=== PATIENT | female | born 1955 | race Hispanic/Latino ===

== ENCOUNTER 2016-09-25 09:04 | Emergency (ER) | payer OTHER, MEDICARE ==
[2016-09-25 09:04] VITALS: BMI 23.0
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
[2016-09-25 10:06] VITALS: TEMP 98.2
[2016-09-25 10:53] VITALS: O2SAT 99
[2016-09-25 11:03] VITALS: BP 132/79; PULSE 66; RESP 18
--- NOTE | 2016-09-25 11:27 | RAD ---
PROCEDURE: Right Hip and pelvis Radiographs. HISTORY: pain COMPARISON: None. FINDINGS: BONES: Normal. No fracture. JOINTS: Normal. SOFT TISSUES: Normal. OTHER FINDINGS: None. IMPRESSION: Negative study
--- NOTE | 2016-09-25 11:29 | RAD ---
PROCEDURE: Right Knee Radiographs. HISTORY: pain COMPARISON: None. FINDINGS: BONES: Normal. No fracture. JOINTS: Normal. No osteoarthritis. JOINT EFFUSION: None. OTHER FINDINGS: The patella is unremarkable IMPRESSION: Normal radiographs of the right knee.
== END 2016-09-25 11:21 | disposition home or self-care (01) ==
LOC: ED 09:04
DX: M25.561 Pain in right knee (principal)
CPT/HCPCS: 73502; 73562; 96372; 99284; J1885

== ENCOUNTER 2017-06-26 09:10 | Inpatient (IN) | payer MEDICARE, OTHER ==
[2017-06-26 09:26] VITALS: BMI 24.7
--- NOTE | 2017-06-26 10:04 | RAD ---
HISTORY: dizziness COMPARISON: No prior. FINDINGS: LUNGS: No active pulmonary disease. PLEURA: No significant pleural effusion identified, no pneumothorax apparent. CARDIOVASCULAR: Normal. OSSEOUS STRUCTURES: No significant abnormalities. VISUALIZED UPPER ABDOMEN: Normal. OTHER FINDINGS: None. IMPRESSION: No active disease.
[2017-06-26] MEDS ORDERED: Sodium Chloride 0.9% 500 ML IV STA (10:21)
--- NOTE | 2017-06-26 10:21 | ED PDOC ---
Arrival/HPI - General Chief Complaint: Lower Extremity Problem/Injury Time Seen by Provider: 06/26/17 09:33 Historian: Patient - History of Present Illness Narrative History of Present Illness (Text): 06/26/17 10:18 62-year-old female presents today with dizziness, unsteady gait and generalized weakness. Patient states yesterday she noticed that even with walking with a walker she felt as if she was walking on a cruise ship. Patient states she felt as if her gait was off balance and she felt as if she was going to fall. Patient denies headaches or weakness. She denies chest pain or shortness of breath. She denies abdominal pain. Patient states she has been constipated lately. Patient states she had a small bowel movement this morning. Patient denies bladder or bowel incontinence. Patient states she has a history of diabetes and a history of diabetic neuropathy. Patient states she has seen a neurologist in the past. Patient denies any recent trauma or injury. Patient denies blurred vision. Patient denies changes in appetite. No other complaints Time/Duration: Other (yesterday) Past Medical History - Provider Review Nursing Documentation Reviewed: Yes - Travel History Have you recently traveled outside [place] w/in the past 3 mons?: No - Tetanus Immunization Tetanus Immunization: Unknown - Cardiac Hx Hypertension: Yes - Pulmonary Hx Respiratory Disorders: No - Neurological Hx Neurological Disorder: No - HEENT Hx HEENT Disorder: No - Renal Hx Renal Disorder: No - Endocrine/Metabolic Hx Diabetes Mellitus Type 2: Yes - Hematological/Oncological Hx Blood Transfusions: No - Musculoskeletal/Rheumatological Hx Back Pain: Yes Hx Degenerative Joint Disease: Yes Other/Comment: Charcot Joint (Left Ankle) - Psychiatric Hx Substance Use: No - Surgical History Other/Comment: Left Shoulder Surgery (2012). Left Ankle - Anesthesia Hx Anesthesia Reactions: Yes Hx Malignant Hyperthermia: No Family/Social History - Physician Review Nursing Documentation Reviewed: Yes Family/Social History: Unknown Family HX Smoking Status: Never Smoked Hx Alcohol Use: Yes Hx Substance Use: No Allergies/Home Meds Allergies/Adverse Reactions: Allergies No Known Allergies Allergy (Verified 08/08/13 10:26) Home Medications: Home Meds Medication Instructions Recorded Confirmed Alprazolam [Xanax] 1 tab PO BID 09/25/16 09/25/16 Aspirin [Aspirin Chewable] 1 tab PO Q72 09/25/16 09/25/16 Citalopram Hydrobromide [Celexa] 1 tab PO DAILY 09/25/16 09/25/16 DULoxetine [Cymbalta] 1 cap PO BID 09/25/16 09/25/16 Multivitamin/Iron/Folic Acid 1 tab PO DAILY 09/25/16 09/25/16 [Centrum Adults Tablet] Naloxegol Oxalate [Movantik] 1 tab PO DAILY 09/25/16 09/25/16 Pregabalin [Lyrica] 1 cap PO TID 09/25/16 09/25/16 Valsartan [Diovan] 1 tab PO DAILY 09/25/16 09/25/16 metFORMIN [glucOPHAGE] 1 tab PO DAILY 09/25/16 09/25/16 Review of Systems - Review of Systems Constitutional: Fatigue. absent: Fevers ENT: absent: Sore Throat, Sinus Congestion Respiratory: absent: SOB, Cough Cardiovascular: absent: Chest Pain, Palpitations Gastrointestinal: Constipation. absent: Abdominal Pain, Diarrhea, Nausea, Vomiting Genitourinary Female: absent: Dysuria, Frequency, Hematuria Musculoskeletal: Arthralgias, Back Pain (chronic). absent: Neck Pain Skin: absent: Rash, Pruritis Neurological: Dizziness, Disequilibrium. absent: Headache Psychiatric: absent: Anxiety, Depression, Suicidal Ideation Physical Exam Vital Signs Reviewed: Yes Vital Signs Temp Pulse Resp BP Pulse Ox 06/26/17 09:27 81 16 130/91 H 99 06/26/17 09:26 98.8 F 72 18 130/90 98 Temperature: Afebrile Blood Pressure: Normal Pulse: Regular Respiratory Rate: Normal Appearance: Positive for: Well-Appearing, Non-Toxic, Comfortable Pain Distress: None Mental Status: Positive for: Alert and Oriented X 3 - Systems Exam Head: Present: Atraumatic Mouth: Present: Dry. No: Drooling, Trismus Pharnyx: Present: Normal Neck: Present: Normal Range of Motion Respiratory/Chest: Present: Clear to Auscultation, Good Air Exchange. No: Respiratory Distress, Accessory Muscle Use Cardiovascular: Present: Regular Rate and Rhythm, Normal S1, S2. No: Murmurs Abdomen: No: Tenderness, Distention, Peritoneal Signs, Rebound, Guarding Rectal: Present: Normal Rectal Tone. No: Occult Blood, Rectal Tenderness, Gross Blood, Melena, Hemorrhoids, Fissures Back: Present: Normal Inspection. No: CVA Tenderness, Midline Tenderness, Paraspinal Tenderness Upper Extremity: Present: Normal ROM Lower Extremity: Present: Normal ROM, Neurovascularly Intact, Capillary Refill < 2 s. No: CALF TENDERNESS, Tenderness, Swelling, Erythema Neurological: Present: GCS=15, Speech Normal, Motor Func Grossly Intact. No: Normal Sensory Function (decreased sensation in lower legs bilaterally), Gait Normal Skin: Present: Warm, Dry, Normal Color. No: Rashes Psychiatric: Present: Alert, Oriented x 3 Medical Decision Making ED Course and Treatment: 06/26/17 10:22 62yr old female with dizziness and disequilibrium since yesterday. No trauma or injury CBC: wnl CMP: wnl Troponin: wnl EKG: Sinus rhythm with PACs at 81 bpm normal axis normal intervals no ST elevations Chest x-ray: wnl Urinalysis: wnl Head CT: FINDINGS: HEMORRHAGE: No intracranial hemorrhage. BRAIN: No mass effect or edema. No atrophy or chronic microvascular ischemic changes. VENTRICLES: Unremarkable. No hydrocephalus. CALVARIUM: Unremarkable. PARANASAL SINUSES: There is complete opacification of the left maxillary sinus and partial opacification of left ethmoid and frontal sinuses MASTOID AIR CELLS: Unremarkable as visualized. No inflammatory changes. OTHER FINDINGS: None. IMPRESSION: No acute intracranial findings. Left-sided sinusitis 06/26/17 11:38 pt is non toxic well appearing; no distress. Asa given Po augmentin given Po 06/26/17 12:[address] sun; accepts observational status admission; disequilibrium and generalized weakness. impression; disequilibrium, generalized weakness, sinusitis Admit observational status to remote telemetry with neurologist consult. Reassessment Condition: Re-examined, Unchanged - Lab Interpretations Lab Results: 06/26/17 10:10 06/26/17 10:10 Lab Results 06/26/17 10:55: Urine Color Yellow, Urine Appearance Clear, Urine pH 6.0, Ur Specific [place] >= 1.030, Urine Protein 30 H, Urine Glucose (UA) Negative, Urine Ketones >=80, Urine Blood Negative, Urine Nitrate Negative, Urine Bilirubin Negative, Urine Urobilinogen 0.2, Ur Leukocyte Esterase Negative, Urine RBC 0 - 2, Urine WBC 0 - 2, Ur Epithelial Cells Many, Urine Bacteria Mod 06/26/17 10:10: WBC 9.9, RBC 4.61, Hgb 13.1, Hct 40.6, MCV 88.1, MCH 28.4, MCHC 32.3, RDW 13.1, Plt Count 418, MPV 9.6, Gran % 81.6 H, Lymph % (Auto) 13.3 L, [place] % (Auto) 4.1, Eos % (Auto) 0.8 L, Baso % (Auto) 0.2, Gran # 8.05 H, Lymph # (Auto) 1.3, [place] # (Auto) 0.4, Eos # (Auto) 0.1, Baso # (Auto) 0.02 06/26/17 10:10: Sodium 143, Potassium 3.9, Chloride 106, Carbon Dioxide 24, Anion Gap 17, BUN 14, Creatinine 0.7, Est GFR ( Amer) > 60, Est GFR (Non- Af Amer) > 60, Random Glucose 100, Calcium 10.2, Total Bilirubin 0.4, AST 16, ALT 26, Alkaline Phosphatase 56, Lactate Dehydrogenase 335, Total Creatine Kinase 30 L, Troponin I < 0.01, Total Protein 7.4, Albumin 4.5, Globulin 2.9, Albumin/Globulin Ratio 1.5 - RAD Interpretation Radiology Orders: 06/26/17 09:40 HEAD W/O CONTRAST [CT] Stat CHEST PORTABLE [RAD] Stat - Medication Orders Current Medication Orders: Aspirin (Aspirin) 325 mg PO STAT STA Stop: 06/26/17 12:43 Discontinued Medications Sodium Chloride (Sodium Chloride 0.9%) 500 mls @ 999 mls/hr IV .Q31M STA Stop: 06/26/17 10:51 Last Admin: 06/26/17 11:39 Dose: 999 mls/hr eMAR Start Stop Document 06/26/17 11:39 [email or web address] (Rec: 06/26/17 11:39 [email or web address] [id number]) Intravenous Solution Start Date 06/26/17 Start Time 11:39 End Date 06/26/17 NIHSS Scale ([place]) Time Performed: 09:40 - How Severe is the Stoke Baseline Level of Consciousness: 0=Alert LOC to Questions: 0=Both comments correct LOC to commands: 0=Obeys both correctly Best Gaze: 0=Normal Visual: 0=No visual loss Facial: 0=Normal Motor Arm - Left: 0=No drift Motor Arm - Right: 0=No drift Motor Leg - Left: 0=No drift Motor Leg - Right: 0=No drift Limb Ataxia: 0=Absent Sensory: 1=Mild to moderate loss Best Language: 0=No aphasia Dysarthia: 0=Normal articulation Extinction & Inattention (Neglect): 0=Normal, no object Score: 1 Risk Level: Minor Stroke Risk rTPA Inclusion/Exclusion - Refusal of Treatment Patient Refused Treatment: No - Inclusion Criteria for Altepase Patient is 18 years or Older: Yes The Clinical Diagnosis of Ischemic Stroke That is Causing a Potentially Disabling Neurological Deficit: No Time of Onset is Well Established to be Less Than 270 Minute Before Treatment Would Begin: No Risk/Benefit Discussed With Patient/Family Member Present: No Disposition/Present on Arrival - Present on Arrival Any Indicators Present on Arrival: No History of DVT/PE: No History of Uncontrolled Diabetes: No Urinary Catheter: No History of Decub. Ulcer: No History Surgical Site Infection Following: None - Disposition Have Diagnosis and Disposition been Completed?: Yes Diagnosis: Disequilibrium, Generalized weakness Disposition: HOSPITALIZED Disposition Time: 12:00 Patient Plan: Observation Patient Problems: Current Active Problems Problem Status Onset Disequilibrium Acute Generalized weakness Acute Condition: STABLE Discharge Instructions (ExitCare): Weakness (ED) Forms: [email or web address] ([place])
[2017-06-26 10:27] LABS: BASO # 0.02 K/mm3 (0.0-2.0); BASO % 0.2 % (0.0-3.0); EOS # 0.1 (0.0-0.7); EOS % 0.8 % (1.5-5.0); GRAN # 8.05 (1.4-6.5); GRAN % 81.6 % (50.0-68.0); HEMOGLOBIN 13.1 g/dL (12.0-16.0); LYMPH # 1.3 (1.2-3.4); LYMPH % 13.3 % (22.0-35.0); MEAN CELL VOLUME 88.1 fl (80.0-105.0); MEAN CORPUSCULAR HEMOGLOBIN 28.4 pg (25.0-35.0); MEAN CORPUSCULAR HGB CONC 32.3 g/dl (31.0-37.0); MEAN PLATELET VOLUME 9.6 fl (7.0-11.0); MONO # 0.4 (0.1-0.6); MONO % 4.1 % (1.0-6.0); RBC 4.61 10^6/uL (3.5-6.1); RED CELL DISTRIBUTION WIDTH 13.1 % (11.5-14.5); WHITE BLOOD COUNT 9.9 10^3/ul (4.5-11.0)
[2017-06-26 10:31] LABS: ALB/GLOB RATIO 1.5 (1.1-1.8); ALBUMIN 4.5 g/dL (3.0-4.8); ALT/SGPT 26 U/L (7-56); AST/SGOT 16 U/L (14-36); BLOOD UREA NITROGEN 14 mg/dL (7-21); CALCIUM 10.2 mg/dL (8.4-10.5); GFR AFRICAN-AMERICAN > 60; GFR NON-AFRICAN AMERICAN > 60
[2017-06-26 10:42] LABS: TROPONIN I < 0.01 ng/mL
[2017-06-26 11:08] LABS: URINE APPEARANCE CLEAR (CLEAR); URINE BILIRUBIN NEGATIVE (NEGATIVE); URINE BLOOD NEGATIVE (NEGATIVE); URINE COLOR YELLOW (YELLOW); URINE GLUCOSE (UA) NEGATIVE (NEGATIVE); URINE LEUKOCYTE ESTERASE NEGATIVE Leu/uL (NEGATIVE); URINE PROTEIN 30 mg/dL (<30 mg/dL); URINE UROBILINOGEN 0.2 E.U./dL (<1 E.U./dL)
--- NOTE | 2017-06-26 11:13 | CT ---
PROCEDURE: CT HEAD WITHOUT CONTRAST. HISTORY: dizziness COMPARISON: None available. TECHNIQUE: Axial computed tomography images were obtained through the head/brain without intravenous contrast. Radiation dose: Total exam DLP = 904 mGy-cm. This CT exam was performed using one or more of the following dose reduction techniques: Automated exposure control, adjustment of the mA and/or kV according to patient size, and/or use of iterative reconstruction technique. FINDINGS: HEMORRHAGE: No intracranial hemorrhage. BRAIN: No mass effect or edema. No atrophy or chronic microvascular ischemic changes. VENTRICLES: Unremarkable. No hydrocephalus. CALVARIUM: Unremarkable. PARANASAL SINUSES: There is complete opacification of the left maxillary sinus and partial opacification of left ethmoid and frontal sinuses MASTOID AIR CELLS: Unremarkable as visualized. No inflammatory changes. OTHER FINDINGS: None. IMPRESSION: No acute intracranial findings. Left-sided sinusitis
[2017-06-26 11:40] LABS: URINE RBC 0 - 2 /hpf (0-2); URINE WBC 0 - 2 /hpf (0-6)
[2017-06-26 11:41] LABS: URINE BACTERIA MOD (NEG); URINE EPITHELIAL CELLS MANY /hpf (0-5)
[2017-06-26] MEDS ORDERED: Amoxicillin-Clav 875-125 mg Tab PO STA (13:54)
--- NOTE | 2017-06-26 14:38 | CARD ---
APPROVED REPORT EKG Measurement Heart [id number] IN [id number] <Conclusion> Sinus rhythm with premature atrial complexes Small q in 2,3, F
[2017-06-26] MEDS ORDERED: Pneumococcal 23-Valent Vaccine IM ONE (16:25)
--- NOTE | 2017-06-26 16:47 | CON ---
DATE: 06/26/2017 NEUROLOGY CONSULTATION CHIEF COMPLAINT: Unsteady gait, generalized weakness. HISTORY OF PRESENT ILLNESS: This is a 62-year-old woman with history of hypertension, dyslipidemia, type 2 diabetes mellitus, history of diabetic peripheral neuropathy, on Cymbalta and history Charcot joints and arthritis, who presented to the hospital because of feeling lightheaded and felt like when she was walking with her walker, she felt she was walking on the cruise ship and felt off balance and that she was going to fall. No focal weakness of the extremities. She had a small bowel movement this morning, but has been also constipated recently. She denies any focal weakness of the extremities. No changes in sense of vision, taste, or smell. Her vital signs are stable. Blood pressure 129/88. PAST MEDICAL HISTORY: History of hypertension, dyslipidemia, and diabetes. REVIEW OF SYSTEMS: A 14-point review of systems negative except as per the HPI. FAMILY HISTORY: Noncontributory. ALLERGIES: NO KNOWN DRUG ALLERGIES. SOCIAL HISTORY: No illicit drug use, smoking, or EtOH abuse. MEDICATIONS: Reviewed by nurse per reconciliation sheet. PHYSICAL EXAMINATION: VITAL SIGNS: Temperature 98.2, pulse rate 75, blood pressure 129/88, respiratory rate 19, and oxygen saturation 99% on room air. GENERAL: The patient is sitting up in bed, in no acute distress. HEENT: Head is atraumatic and normocephalic. PERRLA. Extraocular muscles intact. NECK: Supple. No JVD. No adenopathy noted. LUNGS: Clear to auscultation. No adventitious sounds. HEART: S1 and S2, normal rate and rhythm. No murmur, rubs, or gallops. ABDOMEN: Soft, nontender, and nondistended. Bowel sounds present. EXTREMITIES: No clubbing. No cyanosis. Peripheral pulses 2+ felt bilaterally. NEUROLOGIC: The patient is alert and oriented to person, place, month, and year. Speech is fluent without any errors. Cranial nerves II through XII intact. Motor: Moves all extremities equally. Toes are downgoing bilaterally. Sensory: Decreased light touch and pinprick up to the calves bilaterally. Decreased vibration of the toes. DTRs are 2+ throughout except for 1 at both knees and also the ankles. Coordination: [id number] intact. No dysmetria noted. Gait is deferred for now. LABORATORY DATA: Sodium 143, potassium 3.9, chloride 106, carbon dioxide 24. BUN of 14, creatinine 0.7. Random glucose 100. ASSESSMENT AND PLAN: This is a 62-year-old woman with past medical history of hypertension, dyslipidemia, type 2 diabetes mellitus, diabetic peripheral neuropathy, felt lightheaded, felt like she was off balance as she was on a cruise ship and was going to fall. CT scan of the head showed no acute intracranial abnormalities. Her CBC and CMP within normal limits. Chest x-ray is within normal limits. At this time, she does have on neurological evaluation evidence diabetic peripheral neuropathy which can give her wide-based gait disequilibrium. At this time, would recommend, 1. MRI of the brain to rule out any acute cerebellar infarcts. 2. Keep blood sugars between 140 and 180. 3. Aspirin 81 mg, Lipitor 40 mg for stroke prevention. 4. PT/OT evaluation. 5. Continue with ongoing pregabalin for underlying neuropathy that she was taken at home and continue with current present medical management. We will get MRI of the brain. Thank you for this consult. Federico Figueroa MD
[2017-06-26] MEDS ORDERED: KETOROLAC TROMETHAMINE 10 MG PO PRN (18:27)
--- NOTE | 2017-06-26 20:36 | MRI ---
EXAM: MR Head Without Intravenous Contrast EXAM DATE/TIME: 06/26/2017 3:41 PM CLINICAL HISTORY: The patient age is 62 years old and is female; Signs and symptoms; Altered mental status/memory loss; Confusion or disorientation; Additional info: Ataxia, AMS patient refused further scanning, best exam possible Facility exam id and description: Mri br s brain without contrast TECHNIQUE: Magnetic resonance images of the head/brain without intravenous contrast in multiple planes. COMPARISON: MR - BRAIN W WO CONTRAST 2016-12-21 13:09 FINDINGS: Limitations: This study is limited by the absence of sagittal T1 and axial FLAIR sequences. Brain: Foci of mild increased signal intensity are identified on the diffusion sequence within the right cerebellar lobe, right middle cerebellar peduncle, and right posterior medulla, new compared to the prior study. These findings are concerning for subacute infarcts. There are scattered foci of high T2 signal intensity within the cerebral white matter. There is no mass effect or restricted diffusion associated with these foci. In a patient this age, this likely represents chronic small vessel ischemic disease. T2 hyperintense chronic lacunar infarcts are identified within the right thalamus, aliyah, and right cerebral peduncle. There is no restricted diffusion suggestive of an acute infarct on the remainder of the study. Ventricles: There is mild stable ventriculomegaly. Stable sulcal atrophy is also visualized. Bones/joints: No acute adenopathy. Sinuses: There is complete filling of the left maxillary sinus, with mucosal thickening and complex effusion. Effusions are visualized within left ethmoid air cells. There is mucosal thickening of the left frontal sinus. Mastoid air cells: Minimal effusion is identified within the right mastoid air cells. Auditory system: Evaluation of the left internal auditory canal is limited. Orbits: Bilateral orbital lens implants are identified. IMPRESSION: 1. Foci of mild increased signal intensity are identified on the diffusion sequence within the right cerebellar lobe, right middle cerebellar peduncle, and right posterior medulla, new compared to the prior study. These findings are concerning for subacute infarcts. 2. There is mild stable ventriculomegaly. Stable sulcal atrophy is also visualized. 3. There are scattered foci of high T2 signal intensity within the cerebral white matter. In a patient this age, this likely represents chronic small vessel ischemic disease. 4. Chronic lacunar infarcts are identified within the right thalamus, aliyah, and right cerebral peduncle. 5. Paranasal sinus disease is noted above. 6. This study is incomplete.
[2017-06-26] MEDS: Insulin Lispro (humaLOG) LOW Coverage SC SCH (21:33)
[2017-06-27] MEDS: oxyCODONE 30 mg Immediate Release Tab PO PRN ×3 (06:59→22:08)
[2017-06-27 07:44] LABS: HDL CHOLESTEROL 46 mg/dL (29-60)
[2017-06-27 07:55] LABS: LDL CHOLESTEROL 55 mg/dL (0-129)
--- NOTE | 2017-06-27 08:11 | CP.PCM.HP ---
<Celine Stone - Last Filed: 06/27/17 08:59> History of Present Illness - History of Present Illness History of Present Illness: H&P for Robe Taylor PGY2 This is a 62yo female with past medical history of HTN, NIDDM, osteoarthritis, chronic pain on opiates, anxiety/depression who came to ED for weakness. Patient reports she was walking with her walker when all of a sudden she felt unsteady on her feet. She states she was feeling off-balance and as if she was "on a boat". This has never happened before and she did not fall. Patient called in the ambulance to bring her to the hospital. She denies dizziness, vision/hearing changes, numbness/tingling, fall, chest pain or shortness of breath, fever or chills. Patient does report feeling constipated and anxious at times. Past medical history: HTN, NIDDM, peripheral neuropathy, osteoarthritis, chronic pain on opiates, anxiety/depression Past surgical history: Sugery on L foot for charcot joint Home meds: As per MAR Allergies: NKDA Social history: Drinks occasionally, Denies tobacco or drug use. Uses walker at home Family history: Mom- 96 (living) denies history of DC, CVA, or cancer in immediate family Present on Admission - Present on Admission Any Indicators Present on Admission: No Review of Systems - Review of Systems All systems: reviewed and no additional remarkable complaints except Review of Systems: + for generalized weakness, constipation, and anxiety and all other ROS were reviewed and were negative Past Patient History - Tetanus Immunizations Tetanus Immunization: Unknown - Past Social History Smoking Status: Never Smoked Alcohol: Occasional Drugs: Denies - CARDIAC Hx Hypertension: Yes - PULMONARY Hx Respiratory Disorders: No - NEUROLOGICAL Hx Neurological Disorder: No - HEENT Hx HEENT Problems: No - RENAL Hx Chronic Kidney Disease: No - ENDOCRINE/METABOLIC Hx Diabetes Mellitus Type 2: Yes - HEMATOLOGICAL/ONCOLOGICAL Hx Blood Transfusions: No - INTEGUMENTARY Hx Dermatological Problems: Yes Other/Comment: areas of red skin and red spider veins to ble, rednes both knees , scratch navas r ankle, callous 0.5cm round r great toe, pt refused to turn over to assess back due to c/o pain - MUSCULOSKELETAL/RHEUMATOLOGICAL Hx Back Pain: Yes Hx Degenerative Joint Disease: Yes Other/Comment: Charcot Joint (Left Ankle) - GASTROINTESTINAL Hx Gastrointestinal Disorders: Yes (constipation) - PSYCHIATRIC Hx Substance Use: No - SURGICAL HISTORY Other/Comment: Left Shoulder Surgery (2012). Left Ankle - ANESTHESIA Hx Anesthesia Reactions: Yes Hx Malignant Hyperthermia: No Meds Allergies/Adverse Reactions: Allergies Allergy/AdvReac Type Severity Reaction Status Date / Time No Known Allergies Allergy Verified 08/08/13 10:26 Physical Exam - Constitutional Appears: No Acute Distress - Head Exam Head Exam: ATRAUMATIC, NORMAL INSPECTION, NORMOCEPHALIC - Eye Exam Eye Exam: Normal appearance, PERRL Pupil Exam: NORMAL ACCOMODATION - ENT Exam ENT Exam: Mucous Membranes Moist - Neck Exam Neck exam: Positive for: Normal Inspection - Respiratory Exam Respiratory Exam: Clear to Auscultation Bilateral, NORMAL BREATHING PATTERN. absent: Rales, Rhonchi, Wheezes - Cardiovascular Exam Cardiovascular Exam: Tachycardia, REGULAR RHYTHM, +S1, +S2. absent: Gallop, Rubs, Systolic Murmur - GI/Abdominal Exam GI & Abdominal Exam: Distended (slightly ), Normal Bowel Sounds, Soft. absent: Mass, Rebound, Rigid, Tenderness - Extremities Exam Extremities exam: Positive for: normal inspection. Negative for: calf tenderness, pedal edema - Neurological Exam Neurological exam: Alert, CN II-XII Intact, Oriented x3 - Expanded Neurological Exam Expanded Patient oriented to: person, place, time Speech: Fluid Speech Cranial nerves: EOM's Intact: Normal, Facial Palsey w/Forehead Movement: Normal , Facial Palsey w/o Forehead Movement: Normal, Facial Sensation: Normal, Tongue Deviation: Normal Ataxia: Yes Cerebellar Function: Finger to Nose: Abnormal Left, Abnormal Right Upper motor neuron: Babinski Sign: Normal, Ludwig Neglect: Normal, Pronator Drift : Normal, Sensory Extinction: Normal Sensory exam: Lower Extremity 2 Point Discrimination: Normal, Lower Extremity Light Touch: Normal, Upper Extremity 2 Point Discrimination: Normal, Upper Extremity Light Touch: Normal Neuro motor strength exam: Left Upper Extremity: 5, Right Upper Extremity: 5, Left Lower Extremity: 5, Right Lower Extremity: 5 Coma Scale Eye Opening: SPONTANEOUS Coma Scale Motor Response: OBEYS COMMANDS Coma Scale Verbal: Oriented Coma Scale Total: 15 - Psychiatric Exam Psychiatric exam: Anxious, Normal Affect - Skin Skin Exam: Dry, Warm Results - Vital Signs Recent Vital Signs: Last Vital Signs Temp 98.2 F 06/27/17 07:51 Pulse 89 06/27/17 07:51 Resp 18 06/27/17 07:51 BP 146/82 06/27/17 07:51 Pulse Ox 96 06/27/17 07:51 - Labs Result Diagrams: 06/26/17 10:10 06/26/17 10:10 Labs: Laboratory Results - last 24 hr 06/26/17 06/27/17 06/27/17 21:30 07:00 07:35 POC Glucose (mg/dL) 88 92 Triglycerides 153 Cholesterol 137 LDL Cholesterol Direct 55 HDL Cholesterol 46 Assessment & Plan - Assessment and Plan (Free Text) Assessment: This is a 62yo female with past medical history of HTN, NIDDM, osteoarthritis, chronic pain on opiates, anxiety/depression admitted for sudden onset weakness. Head CT was negative, but MRI of brain was positive for subacute infarcts in R cerebellar and R posterior medullary region. Plan: 1. CVA - Head CT negative - MRI showed subacute infarcts in R cerebellar, R posterior medullary region with chronic lacunar infarcts - Neuro consulted- recs appreciated - ASA and Lipitor - Lipid panel within normal limits, Blood glucose controlled - PT/OT - Maintain euglycemia - Will obtain Echo (last echo in 2014 was normal with EF of 50%) 2. HTN - Continue Home meds: Cozaar 3. NIDDM - Continue Metformin, insulin sliding scale as needed - Maintain glucose between 140-180s - Continue Lyrica for hx of peripheral neuropathy 4. Anxiety/depression - continue home meds: Cymbalta, Celexa and Xanax - Will start patient on Ambien 5. Osteoarthritis - Continue home pain meds: Oxycodone 30mg q6h prn and Movantik 6. Constipation - Secondary to opioid use - Will give one dose enema then miralax daily GI ppx: Pepcid DVT ppx: Heparin SC Dispo: Patient will need physical therapy evaluation for possible acute v. subacute rehab. Case seen, discussed and reviewed with Dr. Perez. Robe Stone PGY2 - Date & Time Date: 06/27/17 Time: 09:22 <Nakul Perez - Last Filed: 06/27/17 18:24> Results - Vital Signs Recent Vital Signs: Last Vital Signs Temp 98.2 F 06/27/17 07:51 Pulse 89 06/27/17 07:51 Resp 18 06/27/17 07:51 BP 146/82 06/27/17 07:51 Pulse Ox 96 06/27/17 07:51 - Labs Result Diagrams: 06/26/17 10:10 06/26/17 10:10 Labs: Laboratory Results - last 24 hr 06/26/17 06/27/17 06/27/17 21:30 07:00 07:35 POC Glucose (mg/dL) 88 92 Triglycerides 153 Cholesterol 137 LDL Cholesterol Direct 55 HDL Cholesterol 46 06/27/17 06/27/17 11:15 16:14 POC Glucose (mg/dL) 86 83 Triglycerides Cholesterol LDL Cholesterol Direct HDL Cholesterol Assessment & Plan - Assessment and Plan (Free Text) Plan: Pt seen and examined by me. I reviewed the notes of the biomedical photographer and I agree with the note. I reviewed the labs and medications. Pt with MRI showing CVA in the Cerebellum. Neuro evaluation appreciated. Pt with need rehab. [facility]meet for constipation. She is on chronic narcotics for constipation.
[2017-06-27] MEDS ORDERED: Mineral Oil Enema 135 ml RC ONE (08:16)
[2017-06-27] MEDS: Insulin Lispro (humaLOG) LOW Coverage SC SCH ×4 (08:59→22:00)
[2017-06-27] MEDS: NALOXEGOL OXALATE PO SCH (10:00)
[2017-06-27] MEDS: POLYETHYLENE GLYCOL 3350 17 GM/Dose PACKET PO SCH ×2 (10:05→17:48)
[2017-06-27] MEDS: Multivitamin With Minerals Tab PO SCH (10:05)
--- NOTE | 2017-06-27 12:39 | US ---
PROCEDURE: Bilateral carotid artery duplex ultrasound HISTORY: Carotid stenosis CVA PHYSICIAN(S): Marc Lang MD. TECHNIQUE: Duplex sonography and color-flow Doppler were used to evaluate the carotid bifurcations and limited segments of the vertebral arteries bilaterally. FINDINGS: There is mild smooth hypoechoic plaque noted at the carotid bifurcations bilaterally. The peak systolic velocity in the proximal right internal carotid artery is 55 cm/sec. This corresponds to a 20 to 39% proximal right ICA stenosis. Normal systolic velocities are noted in the proximal right external carotid artery. There is antegrade flow in the right vertebral artery. The peak systolic velocity in the proximal left internal carotid artery is 62 cm/sec. This corresponds to a 20 to 39% proximal left ICA stenosis. Normal systolic velocities are noted in the proximal left external carotid artery. There is antegrade flow in the left vertebral artery. IMPRESSION: 1. Bilateral 20-39% proximal ICA stenoses. 2. Antegrade flow in both vertebral arteries.
--- NOTE | 2017-06-27 15:48 | CON ---
DATE: 06/27/2017 ORTHOPEDIC CONSULT REPORT LOCATION: A 62-year-old female in room 368, bed 1. HISTORY OF PRESENT ILLNESS: She was admitted for dyskinesia and feeling dizzy, and past history of neuropathy and a succesful fusion left foot and osteoarthritis of her right shoulder. An eventual workup after admission on 06/26/2017, showed that she had a brain MRI showing that she had a stroke affecting her balance and equilibrium and consistent with subacute infarcts and so she was evaluated and treated by Dr. Figueroa. I was asked to see her for her imbalance and weakness and dyskinesia. What I would like to do right now is to ask therapy to continue strengthening exercise, ambulate with a walker, and do things to help her balance, so she does not fall. There is no need to do any active orthopedic care of her right arthritic shoulder as the range of motion is functional and her left foot triple arthrodesis is performing well that was done for neuropathy from mild diabetes, so the main thing I could do is to ask therapy to strengthen her muscles of upper and lower legs and improve her coordination and get her to be more mobile safely. FINAL DIAGNOSIS: Weakness of her upper and lower extremities, to treat with physical therapy. Reyes Love DO MARISEL
--- NOTE | 2017-06-27 19:47 | PN ---
DATE: 06/27/2017 NEUROLOGY FOLLOWUP CHIEF COMPLAINT: Followup for unsteadiness and disequilibrium. SUBJECTIVE: Patient is seen and examined at bedside. She underwent an MRI of the brain, which showed subacute infarct in the right cerebellar and right middle cerebellar peduncle and right posterior medulla, which is consistent with her underlying presenting complaints. She also has evidence of diabetic sensorimotor peripheral neuropathy. Also she has old chronic infarction in the right thalamus and aliyah and in right cerebellar peduncle as well. I recommend that she would be on aspirin, Plavix and Lipitor 40 mg for stroke prevention. She is on Cymbalta and Lyrica for neuropathic relief. No treatments overnight. PAST MEDICAL HISTORY: Hypertension, dyslipidemia, type 2 diabetes mellitus, diabetic peripheral neuropathy. REVIEW OF SYSTEMS: A 14-point review of systems negative except as per the HPI. FAMILY HISTORY: Noncontributory. ALLERGIES: NO KNOWN DRUG ALLERGIES. SOCIAL HISTORY: No illicit drug use, smoking or EtOH abuse. MEDICATIONS: Reviewed by nurse per reconciliation sheet. PHYSICAL EXAMINATION: VITAL SIGNS: Temperature 98.2, pulse rate 89, blood pressure 146/82, respiratory rate 18, and oxygen saturation 96% by room air. GENERAL: The patient is sitting up in bed, in no acute distress. HEENT: Head is atraumatic and normocephalic. PERRLA. Extraocular muscles intact. NECK: Supple. No JVD. No adenopathy noted. LUNGS: Clear to auscultation. No adventitious sounds. HEART: S1 and S2, normal rate and rhythm. No murmur, rubs or gallops. ABDOMEN: Soft, nontender, and nondistended. Bowel sounds present. EXTREMITIES: No clubbing. No cyanosis. Peripheral pulses 2+ felt bilaterally. NEUROLOGIC: The patient is alert and oriented to person, place, month and year. Speech is fluent without any errors. Cranial nerves II through XII intact. Motor: Moves all extremities equally. No pronator drift seen. Toes are downgoing bilaterally. Sensory: Decreased light touch and pinprick up to the calves bilaterally. Decreased vibration of the toes. DTRs are 2+ throughout except for 1 at both ankles and knees. Coordination: [id number] intact. No clear-cut dysmetria noted. Gait is deferred for now. LABORATORY DATA: Sodium . ASSESSMENT AND PLAN: This is a 62-year-old woman with history of hypertension, dyslipidemia, type 2 diabetes mellitus, diabetic peripheral neuropathy on Lyrica and Cymbalta and history of anxiety, depression, felt lightheaded and felt like she was off balance as she was [place]. She underwent an MRI of the brain in addition, which showed evidence of an acute infarct in the right cerebellar and right middle cerebellar peduncle and right posterior medulla area, most likely subacute in nature, superimposed on underlying chronic infarction in her right thalamus, aliyah and right cerebellar peduncle, which is consistent for why she has disequilibrium and she also has evidence of sensorimotor diabetic peripheral neuropathy in addition. At this time, recommend, 1. Keep her blood sugars between 140 to 180. 2. Aspirin 81, Plavix 75 and Lipitor 40 for stroke prevention. 3. Keep blood pressure between 120s to 130s systolic and diastolic 70s to 80s. 4. Continue with underlying pregabalin for underlying neuropathy. 5. Will likely need subacute rehabilitation and repeat physical therapy/occupational therapy. Clinically stable. Thank you for this followup. Federico Figueroa MD
[2017-06-28] MEDS: oxyCODONE 30 mg Immediate Release Tab PO PRN (05:51)
[2017-06-28] MEDS: Insulin Lispro (humaLOG) LOW Coverage SC SCH ×3 (08:11→16:36)
[2017-06-28] MEDS ORDERED: Mineral Oil Enema 135 ml RC ONE (08:17)
[2017-06-28] MEDS: Multivitamin With Minerals Tab PO SCH (08:27)
[2017-06-28] MEDS: POLYETHYLENE GLYCOL 3350 17 GM/Dose PACKET PO SCH ×2 (09:23→17:21)
[2017-06-28 09:56] VITALS: RESP 20
--- NOTE | 2017-06-28 11:14 | CP.PCM.PN ---
Addendum entered and electronically signed by Celine Stone DO 06/28/17 11: 21: Patient was also evaluated by ortho for leg pain and arthritis who recommended physical therapy. Original Note: <Celine Stone - Last Filed: 06/28/17 11:08> Subjective - Date & Time of Evaluation Date of Evaluation: 06/28/17 Time of Evaluation: 07:00 - Subjective Subjective: Progress Note for Robe Taylor PGY2 Patient seen and examined at bedside. Overnight patient was found to be retaining urine (~450ml), francois was placed and about 475ml has come out since this am. Patient reports still feeling constipated despite giving enema. She reports this retention does happen when she gets constipated. Otherwise she reports her weakness has been improving. She denies chest pain, shortness of breath, nausea/vomiting/diarrhea, fever/chills, numbness or tingling, dysuria or hematuria. Objective - Vital Signs/Intake and Output Vital Signs (last 24 hours): Temp Pulse Resp BP Pulse Ox 98.0 F 84 20 150/93 H 94 L 06/28/17 06:00 06/28/17 06:00 06/28/17 06:00 06/28/17 06:00 06/28/17 06:00 Intake and Output: 06/28/17 06/28/17 06:59 18:59 Intake Total 540 120 Output Total 250 475 Balance 290 -355 - Medications Medications: Current Medications Alprazolam (Xanax) 1 mg PO BID [facility] PRN Reason: Protocol Last Admin: 06/28/17 09:24 Dose: 1 mg Aspirin (Ecotrin) 81 mg PO DAILY [facility] Last Admin: 06/28/17 09:20 Dose: 81 mg Atorvastatin Calcium (Lipitor) 40 mg PO DIN [facility] Last Admin: 06/27/17 17:48 Dose: 40 mg Citalopram Hydrobromide (Celexa) 10 mg PO DAILY [facility] Last Admin: 06/28/17 09:19 Dose: 10 mg Clopidogrel Bisulfate (Plavix) 75 mg PO DAILY [facility] Last Admin: 06/28/17 09:23 Dose: 75 mg Duloxetine HCl (Cymbalta) 30 mg PO BID [facility] Last Admin: 06/28/17 09:19 Dose: 30 mg Famotidine (Pepcid) 40 mg PO HS [facility] Last Admin: 06/27/17 22:00 Dose: 40 mg Heparin Sodium (Porcine) (Heparin) 5,000 units SC Q12 [facility] PRN Reason: Protocol Last Admin: 06/28/17 09:21 Dose: 5,000 units Insulin Human Lispro (Humalog Low) 0 units SC ACHS [facility] PRN Reason: Protocol Last Admin: 06/28/17 08:11 Dose: Not Given Losartan Potassium (Cozaar) 100 mg PO DAILY [facility] Last Admin: 06/28/17 09:24 Dose: 100 mg Metformin HCl (Glucophage) 500 mg PO DAILY [facility] Last Admin: 06/28/17 09:21 Dose: 500 mg Multivitamins/Minerals (Therapeutic-M Tab) 1 tab PO 0800 [facility] Last Admin: 06/28/17 08:27 Dose: 1 tab Non-Formulary Medication (Naloxegol Oxalate [Movantik]) 1 tab PO DAILY [facility] Last Admin: 06/27/17 10:00 Dose: Not Given Oxycodone HCl (Oxycodone Immediate Release Tab) 30 mg PO Q6H PRN PRN Reason: Pain, severe (8-10) Last Admin: 06/28/17 05:51 Dose: 30 mg Polyethylene Glycol (Miralax) 17 gm PO BID [facility] Last Admin: 06/28/17 09:23 Dose: 17 gm Pregabalin (Lyrica) 75 mg PO TID [facility] Last Admin: 06/28/17 09:23 Dose: 75 mg Zolpidem Tartrate (Ambien) 5 mg PO HS PRN; Protocol PRN Reason: Insomnia Last Admin: 06/27/17 22:01 Dose: 5 mg - Constitutional Appears: No Acute Distress - Head Exam Head Exam: ATRAUMATIC, NORMAL INSPECTION, NORMOCEPHALIC - Eye Exam Eye Exam: EOMI, Normal appearance, PERRL Pupil Exam: NORMAL ACCOMODATION, PERRL - ENT Exam ENT Exam: Mucous Membranes Moist - Neck Exam Neck Exam: Full ROM - Respiratory Exam Respiratory Exam: Clear to Ausculation Bilateral, NORMAL BREATHING PATTERN. absent: Rhonchi, Wheezes, Respiratory Distress - Cardiovascular Exam Cardiovascular Exam: REGULAR RHYTHM, +S1, +S2. absent: Gallop, Rubs, Murmur - GI/Abdominal Exam GI & Abdominal Exam: Distended, Soft, Normal Bowel Sounds. absent: Rigid, Tenderness, Mass, Rebound - Extremities Exam Extremities Exam: Normal Inspection. absent: Tenderness - Neurological Exam Neurological Exam: Alert, Awake, CN II-XII Intact - Psychiatric Exam Psychiatric exam: Normal Affect, Normal Mood - Skin Skin Exam: Dry, Normal Color Assessment and Plan - Assessment and Plan (Free Text) Assessment: This is a 62yo female with past medical history of HTN, NIDDM, osteoarthritis, chronic pain on opiates, anxiety/depression admitted for subacute CVA in R cerebellar region seen on MRI. Plan: 1. CVA - MRI showed subacute infarcts in R cerebellar, R posterior medullary region with chronic lacunar infarcts - Carotid US showed 20-39% ICA stenosis bilaterally - Echo preliminary report showed EF 57% - Continue ASA daily and Lipitor - Neuro consulted- recs appreciated - Continue PT/OT - Maintain euglycemia - Will obtain Echo (last echo in 2014 was normal with EF of 50%) 2. Urinary retention - can be secondary to constipation - patient had francois placed - recommend to remove francois once patient has large BM and spoke with nurse about recommendations - Monitor I&O 3. HTN - Continue Cozaar 4. NIDDM - Metformin, insulin sliding scale as needed - Maintain euglycemia - Cymbalta and Lyrica for hx of peripheral neuropathy 5. Anxiety/depression - Continue Celexa and Xanax - Ambien for insomnia 6. Osteoarthritis - Continue home pain meds: Oxycodone 30mg q6h prn and Movantik 7. Constipation - Secondary to opioid use - Will give one more fleet enema and Lactulose once - Continue Miralax daily - Will continue to monitor for BM 8. Positive urine culture - U/A was negative for UTI and showed multiple epithelial cells - Microbiology came back as positive- most likely secondary to contamination - Patient does not complain of UTI symptoms at this time and is afebrile. - Will monitor GI ppx: Pepcid DVT ppx: Heparin SC Dispo: Patient will need Acute rehab as per PT. Will speak with case preparer and liner. Patient will be able to go to Acute rehab tomorrow once accepted. Case seen, discussed and reviewed with Dr. Perez. Robe Stone PGY2 <Nakul Perez - Last Filed: 06/28/17 21:02> Objective - Vital Signs/Intake and Output Vital Signs (last 24 hours): Temp Pulse Resp BP Pulse Ox 98.3 F 74 20 105/64 93 L 06/28/17 18:00 06/28/17 18:00 06/28/17 18:00 06/28/17 18:00 06/28/17 18:00 Intake and Output: 06/28/17 06/29/17 18:59 06:59 Intake Total 120 Output Total 475 Balance -355 - Medications Medications: Current Medications Alprazolam (Xanax) 1 mg PO BID [facility] PRN Reason: Protocol Last Admin: 06/28/17 17:21 Dose: 1 mg Aspirin (Ecotrin) 81 mg PO DAILY [facility] Last Admin: 06/28/17 09:20 Dose: 81 mg Atorvastatin Calcium (Lipitor) 40 mg PO DIN [facility] Last Admin: 06/28/17 17:20 Dose: 40 mg Citalopram Hydrobromide (Celexa) 10 mg PO DAILY [facility] Last Admin: 06/28/17 09:19 Dose: 10 mg Clopidogrel Bisulfate (Plavix) 75 mg PO DAILY [facility] Last Admin: 06/28/17 09:23 Dose: 75 mg Duloxetine HCl (Cymbalta) 30 mg PO BID [facility] Last Admin: 06/28/17 17:20 Dose: 30 mg Famotidine (Pepcid) 40 mg PO HS [facility] Last Admin: 06/27/17 22:00 Dose: 40 mg Heparin Sodium (Porcine) (Heparin) 5,000 units SC Q12 [facility] PRN Reason: Protocol Last Admin: 06/28/17 09:21 Dose: 5,000 units Insulin Human Lispro (Humalog Low) 0 units SC ACHS [facility] PRN Reason: Protocol Last Admin: 06/28/17 16:36 Dose: 5 units Losartan Potassium (Cozaar) 100 mg PO DAILY [facility] Last Admin: 06/28/17 09:24 Dose: 100 mg Metformin HCl (Glucophage) 500 mg PO DAILY [facility] Last Admin: 06/28/17 09:21 Dose: 500 mg Multivitamins/Minerals (Therapeutic-M Tab) 1 tab PO 0800 [facility] Last Admin: 06/28/17 08:27 Dose: 1 tab Non-Formulary Medication (Naloxegol Oxalate [Movantik]) 1 tab PO DAILY [facility] Last Admin: 06/28/17 14:33 Dose: Not Given Oxycodone HCl (Oxycodone Immediate Release Tab) 30 mg PO Q6H PRN PRN Reason: Pain, severe (8-10) Last Admin: 06/28/17 05:51 Dose: 30 mg Polyethylene Glycol (Miralax) 17 gm PO BID [facility] Last Admin: 06/28/17 17:21 Dose: 17 gm Pregabalin (Lyrica) 75 mg PO TID [facility] Last Admin: 06/28/17 17:20 Dose: 75 mg Zolpidem Tartrate (Ambien) 5 mg PO HS PRN; Protocol PRN Reason: Insomnia Last Admin: 06/27/17 22:01 Dose: 5 mg - Labs Labs: 06/28/17 11:20 06/28/17 11:20 Assessment and Plan - Assessment and Plan (Free Text) Plan: Pt seen and examined. The note of the medical referral coordinator has been reviewed. Labs and medications reviewed. Pt waiting to go to rehab, acute. She has been accepted to [facility]. No UTI clinically. Pain is controlled. Fleet and Lactulose for constipation.
[2017-06-28 11:23] LABS: HEMOGLOBIN 11.8 g/dL (12.0-16.0); MEAN CELL VOLUME 87.8 fl (80.0-105.0); MEAN CORPUSCULAR HEMOGLOBIN 28.9 pg (25.0-35.0); MEAN CORPUSCULAR HGB CONC 32.9 g/dl (31.0-37.0); MEAN PLATELET VOLUME 9.2 fl (7.0-11.0); RBC 4.09 10^6/uL (3.5-6.1); RED CELL DISTRIBUTION WIDTH 13.1 % (11.5-14.5)
[2017-06-28 11:34] LABS: ALB/GLOB RATIO 1.5 (1.1-1.8); ALBUMIN 3.9 g/dL (3.0-4.8); ALT/SGPT 32 U/L (7-56); AST/SGOT 21 U/L (14-36); BLOOD UREA NITROGEN 14 mg/dL (7-21); CALCIUM 9.5 mg/dL (8.4-10.5); GFR AFRICAN-AMERICAN > 60; GFR NON-AFRICAN AMERICAN > 60
--- NOTE | 2017-06-28 12:16 | CARD ---
APPROVED REPORT EXAM: Two-dimensional and M-mode echocardiogram with Doppler and color Doppler. INDICATION CVA/TIA 2D DIMENSIONS Left Atrium (2D)3.3 (1.6-4.0cm)IVSd1.1 (0.7-1.1cm) LVDd3.4 (3.9-5.9cm)PWd0.8 (0.7-1.1cm) LVDs2.4 (2.5-4.0cm)FS (%) 29.2 % LVEF (%)57.1 (>50%) M-Mode DIMENSIONS Aortic Root2.40 (2.2-3.7cm)Aortic Cusp Exc.1.30 (1.5-2.0cm) Aortic Valve AoV Peak Jcppkeem402.0cm/Nery Peak GR.6mmHg Mitral Valve MV E Ovzlvfoi55.3cm/sMV A Wniroxbw98.7cm/sE/A ratio0.8 TDI E/Lateral E'0.0E/Medial E'0.0 Tricuspid Valve TR Peak [id number]/sRAP [id number] Peak Gr.21mmHg [id number] LEFT VENTRICLE The left ventricle is normal size. There is normal left ventricular wall thickness. The left ventricular function is normal. The left ventricular ejection fraction is within the normal range. There is normal LV segmental wall motion. RIGHT VENTRICLE The right ventricle is normal size. The right ventricular systolic function is normal. ATRIA The left atrium size is normal. The right atrium size is normal. The interatrial septum is intact with no evidence for an atrial septal defect. AORTIC VALVE The aortic valve is normal in structure. No aortic regurgitation is present. There is no aortic valvular stenosis. MITRAL VALVE The mitral valve is normal in structure. There is no mitral valve regurgitation noted. TRICUSPID VALVE The tricuspid valve is normal in structure. There is mild tricuspid regurgitation. PULMONIC VALVE The pulmonary valve is normal in structure. GREAT VESSELS The aortic root is normal in size. The IVC is normal in size and collapses >50% with inspiration. PERICARDIAL EFFUSION There is no pleural effusion. There is no pericardial effusion. <Conclusion> Normal chamber size. Normal LV systolic function. Mild TR.
[2017-06-28] MEDS: NALOXEGOL OXALATE PO SCH (14:33)
[2017-06-28 20:11] VITALS: BP 105/64; PULSE 74; TEMP 98.3; O2SAT 93
--- NOTE | 2017-06-29 06:42 | CP.PCM.DIS ---
<SonyaCeline shelley - Last Filed: 06/29/17 07:51> Provider - Provider Date of Admission: 06/26/17 12:51 Attending physician: Nakul Perez MD Consults: Neuro: Dr. Figueroa. Ortho: Dr. Love Time Spent in preparation of Discharge (in minutes): 35 Hospital Course - Lab Results Lab Results: Most Recent Lab Values WBC 11.0 10^3/ul (4.5-11.0) 06/28/17 11:20 RBC 4.09 10^6/uL (3.5-6.1) 06/28/17 11:20 Hgb 11.8 g/dL (12.0-16.0) L 06/28/17 11:20 Hct 35.9 % (36.0-48.0) L 06/28/17 11:20 MCV 87.8 fl (80.0-105.0) 06/28/17 11:20 MCH 28.9 pg (25.0-35.0) 06/28/17 11:20 MCHC 32.9 g/dl (31.0-37.0) 06/28/17 11:20 RDW 13.1 % (11.5-14.5) 06/28/17 11:20 Plt Count 365 10^3/uL (120.0-450.0) 06/28/17 11:20 MPV 9.2 fl (7.0-11.0) 06/28/17 11:20 Gran % 81.6 % (50.0-68.0) H 06/26/17 10:10 Lymph % (Auto) 13.3 % (22.0-35.0) L 06/26/17 10:10 [place] % (Auto) 4.1 % (1.0-6.0) 06/26/17 10:10 Eos % (Auto) 0.8 % (1.5-5.0) L 06/26/17 10:10 Baso % (Auto) 0.2 % (0.0-3.0) 06/26/17 10:10 Gran # 8.05 (1.4-6.5) H 06/26/17 10:10 Lymph # (Auto) 1.3 (1.2-3.4) 06/26/17 10:10 [place] # (Auto) 0.4 (0.1-0.6) 06/26/17 10:10 Eos # (Auto) 0.1 (0.0-0.7) 06/26/17 10:10 Baso # (Auto) 0.02 K/mm3 (0.0-2.0) 06/26/17 10:10 Sodium 140 mmol/L (132-148) 06/28/17 11:20 Potassium 3.9 mmol/L (3.6-5.0) 06/28/17 11:20 Chloride 104 mmol/L (98-107) 06/28/17 11:20 Carbon Dioxide 25 mmol/L (21-33) 06/28/17 11:20 Anion Gap 14 (10-20) 06/28/17 11:20 BUN 14 mg/dL (7-21) 06/28/17 11:20 Creatinine 0.8 mg/dl (0.7-1.2) 06/28/17 11:20 Est GFR ( Amer) > 60 06/28/17 11:20 Est GFR (Non-Af Amer) > 60 06/28/17 11:20 POC Glucose (mg/dL) 98 mg/dL (65-110) 06/28/17 21:15 Random Glucose 102 mg/dL (70-110) 06/28/17 11:20 Calcium 9.5 mg/dL (8.4-10.5) 06/28/17 11:20 Total Bilirubin 0.3 mg/dL (0.2-1.3) 06/28/17 11:20 AST 21 U/L (14-36) 06/28/17 11:20 ALT 32 U/L (7-56) 06/28/17 11:20 Alkaline Phosphatase 48 U/L (38-126) 06/28/17 11:20 Lactate Dehydrogenase 335 U/L (333-699) 06/26/17 10:10 Total Creatine Kinase 30 U/L (35-230) L 06/26/17 10:10 Troponin I < 0.01 ng/mL 06/26/17 10:10 Total Protein 6.5 g/dL (5.8-8.3) 06/28/17 11:20 Albumin 3.9 g/dL (3.0-4.8) 06/28/17 11:20 Globulin 2.6 gm/dL 06/28/17 11:20 Albumin/Globulin Ratio 1.5 (1.1-1.8) 06/28/17 11:20 Triglycerides 153 mg/dL (35-160) 06/27/17 07:00 Cholesterol 137 mg/dL (130-200) 06/27/17 07:00 LDL Cholesterol Direct 55 mg/dL (0-129) 06/27/17 07:00 HDL Cholesterol 46 mg/dL (29-60) 06/27/17 07:00 Urine Color Yellow (YELLOW) 06/26/17 10:55 Urine Appearance Clear (CLEAR) 06/26/17 10:55 Urine pH 6.0 (4.7-8.0) 06/26/17 10:55 Ur Specific [place] >= 1.030 (1.005-1.035) 06/26/17 10:55 Urine Protein 30 mg/dL (<30 mg/dL) H 06/26/17 10:55 Urine Glucose (UA) Negative mg/dL (NEGATIVE) 06/26/17 10:55 Urine Ketones >=80 mg/dL (NEGATIVE) 06/26/17 10:55 Urine Blood Negative (NEGATIVE) 06/26/17 10:55 Urine Nitrate Negative (NEGATIVE) 06/26/17 10:55 Urine Bilirubin Negative (NEGATIVE) 06/26/17 10:55 Urine Urobilinogen 0.2 E.U./dL (<1 E.U./dL) 06/26/17 10:55 Ur Leukocyte Esterase Negative Traci/uL (NEGATIVE) 06/26/17 10:55 Urine RBC 0 - 2 /hpf (0-2) 06/26/17 10:55 Urine WBC 0 - 2 /hpf (0-6) 06/26/17 10:55 Ur Epithelial Cells Many /hpf (0-5) 06/26/17 10:55 Urine Bacteria Mod (NEG) 06/26/17 10:55 - Hospital Course Hospital Course: This is a 62yo female with past medical history of HTN, NIDDM, osteoarthritis, chronic pain on opiates, anxiety/depression admitted for weakness in her legs and trouble with ambulation. CT head was done which did not show acute abnormalities. MRI of brain showed subacute infarcts in R cerebellar, R posterior medullary region with chronic lacunar infarcts. Neurology was consulted. Echo showed EF of 57% with mild TR. Carotid doppler showed 20-39% stenosis bilaterally. It was recommended patient continue ASA 81mg daily as well as start Lipitor 40mg daily. Patient was evaluated by physical therapy and recommended acute rehab. Patient was also evaluated by ortho for her leg pain and also recommended physical therapy. During her stay, patient remained stable. She had some constipation that was treated with 2 enemas and lactulose. A francois was placed due to urinary retention, most likely secondary to constipation. Otherwise, she has been stable. Patient was discharged to acute rehab. Patient verbalized and agreed with discharge plan. - Date & Time of H&P Date of H&P: 06/27/17 Time of H&P: 09:00 Discharge Exam - Head Exam Head Exam: ATRAUMATIC, NORMAL INSPECTION, NORMOCEPHALIC - Eye Exam Eye Exam: Normal appearance, PERRL Pupil Exam: NORMAL ACCOMODATION, PERRL - Respiratory Exam Respiratory Exam: Clear to PA & Lateral, NORMAL BREATHING PATTERN, UNREMARKABLE. absent: Rales, Rhonchi, Wheezes - Cardiovascular Exam Cardiovascular Exam: REGULAR RHYTHM, +S1, +S2. absent: Gallop, Rubs, Systolic Murmur - GI/Abdominal Exam GI & Abdominal Exam: Distended, Normal Bowel Sounds, Soft, Unremarkable. absent : Mass, Rebound, Rigid, Tenderness - Extremities Exam Extremities exam: normal inspection - Neurological Exam Neurological exam: Alert, CN II-XII Intact, Oriented x3 Additional comments: some ataxia - Psychiatric Exam Psychiatric exam: Normal Affect, Normal Mood - Skin Skin Exam: Dry, Warm Discharge Plan - Follow Up Plan Condition: STABLE Disposition: REHAB FACILITY/REHAB UNIT Instructions: Stroke (DC), Generalized Weakness (DC), Risk Factors for Stroke Additional Instructions: REPORT ANY PAIN, DISCOMFORT, NUMBNESS, TINGLING TO STAFF. MD TO FOLLOW IN REHAB. <Nakul Perez - Last Filed: 06/29/17 21:49> Provider - Provider Date of Admission: 06/26/17 12:51 Attending physician: Nakul Perez MD Hospital Course - Lab Results Lab Results: Most Recent Lab Values WBC 11.0 10^3/ul (4.5-11.0) 06/28/17 11:20 RBC 4.09 10^6/uL (3.5-6.1) 06/28/17 11:20 Hgb 11.8 g/dL (12.0-16.0) L 06/28/17 11:20 Hct 35.9 % (36.0-48.0) L 06/28/17 11:20 MCV 87.8 fl (80.0-105.0) 06/28/17 11:20 MCH 28.9 pg (25.0-35.0) 06/28/17 11:20 MCHC 32.9 g/dl (31.0-37.0) 06/28/17 11:20 RDW 13.1 % (11.5-14.5) 06/28/17 11:20 Plt Count 365 10^3/uL (120.0-450.0) 06/28/17 11:20 MPV 9.2 fl (7.0-11.0) 06/28/17 11:20 Gran % 81.6 % (50.0-68.0) H 06/26/17 10:10 Lymph % (Auto) 13.3 % (22.0-35.0) L 06/26/17 10:10 [place] % (Auto) 4.1 % (1.0-6.0) 06/26/17 10:10 Eos % (Auto) 0.8 % (1.5-5.0) L 06/26/17 10:10 Baso % (Auto) 0.2 % (0.0-3.0) 06/26/17 10:10 Gran # 8.05 (1.4-6.5) H 06/26/17 10:10 Lymph # (Auto) 1.3 (1.2-3.4) 06/26/17 10:10 [place] # (Auto) 0.4 (0.1-0.6) 06/26/17 10:10 Eos # (Auto) 0.1 (0.0-0.7) 06/26/17 10:10 Baso # (Auto) 0.02 K/mm3 (0.0-2.0) 06/26/17 10:10 Sodium 140 mmol/L (132-148) 06/28/17 11:20 Potassium 3.9 mmol/L (3.6-5.0) 06/28/17 11:20 Chloride 104 mmol/L (98-107) 06/28/17 11:20 Carbon Dioxide 25 mmol/L (21-33) 06/28/17 11:20 Anion Gap 14 (10-20) 06/28/17 11:20 BUN 14 mg/dL (7-21) 06/28/17 11:20 Creatinine 0.8 mg/dl (0.7-1.2) 06/28/17 11:20 Est GFR ( Amer) > 60 06/28/17 11:20 Est GFR (Non-Af Amer) > 60 06/28/17 11:20 POC Glucose (mg/dL) 98 mg/dL (65-110) 06/28/17 21:15 Random Glucose 102 mg/dL (70-110) 06/28/17 11:20 Calcium 9.5 mg/dL (8.4-10.5) 06/28/17 11:20 Total Bilirubin 0.3 mg/dL (0.2-1.3) 06/28/17 11:20 AST 21 U/L (14-36) 06/28/17 11:20 ALT 32 U/L (7-56) 06/28/17 11:20 Alkaline Phosphatase 48 U/L (38-126) 06/28/17 11:20 Lactate Dehydrogenase 335 U/L (333-699) 06/26/17 10:10 Total Creatine Kinase 30 U/L (35-230) L 06/26/17 10:10 Troponin I < 0.01 ng/mL 06/26/17 10:10 Total Protein 6.5 g/dL (5.8-8.3) 06/28/17 11:20 Albumin 3.9 g/dL (3.0-4.8) 06/28/17 11:20 Globulin 2.6 gm/dL 06/28/17 11:20 Albumin/Globulin Ratio 1.5 (1.1-1.8) 06/28/17 11:20 Triglycerides 153 mg/dL (35-160) 06/27/17 07:00 Cholesterol 137 mg/dL (130-200) 06/27/17 07:00 LDL Cholesterol Direct 55 mg/dL (0-129) 06/27/17 07:00 HDL Cholesterol 46 mg/dL (29-60) 06/27/17 07:00 Urine Color Yellow (YELLOW) 06/26/17 10:55 Urine Appearance Clear (CLEAR) 06/26/17 10:55 Urine pH 6.0 (4.7-8.0) 06/26/17 10:55 Ur Specific [place] >= 1.030 (1.005-1.035) 06/26/17 10:55 Urine Protein 30 mg/dL (<30 mg/dL) H 06/26/17 10:55 Urine Glucose (UA) Negative mg/dL (NEGATIVE) 06/26/17 10:55 Urine Ketones >=80 mg/dL (NEGATIVE) 06/26/17 10:55 Urine Blood Negative (NEGATIVE) 06/26/17 10:55 Urine Nitrate Negative (NEGATIVE) 06/26/17 10:55 Urine Bilirubin Negative (NEGATIVE) 06/26/17 10:55 Urine Urobilinogen 0.2 E.U./dL (<1 E.U./dL) 06/26/17 10:55 Ur Leukocyte Esterase Negative Traci/uL (NEGATIVE) 06/26/17 10:55 Urine RBC 0 - 2 /hpf (0-2) 06/26/17 10:55 Urine WBC 0 - 2 /hpf (0-6) 06/26/17 10:55 Ur Epithelial Cells Many /hpf (0-5) 06/26/17 10:55 Urine Bacteria Mod (NEG) 06/26/17 10:55 - Hospital Course Hospital Course: Pt seen and examined. The note of the medical affairs director has been reviewed and I agree with it. Pt going to Acute rehab. Will need continued PT. She will be on ASA and Lipitor for the CVA.
== END 2017-06-28 22:10 | DRG 74 ==
LOC: ED 09:10 → ERH 12:51 → 3RNO 15:12
PROVIDERS: ADMIT Internal Medicine Nephrology; ATTEND Internal Medicine Nephrology
PROC: 0T9B70Z Drainage of Bladder with Drainage Device, Via Natural or Artificial Opening (ICD-10-PCS; principal; 2017-06-28)
DX: E11.42 Type 2 diabetes mellitus with diabetic polyneuropathy (principal); I10 Essential (primary) hypertension; E78.5 Hyperlipidemia, unspecified; M19.011 Primary osteoarthritis, right shoulder; R42 Dizziness and giddiness; F41.9 Anxiety disorder, unspecified; F32.9 Major depressive disorder, single episode, unspecified; G89.29 Other chronic pain; K59.00 Constipation, unspecified; R33.9 Retention of urine, unspecified; I65.23 Occlusion and stenosis of bilateral carotid arteries; G24.9 Dystonia, unspecified; R26.81 Unsteadiness on feet; E11.610 Type 2 diabetes mellitus with diabetic neuropathic arthropathy; M14.672 Charcot's joint, left ankle and foot; Z79.891 Long term (current) use of opiate analgesic; Z79.82 Long term (current) use of aspirin; Z79.84 Long term (current) use of oral hypoglycemic drugs

== ENCOUNTER 2017-11-10 16:07 | Inpatient (IN) | payer MEDICARE ==
[2017-11-10] MEDS ORDERED: Sodium Chloride 0.9% 1,000 ML IV ONE (16:13)
[2017-11-10] MEDS ORDERED: Piperacill/Tazo 4.5gm in NS 4.5 GM/100 ML BAG IVPB STA (16:13)
[2017-11-10] MEDS ORDERED: Vancomycin 1gm in NS 250ml 1 GM/250 ML BAG IVPB STA (16:13)
--- NOTE | 2017-11-10 16:35 | ED PDOC ---
Arrival/HPI - General Chief Complaint: Altered Mental Status Time Seen by Provider: 11/10/17 16:07 - History of Present Illness Narrative History of Present Illness (Text): 11/10/17 16:32 62 yo female, with h/o HTN, DM, CVA (left sided weakness), Anxiety, Depresssion , Opiate Dependence, presents to the ED with who states since yesterday she hasn't been herself and not talking. EMS arrived where they state that Visiting Nurse reported + fever, + tachycardia and 87%RA oxy sat. Patient is not communicating to provide any history. said she's been eating less and drinking less. She appears weak. There has been a cough. Unknown urinary symptoms. PMD: Dr. Perez Past Medical History - Provider Review Nursing Documentation Reviewed: Yes - Infectious Disease Hx of Infectious Diseases: None - Tetanus Immunization Tetanus Immunization: Unknown - Cardiac Hx Hypertension: Yes - Pulmonary Hx Respiratory Disorders: No - Neurological HX Cerebrovascular Accident: Yes (left sided) - HEENT Hx HEENT Disorder: No - Renal Hx Renal Disorder: No - Endocrine/Metabolic Hx Diabetes Mellitus Type 2: Yes - Hematological/Oncological Hx Blood Transfusions: No - Integumentary Hx Dermatological Disorder: Yes Other/Comment: areas of red skin and red spider veins to ble, rednes both knees , scratch navas r ankle, callous 0.5cm round r great toe, pt refused to turn over to assess back due to c/o pain - Musculoskeletal/Rheumatological Hx Back Pain: Yes Hx Degenerative Joint Disease: Yes Other/Comment: Charcot Joint (Left Ankle) - Gastrointestinal Hx Gastrointestinal Disorders: Yes (constipation) - Psychiatric Hx Psychophysiologic Disorder: No Hx Substance Use: No - Surgical History Other/Comment: Left Shoulder Surgery (2012). Left Ankle - Anesthesia Hx Anesthesia Reactions: Yes Hx Malignant Hyperthermia: No Family/Social History - Physician Review Nursing Documentation Reviewed: Yes Family/Social History: Unknown Family HX Smoking Status: Never Smoked Hx Alcohol Use: Yes Hx Substance Use: No Allergies/Home Meds Allergies/Adverse Reactions: Allergies No Known Allergies Allergy (Verified 11/10/17 16:13) Home Medications: Home Meds Medication Instructions Recorded Confirmed Alprazolam [Xanax] 1 tab PO BID 09/25/16 06/26/17 Aspirin [Aspirin Chewable] 1 tab PO Q72 09/25/16 06/26/17 Citalopram Hydrobromide [Celexa] 1 tab PO DAILY 09/25/16 06/26/17 DULoxetine [Cymbalta] 1 cap PO BID 09/25/16 06/26/17 Multivitamin/Iron/Folic Acid 1 tab PO DAILY 09/25/16 06/26/17 [Centrum Adults Tablet] Naloxegol Oxalate [Movantik] 1 tab PO DAILY 09/25/16 06/26/17 Pregabalin [Lyrica] 1 cap PO TID 09/25/16 06/26/17 Valsartan [Diovan] 1 tab PO DAILY 09/25/16 06/26/17 metFORMIN [glucOPHAGE] 1 tab PO DAILY 09/25/16 06/26/17 Review of Systems - Review of Systems Systems not reviewed;Unavailable: Altered Mental Status Physical Exam Vital Signs Reviewed: Yes Vital Signs Temp Pulse Resp BP Pulse Ox 11/10/17 18:31 102.2 F H 11/10/17 18:20 103 H 18 120/60 96 11/10/17 16:31 102.5 F H 135 H 16 137/87 95 11/10/17 16:20 100 Temperature: Febrile Blood Pressure: Normal Pulse: Tachycardic Respiratory Rate: Tachypneic Appearance: Positive for: Ill-Appearing, Uncomfortable Pain Distress: None Mental Status: Positive for: Lethargic Finger Stick Blood Glucose: 113 - Systems Exam Head: Present: Atraumatic, Normocephalic Pupils: Present: PERRL. No: Pinpoint Extroacular Muscles: Present: EOMI Conjunctiva: Present: Normal Mouth: Present: Dry Nose (Internal): Present: Normal Inspection Neck: Present: Normal Range of Motion. No: Meningeal Signs Respiratory/Chest: Present: Good Air Exchange, Decreased Breath Sounds, Retracting, Rhonchi, Tachypneic. No: Respiratory Distress, Accessory Muscle Use , Wheezes Cardiovascular: Present: Normal S1, S2, Tachycardic. No: Murmurs Abdomen: No: Tenderness, Distention, Peritoneal Signs Back: Present: Normal Inspection Upper Extremity: Present: Normal Inspection, NORMAL PULSES. No: Cyanosis, Edema Lower Extremity: Present: Normal Inspection, NORMAL PULSES. No: Edema, Cyanosis Neurological: Present: GCS=15, CN II-XII Intact, Normal Sensory Function. No: Motor Func Grossly Intact (left sided weaknes, moves right arm) Skin: Present: Warm, Dry, Normal Color. No: Rashes Psychiatric: Present: Alert, Lethargic Medical Decision Making ED Course and Treatment: 11/10/17 16:40 62 yo female with fever, cough and altered mental status r/o severe sepsis; r/o CVA -- Labs -- CXR -- Finger Stick -- Vanco, Zosyn -- UA, Cx, Straight Cath -- Blood Cx -- IVF hydration Tylenol IL for fever. EKG: Sinus tachy at [address] elevations, TWI diffusely, this is a change from 06/26/17, flipped T's are new 11/10/17 17:05 Chest X-ray reviewed by radiologist, shows: No active disease. No significant interval change compared to the prior examination(s). 11/10/17 17:09 CT HEAD reviewed by radiologist, shows: No acute intracranial abnormalities. No significant findings to account for the clinical presentation. No significant interval change compared to the prior examination(s) 11/10/17 18:11 HR improved to 108. Blood pressure stable. 2nd liter of fluids almost complete. CT head reviewed. As per , mental status is much better after treatment already. 11/10/17 18:[address] Perez who will accept the case to Telemetry. Case discussed with Dr. Gant who will cover for Dr. Perez for the weekend. Consult placed for Dr. Payne for ID. - Critical Care Critical Care Minutes: 45 minutes - Lab Interpretations Lab Results: 11/10/17 16:20 11/10/17 16:20 Lab Results 11/10/17 17:00: Urine Color Light brown, Urine Appearance Cloudy, Urine pH 6.0, Ur Specific Power >= 1.030, Urine Protein 30 H, Urine Glucose (UA) Negative, Urine Ketones 15 H, Urine Blood Large H, Urine Nitrate Negative, Urine Bilirubin Negative, Urine Urobilinogen 0.2, Ur Leukocyte Esterase Small H, Urine RBC 25 - 30, Urine WBC 5 - 10, Ur Epithelial Cells 6 - 8, Other Crystals Tyrosine, Amorphous Sediment Few, Urine Bacteria Many, Coarse Granular Casts Trace H, Urine Other Uyeast 11/10/17 16:20: Sodium 141, Chloride 110 H, Potassium 3.7, Carbon Dioxide 19 L, Anion Gap 16, BUN 23 H, Creatinine 0.5 L, Est GFR ( Amer) > 60, Est GFR ( Non-Af Amer) > 60, Random Glucose 132 H, Calcium 10.1, Phosphorus 3.5, Magnesium 1.5 L, Total Bilirubin 0.8, AST 22, ALT 21, Alkaline Phosphatase 80, Troponin I < 0.01, Total Protein 7.7, Albumin 4.1, Globulin 3.6, Albumin/ Globulin Ratio 1.1 11/10/17 16:20: pO2 166 H, VBG pH 7.49 H, VBG pCO2 25.0 L, VBG HCO3 19.1 L, VBG Total CO2 19.9 L, VBG O2 Sat (Calc) 99.9 H, VBG Base Excess -2.6 L, VBG Potassium 3.7, Sodium 139.0, Chloride 111.0 H, Glucose 134 H, Lactate 1.0, FiO2 21.0, Venous Blood Potassium 3.7 11/10/17 16:20: PT 14.2 H, INR 1.24, APTT 31.8 11/10/17 16:20: WBC 26.4 H* D, RBC 3.97, Hgb 11.3 L, Hct 34.7 L, MCV 87.4, MCH 28.5, MCHC 32.6, RDW 14.5, Plt Count 527 H, MPV 10.4, Gran % 91.7 H, Lymph % ( Auto) 3.8 L, [place] % (Auto) 3.8, Eos % (Auto) 0.6 L, Baso % (Auto) 0.1, Gran # 24.21 H, Lymph # (Auto) 1.0 L, [place] # (Auto) 1.0 H, Eos # (Auto) 0.2, Baso # ( Auto) 0.03, Neutrophils % (Manual) 90 H, Band Neutrophils % 3 H, Lymphocytes % ( Manual) 5 L, Monocytes % (Manual) 2, Platelet Evaluation Normal, Hypochromasia Slight, Anisocytosis (manual) Slight - RAD Interpretation Radiology Orders: 11/10/17 16:13 CHEST PORTABLE [RAD] Stat 11/10/17 16:15 HEAD W/O CONTRAST [CT] Stat - Medication Orders Current Medication Orders: Sodium Chloride (Sodium Chloride 0.9%) 1,000 mls @ 999 mls/hr IV .Q1H1M STA Stop: 11/10/17 19:23 Discontinued Medications Acetaminophen (Tylenol 650 Mg Supp) 650 mg RC STAT STA Stop: 11/10/17 16:32 Last Admin: 11/10/17 16:39 Dose: 650 mg MAR Pain/Vitals Document 11/10/17 16:39 SF (Rec: 11/10/17 16:39 SF [id number]) Pain Reassessment Is This A Pain ReAssessment? Yes Sleep Is patient sleeping during reassessment? No Presence of Pain Presence of Pain Yes Pain Scale Used Pain Scale Used Numeric Sodium Chloride (Sodium Chloride 0.9%) 1,000 mls @ 2,000 mls/hr IV .Q30M ONE Stop: 11/10/17 16:42 Last Admin: 11/10/17 16:40 Dose: 2,000 mls/hr eMAR Start Stop Document 11/10/17 16:40 SF (Rec: 11/10/17 16:40 SF [id number]) Intravenous Solution Start Date 11/10/17 Start Time 16:40 End Date 11/10/17 End time 17:10 Total Infusion Time 30 Vancomycin HCl (Vancomycin 1gm) 1 gm in 250 mls @ 167 mls/hr IVPB STAT STA PRN Reason: Protocol Stop: 11/10/17 17:42 Last Admin: 11/10/17 17:39 Dose: 167 mls/hr eMAR Start Stop Document 11/10/17 17:39 SF (Rec: 11/10/17 17:39 SF [id number]) Intravenous Solution Start Date 11/10/17 Start Time 17:39 End Date 11/10/17 End time 19:15 Total Infusion Time 96 Piperacillin Sod/Tazobactam Sod (Zosyn 4.5 Gm In Ns 100ml) 4.5 gm in 100 mls @ 200 mls/hr IVPB STAT STA PRN Reason: Protocol Stop: 11/10/17 16:42 Last Admin: 11/10/17 16:39 Dose: 200 mls/hr eMAR Start Stop Document 11/10/17 16:39 SF (Rec: 11/10/17 16:40 SF [id number]) Intravenous Solution Start Date 11/10/17 Start Time 16:39 End Date 11/10/17 End time 17:10 Total Infusion Time 31 Sodium Chloride (Sodium Chloride 0.9%) 1,000 mls @ 999 mls/hr IV .Q1H1M STA Stop: 11/10/17 18:10 Last Admin: 11/10/17 17:40 Dose: 999 mls/hr eMAR Start Stop Document 11/10/17 17:40 SF (Rec: 11/10/17 17:40 SF [id number]) Intravenous Solution Start Date 11/10/17 Start Time 17:40 End Date 11/10/17 End time 18:41 Total Infusion Time 61 Disposition/Present on Arrival - Present on Arrival Any Indicators Present on Arrival: No History of DVT/PE: No History of Uncontrolled Diabetes: No Urinary Catheter: No History of Decub. Ulcer: No History Surgical Site Infection Following: None - Disposition Have Diagnosis and Disposition been Completed?: Yes Diagnosis: Severe sepsis Disposition: HOSPITALIZED Disposition Time: 18:20 Patient Plan: Admission Condition: GUARDED Discharge Instructions (ExitCare): Sepsis (ED) Forms: [employer] (L[place]uanian)
[2017-11-10 16:45] LABS: VENOUS BLOOD GAS BASE EXCESS -2.6 mmol/L (0.0-2.0); VENOUS BLOOD GAS PO2 166 mm/Hg (30-55); VENOUS BLOOD PH 7.49 (7.32-7.43)
[2017-11-10 16:46] LABS: BASO # 0.03 K/mm3 (0.0-2.0); BASO % 0.1 % (0.0-3.0); EOS # 0.2 (0.0-0.7); EOS % 0.6 % (1.5-5.0); GRAN # 24.21 (1.4-6.5); GRAN % 91.7 % (50.0-68.0); HEMOGLOBIN 11.3 g/dL (12.0-16.0); LYMPH % 3.8 % (22.0-35.0); MEAN CELL VOLUME 87.4 fl (80.0-105.0); MEAN CORPUSCULAR HEMOGLOBIN 28.5 pg (25.0-35.0); MEAN CORPUSCULAR HGB CONC 32.6 g/dl (31.0-37.0); MEAN PLATELET VOLUME 10.4 fl (7.0-11.0); MONO % 3.8 % (1.0-6.0); PLATELET COUNT 527 10^3/uL (120.0-450.0); RBC 3.97 10^6/uL (3.5-6.1); RED CELL DISTRIBUTION WIDTH 14.5 % (11.5-14.5)
[2017-11-10 16:49] LABS: WHITE BLOOD COUNT 26.4 10^3/ul (4.5-11.0)
[2017-11-10 16:56] LABS: PARTIAL THROMBOPLASTIN TIME 31.8 Seconds (25.1-36.5)
[2017-11-10 16:57] LABS: ALB/GLOB RATIO 1.1 (1.1-1.8); ALBUMIN 4.1 g/dL (3.0-4.8); ALT/SGPT 21 U/L (7-56); AST/SGOT 22 U/L (14-36); BLOOD UREA NITROGEN 23 mg/dL (7-21); CALCIUM 10.1 mg/dL (8.4-10.5); GFR NON-AFRICAN AMERICAN > 60
[2017-11-10 17:03] LABS: INR 1.24; PROTHROMBIN TIME 14.2 SECONDS (9.4-12.5)
[2017-11-10 17:09] LABS: TROPONIN I < 0.01 ng/mL
[2017-11-10 17:10] LABS: URINE BILIRUBIN NEGATIVE (NEGATIVE); URINE BLOOD LARGE (NEGATIVE); URINE GLUCOSE (UA) NEGATIVE (NEGATIVE); URINE LEUKOCYTE ESTERASE SMALL Leu/uL (NEGATIVE); URINE PROTEIN 30 mg/dL (<30 mg/dL); URINE UROBILINOGEN 0.2 E.U./dL (<1 E.U./dL)
[2017-11-10] MEDS ORDERED: Sodium Chloride 0.9% 1,000 ML IV STA ×3 (17:10→19:57)
[2017-11-10 17:11] LABS: URINE APPEARANCE CLOUDY (CLEAR); URINE COLOR LIGHT BROWN (YELLOW)
[2017-11-10 17:15] LABS: URINE BACTERIA MANY (NEG); URINE RBC 25 - 30 /hpf (0-2)
[2017-11-10 17:20] LABS: URINE OTHER CRYSTALS TYROSINE /hpf
[2017-11-10 17:21] LABS: URINE AMORPHOUS SEDIMENT FEW; URINE COARSE GRANULAR CAST TRACE /hpf (0-2)
[2017-11-10 17:25] LABS: ANISOCYTOSIS SLIGHT; BAND 3 % (0-2); HYPOCHROMIA SLIGHT; LYMPHOCYTE 5 % (22.0-35.0); MONOCYTE 2 % (1.0-6.0); NEUTROPHIL 90 % (50.0-70.0); PLATELET ESTIMATE NORMAL (NORMAL)
--- NOTE | 2017-11-10 17:44 | CT ---
Date of service: 11/10/2017 PROCEDURE: CT HEAD WITHOUT CONTRAST. HISTORY: Altered mental status. COMPARISON: 06/26/2017. CT head 06/26/2017 MRI brain TECHNIQUE: Axial computed tomography images were obtained through the head/brain without intravenous contrast. Supplemental Coronal and Sagittal projectections created and reviewed. Radiation dose: Total exam DLP = 975.42 mGy-cm. This CT exam was performed using one or more of the following dose reduction techniques: Automated exposure control, adjustment of the mA and/or kV according to patient size, and/or use of iterative reconstruction technique. FINDINGS: HEMORRHAGE: No intracranial hemorrhage. BRAIN: No mass effect or edema. Cortical and cerebellar atrophy, periventricular small vessel disease. VENTRICLES: Unremarkable. No hydrocephalus. CALVARIUM: Unremarkable. PARANASAL SINUSES: Unremarkable as visualized. No significant inflammatory changes. MASTOID AIR CELLS: Unremarkable as visualized. No inflammatory changes. OTHER FINDINGS: None. IMPRESSION: No acute intracranial abnormalities. No significant findings to account for the clinical presentation. No significant interval change compared to the prior examination(s).
--- NOTE | 2017-11-10 17:45 | RAD ---
Date of service: 11/10/2017 HISTORY: Sepsis Patient COMPARISON: 06/26/2017 FINDINGS: LUNGS: No active pulmonary disease. PLEURA: No significant pleural effusion identified, no pneumothorax apparent. CARDIOVASCULAR: No radiographic findings to suggest acute or significant cardiovascular disease. OSSEOUS STRUCTURES: No significant abnormalities. VISUALIZED UPPER ABDOMEN: Normal. OTHER FINDINGS: None. IMPRESSION: No active disease. No significant interval change compared to the prior examination(s).
--- NOTE | 2017-11-10 20:56 | CARD ---
APPROVED REPORT Date of service: 11/10/2017 EKG Measurement Heart [id number] <Conclusion> Sinus tachycardia with fusion complexes ST & T wave abnormality, consider inferior ischemia ST & T wave abnormality, consider anterolateral ischemia Abnormal ECG
[2017-11-10] MEDS: Vancomycin 1gm in NS 250ml 1 GM/250 ML BAG IVPB SCH (22:00)
[2017-11-10] MEDS: Insulin Reg-MEDIUM-Coverage SC SCH (22:13)
[2017-11-10] MEDS: Piperacillin/Tazobact 3.375 gm 100 ML IVPB SCH (23:03)
[2017-11-11 00:13] VITALS: BMI 23.4
[2017-11-11] MEDS: Piperacillin/Tazobact 3.375 gm 100 ML IVPB SCH ×4 (04:59→23:57)
[2017-11-11] MEDS: Insulin Reg-MEDIUM-Coverage SC SCH ×4 (08:14→22:22)
[2017-11-11 11:02] LABS: BASO # 0.04 K/mm3 (0.0-2.0); BASO % 0.2 % (0.0-3.0); EOS # 0.1 (0.0-0.7); EOS % 0.3 % (1.5-5.0); GRAN # 20.82 (1.4-6.5); GRAN % 93.7 % (50.0-68.0); HEMOGLOBIN 9.6 g/dL (12.0-16.0); LYMPH # 0.8 (1.2-3.4); LYMPH % 3.6 % (22.0-35.0); MEAN CELL VOLUME 89.7 fl (80.0-105.0); MEAN CORPUSCULAR HEMOGLOBIN 28.2 pg (25.0-35.0); MEAN CORPUSCULAR HGB CONC 31.4 g/dl (31.0-37.0); MEAN PLATELET VOLUME 10.5 fl (7.0-11.0); MONO # 0.5 (0.1-0.6); MONO % 2.2 % (1.0-6.0); RBC 3.41 10^6/uL (3.5-6.1); RED CELL DISTRIBUTION WIDTH 14.4 % (11.5-14.5); WHITE BLOOD COUNT 22.2 10^3/ul (4.5-11.0)
[2017-11-11] MEDS: Multivitamin With Minerals Tab PO SCH (11:02)
[2017-11-11] MEDS: Vancomycin 1gm in NS 250ml 1 GM/250 ML BAG IVPB SCH ×2 (11:02→21:16)
[2017-11-11] MEDS: POLYETHYLENE GLYCOL 3350 17 GM/Dose PACKET PO SCH ×2 (11:03→17:36)
--- NOTE | 2017-11-11 11:03 | CT ---
Date of service: 11/11/2017 PROCEDURE: CT Abdomen and Pelvis without intravenous contrast HISTORY: Sepsis, fever COMPARISON: None. TECHNIQUE: Without contrast.. Contrast dose: 0 Radiation dose: Total exam DLP = 406.20 mGy-cm. This CT exam was performed using one or more of the following dose reduction techniques: Automated exposure control, adjustment of the mA and/or kV according to patient size, and/or use of iterative reconstruction technique. FINDINGS: LOWER THORAX: Left lower lobe infiltrate. Possible pneumonia. LIVER: Unremarkable. No gross lesion or ductal dilatation. GALLBLADDER AND BILE DUCTS: Unremarkable. PANCREAS: Unremarkable. No gross lesion or ductal dilatation. SPLEEN: Unremarkable. ADRENALS: Unremarkable. No mass. KIDNEYS AND URETERS: Multiple nonobstructing left renal calculi. Largest calculus in left renal pelvis, approximately 9 mm. No hydronephrosis. No hydroureter. No ureteral calculus. No perinephric fluid. VASCULATURE: Unremarkable. No aortic aneurysm. BOWEL: Sigmoid diverticulosis. No evidence of diverticulitis. No other abnormal bowel loops. No bowel obstruction. APPENDIX: Not identified. No secondary findings. PERITONEUM: Unremarkable. No free fluid. No free air. LYMPH NODES: Unremarkable. No enlarged lymph nodes. BLADDER: Decompressed around Parikh catheter balloon REPRODUCTIVE: Normal uterus BONES: Grade 1-2 anterolisthesis at L4-5 without spondylolysis. Likely degenerative. Degenerative disc disease L4-5 and L5-S1. no acute fracture. OTHER FINDINGS: None. IMPRESSION: Multiple nonobstructing left renal calculi. Left lower lobe infiltrate, possible pneumonia. Sigmoid diverticulosis. No evidence of diverticulitis. No other significant abnormality.
[2017-11-11 11:24] LABS: ALB/GLOB RATIO 1.1 (1.1-1.8); ALBUMIN 3.6 g/dL (3.0-4.8); ALT/SGPT 34 U/L (7-56); AST/SGOT 24 U/L (14-36); BLOOD UREA NITROGEN 14 mg/dL (7-21); CALCIUM 9.6 mg/dL (8.4-10.5); GFR NON-AFRICAN AMERICAN > 60
[2017-11-11] MEDS: Dextrose 5%/0.9% NS 1,000 ML IV SCH (13:15)
--- NOTE | 2017-11-11 15:05 | CON ---
Copied To: Federico Figueroa MD Attending MD: Federico Figueroa MD DATE: 11/11/2017 NEUROLOGY CONSULTATION CHIEF COMPLAINT: Evaluation for AMS and rule out CVA. 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 She has p.o. intake and appears to be generalized weakness, and had a cough. She was found to have elevated leukocytosis of 26.4 and metabolic derangements with possible small urinary tract infection, on antibiotics. CAT scan of the head showed no acute intracranial abnormalities, old bilateral chronic infarcts. She is on aspirin and Plavix for stroke prevention as well as Lipitor for dyslipidemia. She is following commands, but seems very lethargic. PAST MEDICAL HISTORY: As above. SOCIAL HISTORY: No illicit drug use, smoking, EtOH abuse. REVIEW OF SYSTEMS: Fourteen-point review of systems is negative as per the HPI. FAMILY HISTORY: Noncontributory. ALLERGIES: NO KNOWN DRUG ALLERGIES. MEDICATIONS: Reviewed by nurses' reconciliation sheet. LABORATORY DATA: Sodium is 142, potassium 3.2, chloride 112, carbon dioxide 18, BUN of 14, creatinine 0.5, and random glucose 111. PHYSICAL EXAMINATION: VITAL SIGNS: Temperature 98.2, pulse rate 92, blood pressure 106/42, respiratory rate of 19, oxygen saturation 97% by room air. GENERAL: The patient is lethargic, in no acute distress. HEENT: Head is atraumatic, normocephalic. PERRLA. Extraocular muscles intact. NECK: Supple. No JVD, no adenopathy noted. LUNGS: Clear to auscultation. No adventitious sounds. HEART: S1, S2. Normal rate and rhythm. No murmurs, rubs, or gallops. ABDOMEN: Soft, nontender. Bowel sounds are present. EXTREMITIES: No clubbing. No cyanosis. Peripheral pulses are 2+ felt bilaterally. NEUROLOGIC: The patient is drowsy, follows simple commands, alert to person and place, but not to year at this time. Speech is fluent without any errors. No dysarthria noted. Cranial nerves II through XII intact. Motor: Moves all extremities equally. No pronator drift seen. Toes are downgoing bilaterally. Sensory: Decreased light touch and pinprick up to the calves bilaterally. Decreased vibration of the toes. DTRs are 2+ throughout except for 1 at both ankles and knees. Coordination: [id number] intact. No dysmetria noted. Gait is deferred for now. ASSESSMENT AND PLAN: This is a 62-year-old woman with history of hypertension; dyslipidemia; type 2 diabetes mellitus; diabetic peripheral neuropathy, on Lyrica and Cymbalta; history of anxiety and depression; history of prior infarcts in the right cerebellar, right and middle cerebral peduncle, right posterior medulla, right thalamus and aliyah, and right cerebellar peduncle in the past, which responsible for dysequilibrium and superimposed underlying sensory diabetic peripheral neuropathy. I was consulted for altered mental status. Her altered mental status is likely secondary to toxic metabolic or has underlying severe sepsis giving worsening mental status changes. Her CAT of the head showed no acute intracranial abnormalities, old cerebrovascular accidents in the past. At this time, she has possible underlying pneumoniae with some metabolic derangements and some underlying infection causing sepsis. At this time, we would recommend; 1. Aspirin 81, Plavix 75, and Lipitor 40 mg for stroke prevention. 2. Keep her blood sugars between 140 to 180. 3. Keep her blood pressure between 130s to 140s systolic and diastolic 70s to 80s. 4. Follow up with ID's recommendations in regards to underlying sepsis with certain antibiotics. 5. Continue with Lyrica and Cymbalta for underlying diabetic peripheral neuropathic relief. 6. We will get an MRI of the brain since she has risks of strokes and continue with current present medical management. Thank you for this consult. Federico Figueroa MD
--- NOTE | 2017-11-11 18:30 | CON ---
Copied To: Bruno Payne MD Attending MD: Bruno Payne MD DATE: 11/11/2017 LOCATION: The patient seen earlier in [facility], bed 2. CHIEF COMPLAINT: Questionable change in mental status unknown days of duration. HISTORY OF PRESENT ILLNESS: This is a 62-year-old female with history of diabetes mellitus, cerebrovascular accident, hypertension. The patient has a left-sided weakness, also has anxiety, depression, opiate dependence. Admitted with change in mental status. Patient is unable to communicate patient has not been eating well, drinking well. REVIEW OF SYSTEMS: A 12-point review of systems is performed. No diarrhea has been reported. There has been fevers reported. No chest pain. There is mild shortness of breath. No headaches reported. Again, the patient is a poor historian. There is no abdominal pain or constipation reported. PAST MEDICAL HISTORY: Significant for diabetes mellitus, hypertension, anxiety, depression, opiate dependence, cerebrovascular accident, left-sided weakness. PAST SURGICAL HISTORY: Significant for left shoulder surgery, left ankle surgery. ALLERGIES: THE PATIENT HAS NO KNOWN ALLERGIES. MEDICATIONS AT HOME: Include metformin, losartan, Lyrica, aspirin, insulin, and multivitamins. PHYSICAL EXAMINATION: GENERA: She is in bed. She appears chronically ill, cachectic, and difficulty communicating. VITAL SIGNS: Temperature is 103.4, heart rate of 107 and it was up to 130 in the emergency room, blood pressure is 140/80, and respiratory rate of 20. She is saturating at 97% on nasal cannula. HEENT: Unremarkable. NECK: Supple. LUNGS: Decreased breath sounds. HEART: Normal S1, S2. ABDOMEN: Soft, nontender. No rebound or guarding. No masses. SKIN: No breakdown. LABORATORY EXAMINATION: Reveals the patient's white count of 26,000 with hemoglobin of 11, platelets of 527, and 91% granulocytosis. Coagulation is noted. Chemistries reveal a BUN of 23, creatinine of 0.5. Glucose is 132. Magnesium was 1.5, procalcitonin 0.24. Urinalysis is noted with trace granular casts, 25 to 30 rbc's, 5 to 10 wbc's, large blood, 30 protein, cloudy urine. The patient had a CAT scan of the head that is negative and chest x-ray that is negative. Neurology consult is requested. ASSESSMENT AND PLAN: This is a 62-year-old female with diabetes, cerebrovascular accident, hypertension, anxiety, depression, with sepsis probably urine as the source. Negative chest x-ray. We will order a CAT scan of the abdomen and pelvis to rule out intraabdominal source and should consider MRI of the head and if no other sources, should consider spinal tap to determine the source of the fever with white count of 26,000. Pending blood culture, urine culture, CAT scan of the abdomen and pelvis. On vancomycin and Zosyn. We will follow closely with you. Overall prognosis poor. Bruno Payne MD
--- NOTE | 2017-11-11 21:25 | CP.PCM.HP ---
History of Present Illness - History of Present Illness History of Present Illness: Admitted with altered mental status. No fever cough. She had CVA before. Was communicative prior to change in mental status today. UA positive. WC elevated to 26k. CT chest abdomen pelvis showed left lower lobe pneumonia. Present on Admission - Present on Admission Any Indicators Present on Admission: No Review of Systems - Constitutional Constitutional: As Per HPI - EENT Eyes: absent: As Per HPI, Blind Spots, Blurred Vision, Change in Vision, Decreased Night Vision, Diplopia, Discharge, Dry Eye, Exophthalmos, Floaters, Irritation, Itchy Eyes, Loss of Peripheral Vision, Pain, Photophobia, Requires Corrective Lenses, Sees Flashes, Spots in Vision, Tunnel Vision, Other Visual Disturbances, Loss of Vision, Other Ears: absent: As Per HPI, Decreased Hearing, Ear Discharge, Ear Pain, Tinnitus, Abnormal Hearing, Disequilibrium, Dizziness, Other - Cardiovascular Cardiovascular: absent: As Per HPI, Acrocyanosis, Chest Pain, Chest Pain at Rest , Chest Pain with Activity, Claudication, Diaphoresis, Dyspnea, Dyspnea on Exertion, Edema, Irregular Heart Rhythm, Pain Radiating to Arm/Neck/Jaw, Leg Edema, Leg Ulcers, Lightheadedness, Orthopnea, Palpitations, Paroxysmal Nocturnal Dyspnea, Pedal Edema, Radiating Pain, Rapid Heart Rate, Slow Heart Rate, Syncope, Other - Respiratory Respiratory: absent: As Per HPI, Cough, Dyspnea, Hemoptysis, Dyspnea on Exertion , Wheezing, Snoring, Stridor, Pain on Inspiration, Chest Congestion, Excessive Mucous Production, Change in Mucous Color, Pain with Coughing, Other - Gastrointestinal Gastrointestinal: absent: As Per HPI, Abdominal Pain, Belching, Bloating, Change in Bowel Habits, Change in Stool Character, Coffee Ground Emesis, Constipation, Cramping, Diarrhea, Dyspepsia, Dysphagia, Early Satiety, Excessive Flatus, Fecal Incontinence, Heartburn, Hematemesis, Hematochezia, Loose Stools, Melena, Nausea, Odynophagia, Temesmus, Vomiting, Other - Genitourinary Genitourinary: As Per HPI - Musculoskeletal Musculoskeletal: As Per HPI - Neurological Neurological: absent: As Per HPI, Abnormal Gait, Abnormal Hearing, Abnormal Movements, Abnormal Speech, Behavioral Changes, Burning Sensations, Confusion, Convulsions, Disequilibrium, Dizziness, Numbness, Focal Weakness, Frequent Falls , Headaches, Lack of Coordination, Loss of Vision, Memory Loss, Paresthesias, Radicular Pain, Restless Legs, Sensory Deficit, Syncope, Tingling, Tremor, Vertigo, Weakness, Other Visual Disturbances, Other - Endocrine Endocrine: absent: As Per HPI, Change in Body Appearance, Change in Libido, Cold Intolorance, Deepening of Voice, Excessive Sweating, Fatigue, Flushing, Heat Intolorance, Increase in Ring/Shoe/Hat Size, Palpitations, Polydipsia, Polyphagia, Polyuria, Other - Hematologic/Lymphatic Hematologic: As Per HPI Past Patient History - Infectious Disease Hx of Infectious Diseases: None - Tetanus Immunizations Tetanus Immunization: Unknown - Past Social History Smoking Status: Never Smoked - CARDIAC Hx Cardiac Disorders: Yes Hx Hypertension: Yes Hx Peripheral Vascular Disease: Yes - PULMONARY Hx Respiratory Disorders: No - NEUROLOGICAL Hx Neurological Disorder: Yes HX Cerebrovascular Accident: Yes (L. sided) - HEENT Hx HEENT Problems: No - RENAL Hx Chronic Kidney Disease: No - ENDOCRINE/METABOLIC Hx Endocrine Disorders: Yes Hx Diabetes Mellitus Type 2: Yes - HEMATOLOGICAL/ONCOLOGICAL Hx Blood Transfusions: No - INTEGUMENTARY Hx Dermatological Problems: Yes Other/Comment: areas of red skin and red spider veins to ble, rednes both knees , scratch navas r ankle, callous 0.5cm round r great toe, pt refused to turn over to assess back due to c/o pain - MUSCULOSKELETAL/RHEUMATOLOGICAL Hx Falls: No - GASTROINTESTINAL Hx Gastrointestinal Disorders: Yes (constipation) - PSYCHIATRIC Hx Substance Use: No - SURGICAL HISTORY Other/Comment: Left Shoulder Surgery (2012). Left Ankle - ANESTHESIA Hx Anesthesia Reactions: Yes Hx Malignant Hyperthermia: No Meds Allergies/Adverse Reactions: Allergies Allergy/AdvReac Type Severity Reaction Status Date / Time No Known Allergies Allergy Verified 11/10/17 16:13 Physical Exam - Constitutional Appears: Cachectic, Chronically Ill - Head Exam Head Exam: ATRAUMATIC, NORMAL INSPECTION, NORMOCEPHALIC - Eye Exam Eye Exam: Normal appearance Pupil Exam: NORMAL ACCOMODATION - ENT Exam ENT Exam: Mucous Membranes Dry - Neck Exam Neck exam: Positive for: Normal Inspection - Respiratory Exam Respiratory Exam: Clear to Auscultation Bilateral, NORMAL BREATHING PATTERN - Cardiovascular Exam Cardiovascular Exam: REGULAR RHYTHM, +S1, +S2 - GI/Abdominal Exam GI & Abdominal Exam: Normal Bowel Sounds, Soft - Extremities Exam Extremities exam: Positive for: normal inspection - Back Exam Back exam: NORMAL INSPECTION - Neurological Exam Additional comments: not communicative, B/L legs in felxion. altered mental status. - Skin Skin Exam: Pallor Results - Vital Signs Recent Vital Signs: Last Vital Signs Temp 99 F 11/11/17 18:00 Pulse 87 11/11/17 18:00 Resp 19 11/11/17 18:00 BP 143/83 11/11/17 18:00 Pulse Ox 100 11/11/17 18:00 - Labs Result Diagrams: 11/11/17 10:50 11/11/17 10:50 Labs: Laboratory Results - last 24 hr 11/10/17 11/11/17 11/11/17 22:10 08:52 10:50 WBC 22.2 H RBC 3.41 L Hgb 9.6 L Hct 30.6 L MCV 89.7 MCH 28.2 MCHC 31.4 RDW 14.4 Plt Count 391 MPV 10.5 Gran % 93.7 H Lymph % (Auto) 3.6 L [place] % (Auto) 2.2 Eos % (Auto) 0.3 L Baso % (Auto) 0.2 Gran # 20.82 H Lymph # (Auto) 0.8 L [place] # (Auto) 0.5 Eos # (Auto) 0.1 Baso # (Auto) 0.04 Sodium Potassium Chloride Carbon Dioxide Anion Gap BUN Creatinine Est GFR ( Amer) Est GFR (Non-Af Amer) POC Glucose (mg/dL) 86 98 Random Glucose Calcium Total Bilirubin AST ALT Alkaline Phosphatase Total Protein Albumin Globulin Albumin/Globulin Ratio 11/11/17 11/11/17 11/11/17 10:50 11:28 16:27 WBC RBC Hgb Hct MCV MCH MCHC RDW Plt Count MPV Gran % Lymph % (Auto) [place] % (Auto) Eos % (Auto) Baso % (Auto) Gran # Lymph # (Auto) [place] # (Auto) Eos # (Auto) Baso # (Auto) Sodium 142 Potassium 3.2 L Chloride 112 H Carbon Dioxide 18 L Anion Gap 15 BUN 14 Creatinine 0.5 L Est GFR ( Amer) > 60 Est GFR (Non-Af Amer) > 60 POC Glucose (mg/dL) 105 119 H Random Glucose 111 H Calcium 9.6 Total Bilirubin 0.9 AST 24 ALT 34 Alkaline Phosphatase 74 Total Protein 6.8 Albumin 3.6 Globulin 3.3 Albumin/Globulin Ratio 1.1 Assessment & Plan - Assessment and Plan (Free Text) Assessment: 1. Sepsis : UTI- UA positive. left lower lobe PNA. ID consult Dr. Skinner requested. On Zosyn, vanco. received one dose in ER. Cultures sent. 2. CVA : old , may have new event. Neuro consult Dr. Figueroa. 3.IVF- D5NS at 60 cc/hr. 4. NPO, mental status altered. possible aspiration PNA. 5. DVT prophylaxis lovenox 30 mg SQ daily. - Date & Time Date: 11/10/17 Time: 18:00
--- NOTE | 2017-11-11 22:59 | PN ---
DATE: 11/11/2017 SUBJECTIVE: She is in mild respiratory distress, lot of secretion in the throat, curled up in the bed. Both legs in flexion. T-max was 103.4. Blood culture and urine culture pending. Currently on IV antibiotics, Zosyn and vancomycin. is at bedside. REVIEW OF SYSTEMS: Could not be obtained, she is mentally altered, history of prior stroke. PHYSICAL EXAMINATION: GENERAL: Mild respiratory distress. VITAL SIGNS: Temperature 98.2, respiratory rate 20 per minute, blood pressure 106/42, respiratory rate 19 per minute, oxygen saturation 98% on oxygen by nasal cannula. HEENT: Pallor positive. Cachexia. CHEST: Bilateral conducted sound. CARDIOVASCULAR: S1 and S2 normal. No murmur. No gallop. ABDOMEN: Soft, nontender. No hepatosplenomegaly. EXTREMITIES: Bilateral extremity in flexion, not moving the lower extremity. CENTRAL NERVOUS SYSTEM: Altered. LABORATORY DATA: White count 22,000, hemoglobin 9.6, hematocrit 30.6, platelets 391. Sodium 142, potassium 3.2, BUN 14, creatinine 0.5. LFTs within normal limits. Blood culture and urine culture pending. MEDICATIONS: Xanax 1 mg p.o. b.i.d., aspirin 81 mg every 72 hours, Lipitor 40 mg daily, Celexa 10 mg daily, Plavix 75 mg daily, Cymbalta 30 mg p.o. b.i.d., Pepcid 40 mg at bedtime, Cozaar 100 mg p.o. daily, Zosyn and vancomycin, Ambien 5 mg p.o. at bedtime. ASSESSMENT AND PLAN: 1. Sepsis, likely related to urinary tract infection and left lower lobe pneumonia, currently on two antibiotics, Zosyn and vancomycin. Consult with Dr. Payne appreciated. CT chest, abdomen and pelvis showed left lower lobe pneumonia, no acute pathology in abdomen. 2. History of old stroke, might have . Neurology consultation with Dr. Figueroa requested. MRI of the brain requested today. Start IV fluid, D5 normal saline 80 mL an hour. Poor p.o. intake, n.p.o. until swallow evaluation done. Ativan 0.5 mg every 6 hours p.r.n. for anxiety. Shea Gant MD [facility] # [id number]
[2017-11-12] MEDS: Piperacillin/Tazobact 3.375 gm 100 ML IVPB SCH ×4 (05:29→23:03)
[2017-11-12] MEDS: Dextrose 5%/0.9% NS 1,000 ML IV SCH ×2 (05:30→08:00)
--- NOTE | 2017-11-12 08:30 | PN ---
DATE: 11/12/2017 FOLLOWUP NOTE SUBJECTIVE: Fever curve has come down. T-max was 99 today, yesterday was 103. Blood pressures are still elevated to 160 systolic. Overall condition has improved slightly. She is currently on IV antibiotics for severe sepsis. Blood cultures are negative. Urine culture pending. REVIEW OF SYSTEMS: Could not be obtained, unresponsive. PHYSICAL EXAMINATION: VITAL SIGNS: Temperature T-max 99.2, heart rate 92 per minute, blood pressure 160/88, heart rate is 112, respiratory rate 20 per minute, oxygen saturation 98% on oxygen by nasal cannula. HEENT: Pallor positive. NECK: No lymphadenopathy. CHEST: Air entry present, bilateral. Bilateral conducting sounds present. CARDIOVASCULAR: S1, S2 normal. Tachycardia plus. ABDOMEN: Soft, nontender. No hepatosplenomegaly. EXTREMITY: Both extremity in flexion. Not moving lower extremities. PUMP RUNNER: Altered. No focal sensorimotor deficits. LABORATORY DATA: Today's labs pending. MEDICATIONS: All the oral medications on hold. Lovenox subcutaneous 30 mg subcutaneous daily, Pepcid, on Zosyn and vancomycin, Ativan 0.5 mg every 6 hours p.r.n. for agitation. ASSESSMENT AND PLAN: 1. Severe sepsis, likely urosepsis. She has left lower lobe pneumonia. Blood count, CBC, CMP ordered to be done stat today. We will continue D5 normal saline at 80 mL an hour. Ativan IV p.r.n. Oral medications to be on hold. Fever curve has come down. 2. History of stroke. Maybe have recent stroke again. MRI done yesterday has to be reviewed by radiologist, Dr. Figueroa. Consult appreciated. Shea Gant MD
[2017-11-12 09:23] LABS: BASO # 0.02 K/mm3 (0.0-2.0); BASO % 0.1 % (0.0-3.0); EOS # 0.4 (0.0-0.7); EOS % 2.5 % (1.5-5.0); GRAN # 15.1 (1.4-6.5); GRAN % 86.4 % (50.0-68.0); HEMOGLOBIN 9.8 g/dL (12.0-16.0); LYMPH # 1.2 (1.2-3.4); LYMPH % 6.7 % (22.0-35.0); MEAN CELL VOLUME 87.6 fl (80.0-105.0); MEAN CORPUSCULAR HEMOGLOBIN 28.2 pg (25.0-35.0); MEAN CORPUSCULAR HGB CONC 32.1 g/dl (31.0-37.0); MEAN PLATELET VOLUME 10.1 fl (7.0-11.0); MONO # 0.8 (0.1-0.6); MONO % 4.3 % (1.0-6.0); RBC 3.48 10^6/uL (3.5-6.1); WHITE BLOOD COUNT 17.5 10^3/ul (4.5-11.0)
[2017-11-12] MEDS: Multivitamin With Minerals Tab PO SCH (09:32)
[2017-11-12] MEDS: Insulin Reg-MEDIUM-Coverage SC SCH ×4 (09:32→23:03)
[2017-11-12] MEDS: POLYETHYLENE GLYCOL 3350 17 GM/Dose PACKET PO SCH ×2 (09:32→17:48)
[2017-11-12 09:33] LABS: BLOOD UREA NITROGEN 8 mg/dL (7-21); CALCIUM 9.4 mg/dL (8.4-10.5); GFR NON-AFRICAN AMERICAN > 60
[2017-11-12] MEDS: Vancomycin 1gm in NS 250ml 1 GM/250 ML BAG IVPB SCH ×2 (09:48→21:36)
[2017-11-12] MEDS: Enoxaparin 30 mg Syringe SC SCH (11:45)
--- NOTE | 2017-11-12 13:03 | PN ---
DATE: 11/12/2017 SUBJECTIVE: The patient is in bed, in no acute distress. She is weak. She had low-grade fevers. OBJECTIVE: VITAL SIGNS: On exam, her temperature is down from 103 down to 99, blood pressure is 160/80, respiratory rate of 20, heart rate of 99. HEENT: Examination is unremarkable. NECK: Supple. LUNGS: Have decreased breath sounds. HEART: Normal S1, S2. ABDOMEN: Soft, nontender. No rebound, no guarding, no masses.. DATA: Laboratory examination reveals a white count is down to 17,000 from 26,000, hemoglobin of 9. The patient had 3% bandemia and coagulation is noted. Chemistries reveal a BUN of 8, creatinine of 0.5. Urinalysis is noted. Microbiology reveals the Gram-positive cocci in the blood in one bottle and there is also gram-positive cocci in the urine. The pending. Review of orders reveals the patient to be on vancomycin and Zosyn. The patient had an MRI of the head. An echo is also pending. Repeat blood cultures are ordered. ASSESSMENT AND PLAN: This is a 62-year-old female who is admitted with history of diabetes, history of cerebrovascular accident, hypertension. The patient does have left-sided weakness, history of anxiety, depression, opiate dependence, change in mental status admitted with sepsis with gram-positive cocci bacteremia, must rule out endocarditis and an embolic phenomenon. The patient's MRI and echo was pending and identification of sensitivity, gram-positive cocci.. Dr. Federico Figueroa's input is greatly appreciated.. We are awaiting for the MRI of the head, result is gram-positive cocci and blood identification and sensitivity, echo results. The patient also has a left lower lobe infiltrate, possible pneumonia. We will continue the treatment with vancomycin and Zosyn. Also, an HIV test is pending because of her age of 62. Bruno Payne MD
--- NOTE | 2017-11-12 13:29 | MRI ---
Date of service: 11/11/2017 PROCEDURE: MRI BRAIN WITHOUT CONTRAST HISTORY: Altered mental status COMPARISON: Noncontrast head CT from 11/10/2017 and MRI brain without contrast from 06/26/2017 TECHNIQUE: Multiplanar, multisequence MR images of the brain were obtained without intravenous contrast enhancement. Examination is of suboptimal diagnostic quality due to motion degraded images. FINDINGS: HEMORRHAGE: None DWI: There is symmetric restricted diffusion in bilateral posterior limbs of internal capsule, lateral cerebral peduncles and in the dentate nuclei. BRAIN PARENCHYMA: There is a 3.2 x 3.2 cm round mass in the right thalamus with mild surrounding vasogenic edema. There is confluent T2/FLAIR hyperintensity in the periventricular white matter, right cerebral peduncle and bilateral dentate nuclei of the cerebellar hemispheres. VENTRICLES: There is mild age-related global parenchymal volume loss and proportionate enlargement of the ventricles and cortical sulci. No hydrocephalus. CRANIUM: Normal bone marrow signal pattern. ORBITS: Grossly unremarkable. PARANASAL SINUSES/MASTOIDS: Clear VASCULAR SYSTEM: Skull base flow voids intact. OTHER FINDINGS: None. IMPRESSION: Incompletely characterized 3.2 x 3.2 cm round mass in the right thalamus. Multifocal confluent periventricular white matter changes and abnormal signal in the right cerebral peduncle and dentate nuclei of the cerebellar hemispheres. Symmetric restricted diffusion in bilateral posterior limbs of internal capsules, lateral cerebral peduncles and in the dentate nuclei. Dedicated MRI of the brain without and with intravenous contrast is recommended for further evaluation.
--- NOTE | 2017-11-12 15:06 | PN ---
DATE: 11/12/2017 NEUROLOGY FOLLOWUP CHIEF COMPLAINT: Followup of altered mental status. SUBJECTIVE: The patient is seen and examined at bedside, is still lethargic and has sepsis, on IV antibiotics. CT of the abdomen showed possible left lower lobe infiltrate and multiple nonobstructive left renal calculi no evidence of diverticulitis though. She underwent an MRI of the brain, which showed incomplete characterized 3.2 x 3.2 cm round mass in the right thalamus, multifocal confluent periventricular white matters and abnormal signal in the right cerebellar peduncle and dentate nuclei of the cerebral hemispheres, symmetric restricted diffusion of the bilateral posterior limbs of internal capsule and lateral cerebellar peduncles and dentate nuclei. We will possibly need to do an MRI with and without contrast in order to further identify. 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 REVIEW OF SYSTEMS: Fourteen-point review of systems is negative as per the HPI. ALLERGIES: NO KNOWN DRUG ALLERGIES. FAMILY HISTORY: Noncontributory. MEDICATIONS: Reviewed by nurses' reconciliation sheet. LABORATORY DATA: Today, sodium is 141, potassium 3, chloride 112, carbon dioxide 19, BUN of 8, creatinine 0.5, random glucose 136. PHYSICAL EXAMINATION: VITAL SIGNS: Temperature 98.3, pulse rate 85, blood pressure 151/87, respiratory rate of 17, oxygen saturation 97% by room air. GENERAL: The patient is drowsy, in no acute distress. HEENT: Head is atraumatic, normocephalic. PERRLA. Extraocular muscles intact. NECK: Supple. No JVD, no adenopathy noted. LUNGS: Clear to auscultation. No adventitious sounds. HEART: S1, S2. Normal rate and rhythm. No murmurs, rubs or gallops. ABDOMEN: Soft, nontender, nondistended. Bowel sounds are present. EXTREMITIES: No clubbing. No cyanosis. Peripheral pulses are 2+ felt bilaterally. NEUROLOGIC: The patient is drowsy, follows simple commands. Alert and oriented to person and place, but not to year at this time. Speech is fluent without any errors. No dysarthria noted. Cranial nerves II through XII intact. Motor: Moves all extremities equally. No pronator drift seen. Toes are downgoing bilaterally. Sensory: Decreased light touch and pinprick up to the calves bilaterally. Decreased vibration of the toes. DTRs are 2+ throughout except for 1 at both ankles and knees. Coordination and gait are deferred for now. ASSESSMENT AND PLAN: This is a 62-year-old woman with history of hypertension; dyslipidemia; type 2 diabetes mellitus; diabetic peripheral neuropathy, on Lyrica and Cymbalta; history of anxiety and depression; history of prior infarcts in the right cerebellar, right and middle cerebral peduncle, right posterior medulla, right thalamus, aliyah and right cerebellar peduncle in the past, which is responsible for dysequilibrium and superimposed underlying sensory diabetic peripheral neuropathy. I was consulted for altered mental status, which is secondary to underlying toxic metabolic encephalopathy from underlying severe sepsis, for which she is on antibiotics. Her recent MRI of the brain showed incomplete characterized 3.2 x 3.2 cm round mass in right thalamus which is incidental in addition to multifocal confluent restricted diffusion in the bilateral posterior limbs of the internal capsule as well as lateral peduncles and dentate nuclei, which could be related to possibly prior infarcts versus blood pressure fluctuations. At this time, we will recommend; 1. Aspirin 81, Plavix 75, and Lipitor 40 mg p.o. daily for stroke prevention. 2. Keep her blood sugars between 140 to 180. 3. Keep her blood pressure between 130s to 140s systolic and diastolic 70s to 80s. 4. Follow up with ID's recommendations for underlying sepsis with certain antibiotics. 5. Neurosurgery evaluation for right mass in the thalamus and Oncology on board as well as Radiation Oncology. 6. We will get an MRI of the brain with and without contrast to assess for further evaluation of the incomplete round mass of right thalamus. At this time, continue current present medical management. Thank you for this consult. Federico Figueroa MD
[2017-11-12] MEDS ORDERED: Potassium Chloride 20 mEq ER Tab PO ONE (17:45)
[2017-11-12] MEDS: Potassium Chloride 40 MEQ in Dextrose 5%/0.9% NS 1,000 ML IV SCH (21:03)
[2017-11-13] MEDS: Piperacillin/Tazobact 3.375 gm 100 ML IVPB SCH ×4 (05:27→23:55)
[2017-11-13 07:15] LABS: HEMOGLOBIN 9.4 g/dL (12.0-16.0); MEAN CELL VOLUME 86.5 fl (80.0-105.0); MEAN CORPUSCULAR HEMOGLOBIN 27.5 pg (25.0-35.0); MEAN CORPUSCULAR HGB CONC 31.8 g/dl (31.0-37.0); RBC 3.42 10^6/uL (3.5-6.1); RED CELL DISTRIBUTION WIDTH 14.1 % (11.5-14.5)
[2017-11-13 07:42] LABS: ALBUMIN 3.2 g/dL (3.0-4.8); ALT/SGPT 27 U/L (7-56); AST/SGOT 30 U/L (14-36); BLOOD UREA NITROGEN 4 mg/dL (7-21); CALCIUM 9.2 mg/dL (8.4-10.5); GFR NON-AFRICAN AMERICAN > 60
[2017-11-13] MEDS: Insulin Reg-MEDIUM-Coverage SC SCH ×4 (08:06→21:50)
[2017-11-13] MEDS: Potassium Chloride 40 MEQ in Dextrose 5%/0.9% NS 1,000 ML IV SCH (08:51)
[2017-11-13] MEDS: Potassium Chloride 20 mEq 100 ML IV SCH ×2 (08:59→11:21)
[2017-11-13] MEDS: Enoxaparin 30 mg Syringe SC SCH (09:51)
[2017-11-13] MEDS: Vancomycin 1gm in NS 250ml 1 GM/250 ML BAG IVPB SCH ×2 (09:51→21:47)
--- NOTE | 2017-11-13 09:59 | CP.PCM.PN ---
Subjective - Date & Time of Evaluation Date of Evaluation: 11/13/17 Time of Evaluation: 09:55 - Subjective Subjective: Pt had MRI showing deep thalamic mass The MRI quality is poor, however this looks more like a met than glioma. Due to the location of the mass this is not surgically amenable given equipment at [facility] If biopsy is required need to transfer to a teaching hospital for this procedure to be done A search for primary malignancy should be undertaken as this may be metastatic lesion and neuro intervention would not be warranted. Objective - Vital Signs/Intake and Output Vital Signs (last 24 hours): Temp Pulse Resp BP Pulse Ox 98.6 F 84 18 150/80 95 11/13/17 06:00 11/13/17 06:00 11/13/17 06:00 11/13/17 06:00 11/13/17 06:00 Intake and Output: 11/13/17 11/13/17 06:59 18:59 Intake Total 1054 Output Total 1975 Balance -921 - Medications Medications: Current Medications Alprazolam (Xanax) 1 mg PO BID [facility] PRN Reason: Protocol Last Admin: 11/12/17 17:49 Dose: Not Given Aspirin (Aspirin Chewable) 81 mg PO Q72 [facility] Atorvastatin Calcium (Lipitor) 40 mg PO DIN [facility] Last Admin: 11/12/17 17:48 Dose: Not Given Citalopram Hydrobromide (Celexa) 10 mg PO DAILY [facility] Last Admin: 11/12/17 09:31 Dose: Not Given Clopidogrel Bisulfate (Plavix) 75 mg PO DAILY [facility] Last Admin: 11/12/17 09:32 Dose: Not Given Duloxetine HCl (Cymbalta) 30 mg PO BID [facility] Last Admin: 11/12/17 17:48 Dose: Not Given Enoxaparin Sodium (Lovenox) 30 mg SC DAILY [facility] PRN Reason: Protocol Last Admin: 11/12/17 11:45 Dose: 30 mg Famotidine (Pepcid) 40 mg PO HS [facility] Last Admin: 11/12/17 23:03 Dose: Not Given Vancomycin HCl (Vancomycin 1gm) 1 gm in 250 mls @ 167 mls/hr IVPB Q12H [facility] PRN Reason: Protocol Last Admin: 11/12/17 21:36 Dose: 167 mls/hr Piperacillin Sod/Tazobactam Sod (Zosyn 3.375 In Ns 100ml) 100 mls @ 200 mls/hr IVPB Q6 [facility] PRN Reason: Protocol Stop: 11/18/17 00:01 Last Admin: 11/13/17 05:27 Dose: 200 mls/hr Potassium Chloride 40 meq/ (Dextrose/Sodium Chloride) 1,020 mls @ 80 mls/hr IV .[id number] [facility] Last Admin: 11/13/17 08:51 Dose: Not Given Potassium Chloride (Potassium Chloride 20 Meq/100 Ml) 100 mls @ 50 mls/hr IV Q2H [facility] Stop: 11/13/17 12:29 Last Admin: 11/13/17 08:59 Dose: 50 mls/hr Insulin Human Regular (Humulin R Med) 0 units SC ACHS [facility] PRN Reason: Protocol Last Admin: 11/13/17 08:06 Dose: Not Given Lorazepam (Ativan) 0.5 mg IVP Q6H PRN; Protocol PRN Reason: Anxiety Last Admin: 11/11/17 22:32 Dose: 0.5 mg Losartan Potassium (Cozaar) 100 mg PO DAILY [facility] Last Admin: 11/12/17 09:31 Dose: Not Given Metformin HCl (Glucophage) 500 mg PO DAILY [facility] Last Admin: 11/12/17 09:32 Dose: Not Given Multivitamins/Minerals (Therapeutic-M Tab) 1 tab PO DAILY [facility] Last Admin: 11/12/17 09:32 Dose: Not Given Polyethylene Glycol (Miralax) 17 gm PO BID [facility] Last Admin: 11/12/17 17:48 Dose: Not Given Pregabalin (Lyrica) 75 mg PO TID [facility] Last Admin: 11/12/17 17:48 Dose: Not Given Zolpidem Tartrate (Ambien) 5 mg PO HS PRN; Protocol PRN Reason: Insomnia - Labs Labs: 11/13/17 06:30 11/13/17 06:30 PT 14.2 SECONDS (9.4-12.5) H 11/10/17 16:20 INR 1.24 11/10/17 16:20 APTT 31.8 Seconds (25.1-36.5) 11/10/17 16:20
[2017-11-13] MEDS: Multivitamin With Minerals Tab PO SCH (10:30)
[2017-11-13] MEDS: POLYETHYLENE GLYCOL 3350 17 GM/Dose PACKET PO SCH ×2 (10:30→17:47)
--- NOTE | 2017-11-13 10:37 | PN ---
DATE: 11/13/2017 SUBJECTIVE: The patient has no complaints. The patient is obtunded, not able to answer questions. PHYSICAL EXAMINATION: VITAL SIGNS: Temperature is 98.6, pulse of 84, blood pressure is 150/80, respirations 18. GENERAL: The patient is lying in bed, flat, comfortable. HEENT: No oral lesion. Anicteric sclerae. Moist mucosa. NECK: No JVD, adenopathy, or thyromegaly. CARDIOVASCULAR: S1 and S2, regular. No murmurs, rubs, or gallops. LUNGS: Clear to auscultation bilaterally. No wheeze, rales, or rhonchi. ABDOMEN: Bowel sounds are positive. Soft, nontender and nondistended. EXTREMITIES: No cyanosis, clubbing or edema. LABORATORY DATA: White count of 12, hemoglobin 9.4. Potassium is 2.7. ASSESSMENT: 1. Hypokalemia. 2. Delirium. 3. Sepsis secondary to urinary tract infection. 4. Right thalamic 3.2 x 3.2 cm mass, possible cerebrovascular accident versus tumor. 5. Hospital-acquired pneumonia. 6. Nephrolithiasis. PLAN: The patient is hypokalemic, will need IV potassium. We will also add IV potassium to the saline that patient is receiving. The patient is not able to take oral medications right now. She is on insulin sliding scale. The patient is on Lovenox for DVT prophylaxis. She is being followed by Dr. Figueroa, by Dr. Payne. We will get Neurosurgery to evaluate the patient. She does have some edema at the thalamic area as well. She had a recent stroke and was in rehab. She also was in another hospital for UTI. Did speak to the patient's and sister to give an update. The patient's sister is going to get me the old MRI report. Nakul Perez MD
--- NOTE | 2017-11-13 12:52 | CP.PCM.PN ---
Subjective - Date & Time of Evaluation Date of Evaluation: 11/13/17 Time of Evaluation: 10:45 - Subjective Subjective: No fevers, not in distress, no vomiting, no diarrhea. Objective - Vital Signs/Intake and Output Vital Signs (last 24 hours): Temp Pulse Resp BP Pulse Ox 98.5 F 83 18 160/85 H 95 11/13/17 12:00 11/13/17 12:00 11/13/17 12:00 11/13/17 12:00 11/13/17 06:00 Intake and Output: 11/13/17 11/13/17 06:59 18:59 Intake Total 1054 Output Total 1975 Balance -921 - Medications Medications: Current Medications Alprazolam (Xanax) 1 mg PO BID [facility] PRN Reason: Protocol Last Admin: 11/13/17 10:30 Dose: Not Given Aspirin (Aspirin Chewable) 81 mg PO Q72 [facility] Last Admin: 11/13/17 10:29 Dose: Not Given Atorvastatin Calcium (Lipitor) 40 mg PO DIN [facility] Last Admin: 11/12/17 17:48 Dose: Not Given Citalopram Hydrobromide (Celexa) 10 mg PO DAILY [facility] Last Admin: 11/13/17 10:29 Dose: Not Given Clopidogrel Bisulfate (Plavix) 75 mg PO DAILY [facility] Last Admin: 11/13/17 10:30 Dose: Not Given Duloxetine HCl (Cymbalta) 30 mg PO BID [facility] Last Admin: 11/13/17 10:29 Dose: Not Given Enoxaparin Sodium (Lovenox) 30 mg SC DAILY [facility] PRN Reason: Protocol Last Admin: 11/13/17 09:51 Dose: 30 mg Famotidine (Pepcid) 40 mg PO HS [facility] Last Admin: 11/12/17 23:03 Dose: Not Given Vancomycin HCl (Vancomycin 1gm) 1 gm in 250 mls @ 167 mls/hr IVPB Q12H [facility] PRN Reason: Protocol Last Admin: 11/13/17 09:51 Dose: 167 mls/hr Piperacillin Sod/Tazobactam Sod (Zosyn 3.375 In Ns 100ml) 100 mls @ 200 mls/hr IVPB Q6 [facility] PRN Reason: Protocol Stop: 11/18/17 00:01 Last Admin: 11/13/17 05:27 Dose: 200 mls/hr Potassium Chloride 40 meq/ (Dextrose/Sodium Chloride) 1,020 mls @ 80 mls/hr IV .[id number] [facility] Last Admin: 11/13/17 08:51 Dose: Not Given Insulin Human Regular (Humulin R Med) 0 units SC ACHS [facility] PRN Reason: Protocol Last Admin: 11/13/17 08:06 Dose: Not Given Lorazepam (Ativan) 0.5 mg IVP Q6H PRN; Protocol PRN Reason: Anxiety Last Admin: 11/13/17 09:50 Dose: 0.5 mg Losartan Potassium (Cozaar) 100 mg PO DAILY [facility] Last Admin: 11/13/17 10:29 Dose: Not Given Metformin HCl (Glucophage) 500 mg PO DAILY [facility] Last Admin: 11/13/17 10:29 Dose: Not Given Multivitamins/Minerals (Therapeutic-M Tab) 1 tab PO DAILY [facility] Last Admin: 11/13/17 10:30 Dose: Not Given Polyethylene Glycol (Miralax) 17 gm PO BID [facility] Last Admin: 11/13/17 10:30 Dose: Not Given Pregabalin (Lyrica) 75 mg PO TID [facility] Last Admin: 11/13/17 10:30 Dose: Not Given Zolpidem Tartrate (Ambien) 5 mg PO HS PRN; Protocol PRN Reason: Insomnia - Labs Labs: 11/13/17 06:30 11/13/17 06:30 PT 14.2 SECONDS (9.4-12.5) H 11/10/17 16:20 INR 1.24 11/10/17 16:20 APTT 31.8 Seconds (25.1-36.5) 11/10/17 16:20 - Constitutional Appears: Chronically Ill - Head Exam Head Exam: NORMAL INSPECTION - Respiratory Exam Respiratory Exam: Decreased Breath Sounds - Cardiovascular Exam Cardiovascular Exam: +S1, +S2 - GI/Abdominal Exam GI & Abdominal Exam: Soft. absent: Tenderness Assessment and Plan - Assessment and Plan (Free Text) Plan: Assessment Sepsis due to gram positive cocci bacteremia, source to be determined, R/O left lower lobe pneumonia R/O UTI with E. faecalis thalamic mass, etiology to be determined DM history of CVA anxiety depression opiate dependence Plan Continue Vancomycin and Zosyn day 3 pending repeat cultures, 2D echo follow up plans of Neurosurgery for the thalamic mass will monitor clinically
--- NOTE | 2017-11-13 13:05 | PN ---
DATE: 11/13/2017 NEUROLOGY FOLLOWUP CHIEF COMPLAINT: Followup for altered mental status. SUBJECTIVE: The patient has Enterococcus fecalis. She has urinary tract infection. She is on IV antibiotics and a possible left lower lobe pneumonia, being on antibiotics. ID is on board. I discussed the MRI results with the and we will repeat MRI of the brain with contrast to see if the right thalamic round mass is actually a mass. She has no acute events overnight. Following simple commands. PAST MEDICAL HISTORY: Type 2 diabetes mellitus; hypertension; diabetic peripheral neuropathy, on Lyrica and Cymbalta; history of anxiety and depression; history of right cerebellar and middle cerebral peduncles as well as posterior medulla infarction in addition to chronic infarction of the right thalamus and right cerebral peduncle from 06/27/2017. REVIEW OF SYSTEMS: Fourteen-point review of systems is negative except as per the HPI. ALLERGIES: NO KNOWN DRUG ALLERGIES. FAMILY HISTORY: Noncontributory. MEDICATIONS: Reviewed by nurses' reconciliation sheet. LABORATORY DATA: The sodium is 142, potassium 2.7, chloride of 113, carbon dioxide 20, BUN of 4, creatinine 0.5, random glucose 118. PHYSICAL EXAMINATION: GENERAL: The patient is lethargic, in no acute distress. HEENT: Atraumatic, normocephalic. PERRLA. Extraocular muscles intact. NECK: Supple. No JVD, no adenopathy noted. LUNGS: Clear to auscultation. No adventitious sounds. HEART: S1, S2. Normal rate and rhythm. No murmurs, rubs or gallops. ABDOMEN: Soft, nontender. Bowel sounds are present. EXTREMITIES: No clubbing. No cyanosis. Peripheral pulses 2+ felt bilaterally. NEUROLOGIC: The patient is drowsy and follows simple commands. Alert and oriented to person and place, not much to month and year. She has cognitive impairment from underlying multiple strokes. Speech is fluent without any errors. No dysarthria noted. Cranial nerves II through XII are intact. Motor exam: Left side is more weaker in terms of 4/5 when compared to the right. Toes are downgoing bilaterally. Sensory exam: Decreased light touch and pinprick up to the calves bilaterally. Decreased vibration of the toes. DTRs are 2+ throughout and 1 at both knees and absent at the ankles. Coordination has dysmetria of [id number] on the right and left, which likely represents her prior infarcts. Gait is deferred for now. ASSESSMENT AND PLAN: This is a 62-year-old woman with history of hypertension; dyslipidemia; type 2 diabetes mellitus; diabetic peripheral neuropathy, on Lyrica and Cymbalta; history of anxiety and depression; history of prior infarction of the right cerebellar, right middle cerebral peduncle, right posterior medulla, right thalamus, aliyah and right cerebral peduncle in the past, which was positive for disequilibrium and weakness. In addition, she has underlying diabetic sensorimotor peripheral neuropathy and was consulted initially with altered mental status, which is likely secondary to a toxic metabolic encephalopathy from underlying severe sepsis from Enterococcus fecalis and the urinary tract infection, underlying pneumonia. Her MRI of the brain without contrast showed an incomplete characterization of a 3.2 x 3.2 cm round mass in the right thalamus, which was incidental in addition to a multi confluent restricted diffusion of the bilateral posterior limbs of the internal capsule as well as the lateral peduncles and dentate nuclei, which could represent prior infarcts. At this time, I will recommend, 1. Aspirin 81 mg, Plavix 75 mg, Lipitor 40 mg for stroke prevention. 2. Keep her blood sugars between 140-180. 3. Keep her blood pressure between 130s-140s systolic and diastolic 70s-80s. 4. Continue with antibiotics for underlying sepsis. 5. Neurosurgery says right mass will need an MRI with contrast to delineate as well as possibly at another hospital to get a biopsy. At this time, we will get an MRI with contrast to assess for further evaluation for the mass of right thalamus and continue current present medical management. Case was discussed with at bedside. Thank you for this followup. Federico Figueroa MD
[2017-11-13] MEDS: Morphine 2 mg/ml ISec IVP PRN ×2 (13:49→20:30)
--- NOTE | 2017-11-13 23:34 | CON ---
DATE: 11/13/2017 HISTORY OF PRESENT ILLNESS: The patient was admitted with altered sensorium, new; aphasia and altered mental status. She had history of stroke previously. CT chest, abdomen and pelvis showed left lower lobe pneumonia. No acute abnormality in the abdomen. CT head was unremarkable. MRI of the brain showed right thalamic mass, 3.2 x 3.2 cm. Evaluated by Neurosurgery. Mass is deeper and is not accessible for resection. There is a question of metastatic lesion versus primary brain tumor. She also has gram-positive septicemia, bacteremia, being treated with IV antibiotics. REVIEW OF SYSTEMS: Remained altered, noncommunicative, not alert. Aphasia. No fever. PAST MEDICAL HISTORY: Hypertension, peripheral vascular disease, previous stroke, left-sided weakness, diabetes mellitus type 2. PAST SURGICAL HISTORY: None. ALLERGIES: NO KNOWN DRUG ALLERGIES. MEDICATIONS: Xanax 1 mg p.o. b.i.d., aspirin 81 mg daily, Lipitor 40 mg daily, Celexa 10 mg daily. All oral meds are on hold. DVT prophylaxis with Lovenox. On IV antibiotic, Zosyn, vancomycin. PHYSICAL EXAMINATION: GENERAL: Agitated in the bed, restless. VITAL SIGNS: Afebrile, temperature 98.2, heart rate 80 per minute, blood pressure 129/64, respiratory rate 18 per minute, oxygen saturation 95% on room air. Cachexia present. NECK: No lymphadenopathy. CHEST: Air entry present and equal, bilateral. Bilateral conducted sound present. CARDIOVASCULAR: S1, S2 normal. No murmur. No gallop. ABDOMEN: Soft, nontender. No hepatosplenomegaly. EXTREMITIES: No edema. Lower extremity in flexion. LABORATORY DATA: White count 12,000, hemoglobin 9.4, hematocrit 29.6, platelet 433. Sodium 143, potassium 2.7, BUN 4, creatinine 0.5. LFTs within normal limit. Magnesium 1.4 ASSESSMENT AND PLAN: Right thalamic mass, 3.2 x 3.2 cm; left lower lobe pneumonia; gram-positive sepsis; prior history of stroke; altered mental status. 1. 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 CT abdomen and pelvis did not show any evidence of primary cancer. We will do CAT scan of the chest without contrast. MRI of the brain with and without contrast is ordered for tomorrow for further delineation of the mass. Left lower infiltrate need to be evaluated to make sure there is no underlying lung mass. We will do the tumor marker, CA 19-9, CEA and CA 125. If there is no indication of primary tumor elsewhere in the body, we will consider palliative radiation to the brain. She has poor performance status because of the prior stroke. She will not be a candidate for aggressive treatment. Biopsy of the thalamic mass is not feasible because of the location. I will discuss with the tomorrow. We will continue to follow during hospitalization. Thank you, Dr. Perez for allowing us to participate in Ms. Spicer's care. Shea Gant MD
[2017-11-14] MEDS: Potassium Chloride 40 MEQ in Dextrose 5%/0.9% NS 1,000 ML IV SCH ×2 (02:54→09:15)
[2017-11-14] MEDS: Piperacillin/Tazobact 3.375 gm 100 ML IVPB SCH ×3 (06:01→17:43)
--- NOTE | 2017-11-14 06:16 | CP.PCM.PN ---
<Celine Stone - Last Filed: 11/14/17 12:23> Subjective - Date & Time of Evaluation Date of Evaluation: 11/14/17 Time of Evaluation: 07:00 - Subjective Subjective: Medicine Progress Note for Robe Taylor PGY3 Patient seen and examined at bedside. Overnight patient was agitated and received Ativan. This am, patient was lethargic, but arousable. ROS was limited. Patient denies pain, chest pain, shortness of breath, nausea/vomiting or diarrhea. Objective - Vital Signs/Intake and Output Vital Signs (last 24 hours): Temp Pulse Resp BP Pulse Ox 99.3 F 82 20 141/96 H 95 11/14/17 00:01 11/14/17 01:53 11/14/17 00:01 11/14/17 00:01 11/13/17 18:00 Intake and Output: 11/13/17 11/14/17 18:59 06:59 Intake Total 1370 Output Total 1500 Balance -130 - Medications Medications: Current Medications Alprazolam (Xanax) 1 mg PO BID [facility]; Protocol Last Admin: 11/13/17 17:47 Dose: Not Given Aspirin (Aspirin Chewable) 81 mg PO Q72 [facility] Last Admin: 11/13/17 10:29 Dose: Not Given Atorvastatin Calcium (Lipitor) 40 mg PO DIN [facility] Last Admin: 11/13/17 16:20 Dose: Not Given Citalopram Hydrobromide (Celexa) 10 mg PO DAILY [facility] Last Admin: 11/13/17 10:29 Dose: Not Given Clopidogrel Bisulfate (Plavix) 75 mg PO DAILY [facility] Last Admin: 11/13/17 10:30 Dose: Not Given Duloxetine HCl (Cymbalta) 30 mg PO BID [facility] Last Admin: 11/13/17 17:47 Dose: Not Given Enoxaparin Sodium (Lovenox) 30 mg SC DAILY [facility]; Protocol Last Admin: 11/13/17 09:51 Dose: 30 mg Famotidine (Pepcid) 40 mg PO HS [facility] Last Admin: 11/13/17 21:51 Dose: Not Given Vancomycin HCl (Vancomycin 1gm) 1 gm in 250 mls @ 167 mls/hr IVPB Q12H [facility]; Protocol Last Admin: 11/13/17 21:47 Dose: 167 mls/hr Piperacillin Sod/Tazobactam Sod (Zosyn 3.375 In Ns 100ml) 100 mls @ 200 mls/hr IVPB Q6 [facility]; Protocol Stop: 11/18/17 00:01 Last Admin: 11/14/17 06:01 Dose: 200 mls/hr Potassium Chloride 40 meq/ (Dextrose/Sodium Chloride) 1,020 mls @ 80 mls/hr IV .[id number] [facility] Last Admin: 11/14/17 02:54 Dose: 80 mls/hr Insulin Human Regular (Humulin R Med) 0 units SC ACHS [facility]; Protocol Last Admin: 11/13/17 21:50 Dose: Not Given Lorazepam (Ativan) 0.5 mg IVP Q6H PRN; Protocol PRN Reason: Anxiety Last Admin: 11/14/17 00:28 Dose: 0.5 mg Losartan Potassium (Cozaar) 100 mg PO DAILY [facility] Last Admin: 11/13/17 10:29 Dose: Not Given Metformin HCl (Glucophage) 500 mg PO DAILY [facility] Last Admin: 11/13/17 10:29 Dose: Not Given Morphine Sulfate (Morphine) 2 mg IVP Q6H PRN PRN Reason: Pain, severe (8-10) Last Admin: 11/13/17 20:30 Dose: 2 mg Multivitamins/Minerals (Therapeutic-M Tab) 1 tab PO DAILY [facility] Last Admin: 11/13/17 10:30 Dose: Not Given Polyethylene Glycol (Miralax) 17 gm PO BID [facility] Last Admin: 11/13/17 17:47 Dose: Not Given Pregabalin (Lyrica) 75 mg PO TID [facility] Last Admin: 11/13/17 17:47 Dose: Not Given Zolpidem Tartrate (Ambien) 5 mg PO HS PRN; Protocol PRN Reason: Insomnia - Labs Labs: 11/13/17 06:30 11/13/17 06:30 PT 14.2 SECONDS (9.4-12.5) H 11/10/17 16:20 INR 1.24 11/10/17 16:20 APTT 31.8 Seconds (25.1-36.5) 11/10/17 16:20 - Constitutional Appears: No Acute Distress - Head Exam Head Exam: ATRAUMATIC, NORMAL INSPECTION, NORMOCEPHALIC - Eye Exam Eye Exam: PERRL Pupil Exam: PERRL - ENT Exam ENT Exam: Mucous Membranes Dry - Respiratory Exam Respiratory Exam: Clear to Ausculation Bilateral, NORMAL BREATHING PATTERN. absent: Decreased Breath Sounds, Rales, Rhonchi, Wheezes - Cardiovascular Exam Cardiovascular Exam: REGULAR RHYTHM, +S1, +S2. absent: Gallop, Rubs, Murmur - GI/Abdominal Exam GI & Abdominal Exam: Soft, Normal Bowel Sounds. absent: Tenderness, Mass, Rebound - Extremities Exam Extremities Exam: Normal Inspection. absent: Calf Tenderness, Pedal Edema - Neurological Exam Neurological Exam: CN II-XII Intact. absent: Awake - Skin Skin Exam: Dry, Warm Assessment and Plan - Assessment and Plan (Free Text) Assessment: This is a 62yo female with past medical history of HTN, NIDDM, CVA, HLD, de pression/anxiety, spinal stenosis, peripheral neuropathy who was admitted for 1. Sepsis - secondary to UTI and HCAP 2. Delirium 3. 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 CVA - previous records from [facility] reviewed. CT Head 09/05/17 showed chronic white matter changes without mass. MRI of brain 08/2017 showed multifocal signal abnormalities (b/l basal ganglia, L thalamus, L midbrain, R cerebellum) representing mixed subacute/chronic ischemia - MRA head/neck 08/2017 showed mild hypoplasia v. stenosis of A1 segment of R anterior cerebral a. but otherwise unremarkable - Bone scan 09/07/2017 showed degenerative changes without evidence of metastatic disease 4. Hypokalemia 5. Hypomagnesia Plan: Neurology on consult. MRI of brain pending. Neurosurgery recs appreciated. Patient failed swallow eval. Continue to keep NPO for now. Continue patient education and re-orientation. Ativan prn agitation. Labs and imaging reviewed. CT chest did not show any metastatic lesions. Oncology on consult. Patient did have bone scan in August 2017 which was negative for metastatic lesions. Will replace electrolytes. Patient is on IV fluids with additives. Patient is on insulin sliding scale. Continue Zosyn and Vanc for sepsis. ID is on consult. Continue GI and DVT prophylaxis. Case seen, discussed and reviewed with Dr. Perez. Robe Stone PGY3 <Nakul Perez - Last Filed: 11/14/17 19:18> Objective - Vital Signs/Intake and Output Vital Signs (last 24 hours): Temp Pulse Resp BP Pulse Ox 98 F 89 18 159/105 H 96 11/14/17 12:00 11/14/17 12:00 11/14/17 12:00 11/14/17 12:00 11/14/17 06:00 Intake and Output: 11/14/17 11/14/17 06:59 18:59 Intake Total 960 Output Total 700 Balance 260 - Medications Medications: Current Medications Alprazolam (Xanax) 1 mg PO BID [facility]; Protocol Last Admin: 11/14/17 17:20 Dose: Not Given Aspirin (Aspirin Chewable) 81 mg PO Q72 [facility] Last Admin: 11/13/17 10:29 Dose: Not Given Atorvastatin Calcium (Lipitor) 40 mg PO DIN [facility] Last Admin: 11/14/17 17:19 Dose: Not Given Citalopram Hydrobromide (Celexa) 10 mg PO DAILY [facility] Last Admin: 11/14/17 12:25 Dose: Not Given Clopidogrel Bisulfate (Plavix) 75 mg PO DAILY [facility] Last Admin: 11/14/17 12:27 Dose: Not Given Duloxetine HCl (Cymbalta) 30 mg PO BID [facility] Last Admin: 11/14/17 12:26 Dose: Not Given Enoxaparin Sodium (Lovenox) 30 mg SC DAILY [facility]; Protocol Last Admin: 11/14/17 10:00 Dose: 30 mg Famotidine (Pepcid) 40 mg PO HS [facility] Last Admin: 11/13/17 21:51 Dose: Not Given Vancomycin HCl (Vancomycin 1gm) 1 gm in 250 mls @ 167 mls/hr IVPB Q12H [facility]; Protocol Last Admin: 11/14/17 10:00 Dose: 167 mls/hr Piperacillin Sod/Tazobactam Sod (Zosyn 3.375 In Ns 100ml) 100 mls @ 200 mls/hr IVPB Q6 [facility]; Protocol Stop: 11/18/17 00:01 Last Admin: 11/14/17 17:43 Dose: 200 mls/hr Potassium Chloride 40 meq/ (Dextrose/Sodium Chloride) 1,020 mls @ 80 mls/hr IV .[id number] [facility] Last Admin: 11/14/17 09:15 Dose: 80 mls/hr Insulin Human Regular (Humulin R Med) 0 units SC ACHS [facility]; Protocol Last Admin: 11/14/17 17:18 Dose: Not Given Lorazepam (Ativan) 0.5 mg IVP Q6H PRN; Protocol PRN Reason: Anxiety Last Admin: 11/14/17 00:28 Dose: 0.5 mg Losartan Potassium (Cozaar) 100 mg PO DAILY [facility] Last Admin: 11/14/17 12:25 Dose: Not Given Metformin HCl (Glucophage) 500 mg PO DAILY [facility] Last Admin: 11/14/17 12:26 Dose: Not Given Morphine Sulfate (Morphine) 2 mg IVP Q6H PRN PRN Reason: Pain, severe (8-10) Last Admin: 11/14/17 17:44 Dose: 2 mg Multivitamins/Minerals (Therapeutic-M Tab) 1 tab PO DAILY [facility] Last Admin: 11/14/17 12:27 Dose: Not Given Polyethylene Glycol (Miralax) 17 gm PO BID [facility] Last Admin: 11/14/17 17:19 Dose: Not Given Pregabalin (Lyrica) 75 mg PO TID [facility] Last Admin: 11/14/17 17:19 Dose: Not Given Zolpidem Tartrate (Ambien) 5 mg PO HS PRN; Protocol PRN Reason: Insomnia - Labs Labs: 11/14/17 06:20 11/14/17 06:20 PT 14.2 SECONDS (9.4-12.5) H 11/10/17 16:20 INR 1.24 11/10/17 16:20 APTT 31.8 Seconds (25.1-36.5) 11/10/17 16:20 Assessment and Plan - Assessment and Plan (Free Text) Plan: Pt seen and examined. I have reviewed the note of the medical and scientific illustrator and agree with it. I have discussed the assessment and plan with the resident. I have reviewed the patient's labs and medications. Pt with sepsis. She is slowly improving. I spoke to the pt's . old records from [facility] mass reviewed and the MRI. No masses were seen in the thalamus. She is not able to take PO. She is on an ISS. MRI pending.
[2017-11-14 07:32] LABS: HEMOGLOBIN 9.4 g/dL (12.0-16.0); MEAN CELL VOLUME 87.6 fl (80.0-105.0); MEAN CORPUSCULAR HEMOGLOBIN 27.7 pg (25.0-35.0); MEAN CORPUSCULAR HGB CONC 31.6 g/dl (31.0-37.0); MEAN PLATELET VOLUME 9.8 fl (7.0-11.0); RBC 3.39 10^6/uL (3.5-6.1); RED CELL DISTRIBUTION WIDTH 14.2 % (11.5-14.5); WHITE BLOOD COUNT 11.6 10^3/ul (4.5-11.0)
[2017-11-14 07:56] LABS: ALT/SGPT 24 U/L (7-56); AST/SGOT 26 U/L (14-36); BLOOD UREA NITROGEN 2 mg/dL (7-21); CALCIUM 9.4 mg/dL (8.4-10.5); GFR NON-AFRICAN AMERICAN > 60
--- NOTE | 2017-11-14 08:52 | CT ---
Date of service: 11/14/2017 PROCEDURE: CT Chest without contrast HISTORY: r/o lung mass COMPARISON: CT abdomen/pelvis 11/11/2017 TECHNIQUE: Contiguous axial images were obtained through the chest without intravenous contrast enhancement. Sagittal and coronal reconstructions were performed. Radiation dose (DLP): 290.34 mGy-cm. This CT exam was performed using one or more of the following dose reduction techniques: Automated exposure control, adjustment of the mA and/or kV according to patient size, and/or use of iterative reconstruction technique. FINDINGS: LUNGS: Left lower lobe infiltrate. There are vaguely nodular opacities within this area of infiltrate. Likely pneumonia. Follow-up advised. No other infiltrate seen elsewhere. Trace right pleural effusion versus pleural thickening at posterior lateral lung base. No left pleural effusion. No pneumothorax. MEDIASTINUM: Unremarkable thoracic aorta. No aneurysm. Normal sized heart. Main pulmonary artery unremarkable. No vascular congestion. No lymphadenopathy. PLEURA: As above BONES: Thoracic levoscoliosis. No acute fracture. UPPER ABDOMEN: Possible right renal upper pole cyst. Only partially included in this examination. Correlate with renal ultrasound. OTHER FINDINGS: None. IMPRESSION: Left lower lobe pneumonia. Followup to clearing to exclude underlying neoplasm.
[2017-11-14] MEDS: Enoxaparin 30 mg Syringe SC SCH (10:00)
[2017-11-14] MEDS: Vancomycin 1gm in NS 250ml 1 GM/250 ML BAG IVPB SCH ×2 (10:00→20:46)
--- NOTE | 2017-11-14 10:25 | CARD ---
APPROVED REPORT Date of service: 11/13/2017 EXAM: Two-dimensional and M-mode echocardiogram with Doppler and color Doppler. Other Information Quality : AverageRhythm : INDICATION Infection:Rule out subacute bacterial endocarditis 2D DIMENSIONS Left Atrium (2D)3.5 (1.6-4.0cm)IVSd1.0 (0.7-1.1cm) LVDd3.8 (3.9-5.9cm)PWd0.8 (0.7-1.1cm) LVDs2.8 (2.5-4.0cm)FS (%) 24.9 % LVEF (%)50.0 (>50%) M-Mode DIMENSIONS Aortic Root3.00 (2.2-3.7cm)Aortic Cusp Exc.1.50 (1.5-2.0cm) Aortic Valve AoV Peak Pypzaerl639.0cm/s Mitral Valve MV E Ucdfolqy46.4cm/sMV A Xxlspchv14.4cm/sE/A ratio1.0 TDI Lateral E' Peak V11.20cm/sMedial E' Peak V8.48cm/sE/Lateral E'7.5 E/Medial E'10.0 Pulmonary Valve PV Peak Lcaxvsrd41.4cm/sPV Peak Grad.3mmHg Tricuspid Valve TR Peak Fwxyzxvo098bo/sRAP [id number] Peak Gr.12mmHg [id number] LEFT VENTRICLE The left ventricle is normal size. There is normal left ventricular wall thickness. The left ventricular function is normal. The left ventricular ejection fraction is within the normal range. There is normal LV segmental wall motion. RIGHT VENTRICLE The right ventricle is normal size. ATRIA The left atrium size is normal. The right atrium size is normal. The interatrial septum is intact with no evidence for an atrial septal defect. AORTIC VALVE The aortic valve is normal in structure. MITRAL VALVE The mitral valve is normal in structure. Mitral regurgitation is trace. TRICUSPID VALVE The tricuspid valve is normal in structure. There is trace tricuspid regurgitation. PULMONIC VALVE The pulmonic valve is not well visualized. GREAT VESSELS The aortic root is normal in size. PERICARDIAL EFFUSION There is no pericardial effusion. <Conclusion> The left ventricle is normal size. There is normal left ventricular wall thickness. The left ventricular function is normal.
[2017-11-14] MEDS: Insulin Reg-MEDIUM-Coverage SC SCH ×4 (12:15→22:00)
[2017-11-14] MEDS ORDERED: Magnesium Sulfate 2 gm/50 ml 2 GM/50 ML BAG IVPB ONE (12:22)
[2017-11-14] MEDS: POLYETHYLENE GLYCOL 3350 17 GM/Dose PACKET PO SCH ×2 (12:27→17:19)
[2017-11-14] MEDS: Multivitamin With Minerals Tab PO SCH (12:27)
[2017-11-14] MEDS: Morphine 2 mg/ml ISec IVP PRN (17:44)
--- NOTE | 2017-11-14 19:41 | CP.PCM.PN ---
Subjective - Date & Time of Evaluation Date of Evaluation: 11/14/17 Time of Evaluation: 09:45 - Subjective Subjective: No fevers, non-toxic. Objective - Vital Signs/Intake and Output Vital Signs (last 24 hours): Temp Pulse Resp BP Pulse Ox 98.6 F 86 18 124/81 96 11/14/17 06:00 11/14/17 06:00 11/14/17 06:00 11/14/17 06:00 11/14/17 06:00 Intake and Output: 11/13/17 11/14/17 18:59 06:59 Intake Total 1370 960 Output Total 1500 Balance -130 960 - Medications Medications: Current Medications Alprazolam (Xanax) 1 mg PO BID [facility]; Protocol Last Admin: 11/13/17 17:47 Dose: Not Given Aspirin (Aspirin Chewable) 81 mg PO Q72 [facility] Last Admin: 11/13/17 10:29 Dose: Not Given Atorvastatin Calcium (Lipitor) 40 mg PO DIN [facility] Last Admin: 11/13/17 16:20 Dose: Not Given Citalopram Hydrobromide (Celexa) 10 mg PO DAILY [facility] Last Admin: 11/13/17 10:29 Dose: Not Given Clopidogrel Bisulfate (Plavix) 75 mg PO DAILY [facility] Last Admin: 11/13/17 10:30 Dose: Not Given Duloxetine HCl (Cymbalta) 30 mg PO BID [facility] Last Admin: 11/13/17 17:47 Dose: Not Given Enoxaparin Sodium (Lovenox) 30 mg SC DAILY [facility]; Protocol Last Admin: 11/13/17 09:51 Dose: 30 mg Famotidine (Pepcid) 40 mg PO HS [facility] Last Admin: 11/13/17 21:51 Dose: Not Given Vancomycin HCl (Vancomycin 1gm) 1 gm in 250 mls @ 167 mls/hr IVPB Q12H [facility]; Protocol Last Admin: 11/13/17 21:47 Dose: 167 mls/hr Piperacillin Sod/Tazobactam Sod (Zosyn 3.375 In Ns 100ml) 100 mls @ 200 mls/hr IVPB Q6 [facility]; Protocol Stop: 11/18/17 00:01 Last Admin: 11/14/17 06:01 Dose: 200 mls/hr Potassium Chloride 40 meq/ (Dextrose/Sodium Chloride) 1,020 mls @ 80 mls/hr IV .[id number] [facility] Last Admin: 11/14/17 02:54 Dose: 80 mls/hr Insulin Human Regular (Humulin R Med) 0 units SC ACHS [facility]; Protocol Last Admin: 11/13/17 21:50 Dose: Not Given Lorazepam (Ativan) 0.5 mg IVP Q6H PRN; Protocol PRN Reason: Anxiety Last Admin: 11/14/17 00:28 Dose: 0.5 mg Losartan Potassium (Cozaar) 100 mg PO DAILY [facility] Last Admin: 11/13/17 10:29 Dose: Not Given Metformin HCl (Glucophage) 500 mg PO DAILY [facility] Last Admin: 11/13/17 10:29 Dose: Not Given Morphine Sulfate (Morphine) 2 mg IVP Q6H PRN PRN Reason: Pain, severe (8-10) Last Admin: 11/13/17 20:30 Dose: 2 mg Multivitamins/Minerals (Therapeutic-M Tab) 1 tab PO DAILY [facility] Last Admin: 11/13/17 10:30 Dose: Not Given Polyethylene Glycol (Miralax) 17 gm PO BID [facility] Last Admin: 11/13/17 17:47 Dose: Not Given Pregabalin (Lyrica) 75 mg PO TID [facility] Last Admin: 11/13/17 17:47 Dose: Not Given Zolpidem Tartrate (Ambien) 5 mg PO HS PRN; Protocol PRN Reason: Insomnia - Labs Labs: 11/13/17 06:30 11/13/17 06:30 PT 14.2 SECONDS (9.4-12.5) H 11/10/17 16:20 INR 1.24 11/10/17 16:20 APTT 31.8 Seconds (25.1-36.5) 11/10/17 16:20 - Constitutional Appears: Chronically Ill - Head Exam Head Exam: NORMAL INSPECTION - Respiratory Exam Respiratory Exam: Decreased Breath Sounds - Cardiovascular Exam Cardiovascular Exam: +S1, +S2 - GI/Abdominal Exam GI & Abdominal Exam: Soft. 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
[2017-11-15] MEDS: Piperacillin/Tazobact 3.375 gm 100 ML IVPB SCH ×4 (00:34→18:40)
[2017-11-15] MEDS: Potassium Chloride 40 MEQ in Dextrose 5%/0.9% NS 1,000 ML IV SCH (00:34)
--- NOTE | 2017-11-15 06:45 | CP.PCM.PN ---
<Celine Stone - Last Filed: 11/15/17 11:56> Subjective - Date & Time of Evaluation Date of Evaluation: 11/15/17 Time of Evaluation: 07:00 - Subjective Subjective: Medicine Progress Note for Robe Taylor PGY3 Patient seen and examined at bedside. There were no acute overnight events as per nursing staff. Patient is more alert this AM. She was able to state her name and that she was at [facility]. She denies chest pain, shortness of breath, nausea/vomiting/diarrhea, fever/chills. Objective - Vital Signs/Intake and Output Vital Signs (last 24 hours): Temp Pulse Resp BP Pulse Ox 97.9 F 115 H 20 151/104 H 97 11/14/17 20:45 11/14/17 20:45 11/14/17 20:45 11/14/17 20:45 11/14/17 20:45 Intake and Output: 11/14/17 11/15/17 18:59 06:59 Intake Total 0 Output Total 800 Balance -800 - Medications Medications: Current Medications Alprazolam (Xanax) 1 mg PO BID [facility]; Protocol Last Admin: 11/14/17 17:20 Dose: Not Given Aspirin (Aspirin Chewable) 81 mg PO Q72 [facility] Last Admin: 11/13/17 10:29 Dose: Not Given Atorvastatin Calcium (Lipitor) 40 mg PO DIN [facility] Last Admin: 11/14/17 17:19 Dose: Not Given Citalopram Hydrobromide (Celexa) 10 mg PO DAILY [facility] Last Admin: 11/14/17 12:25 Dose: Not Given Clopidogrel Bisulfate (Plavix) 75 mg PO DAILY [facility] Last Admin: 11/14/17 12:27 Dose: Not Given Duloxetine HCl (Cymbalta) 30 mg PO BID [facility] Last Admin: 11/14/17 12:26 Dose: Not Given Enoxaparin Sodium (Lovenox) 30 mg SC DAILY [facility]; Protocol Last Admin: 11/14/17 10:00 Dose: 30 mg Famotidine (Pepcid) 40 mg PO HS [facility] Last Admin: 11/13/17 21:51 Dose: Not Given Vancomycin HCl (Vancomycin 1gm) 1 gm in 250 mls @ 167 mls/hr IVPB Q12H [facility]; Protocol Last Admin: 11/14/17 20:46 Dose: 167 mls/hr Piperacillin Sod/Tazobactam Sod (Zosyn 3.375 In Ns 100ml) 100 mls @ 200 mls/hr IVPB Q6 [facility]; Protocol Stop: 11/18/17 00:01 Last Admin: 11/15/17 05:17 Dose: 200 mls/hr Potassium Chloride 40 meq/ (Dextrose/Sodium Chloride) 1,020 mls @ 80 mls/hr IV .[id number] [facility] Last Admin: 11/15/17 00:34 Dose: 80 mls/hr Insulin Human Regular (Humulin R Med) 0 units SC ACHS [facility]; Protocol Last Admin: 11/14/17 22:00 Dose: Not Given Lorazepam (Ativan) 0.5 mg IVP Q6H PRN; Protocol PRN Reason: Anxiety Last Admin: 11/15/17 05:17 Dose: 0.5 mg Losartan Potassium (Cozaar) 100 mg PO DAILY [facility] Last Admin: 11/14/17 12:25 Dose: Not Given Metformin HCl (Glucophage) 500 mg PO DAILY [facility] Last Admin: 11/14/17 12:26 Dose: Not Given Morphine Sulfate (Morphine) 2 mg IVP Q6H PRN PRN Reason: Pain, severe (8-10) Last Admin: 11/14/17 17:44 Dose: 2 mg Multivitamins/Minerals (Therapeutic-M Tab) 1 tab PO DAILY [facility] Last Admin: 11/14/17 12:27 Dose: Not Given Polyethylene Glycol (Miralax) 17 gm PO BID [facility] Last Admin: 11/14/17 17:19 Dose: Not Given Pregabalin (Lyrica) 75 mg PO TID [facility] Last Admin: 11/14/17 17:19 Dose: Not Given Zolpidem Tartrate (Ambien) 5 mg PO HS PRN; Protocol PRN Reason: Insomnia - Labs Labs: 11/14/17 06:20 11/14/17 06:20 PT 14.2 SECONDS (9.4-12.5) H 11/10/17 16:20 INR 1.24 11/10/17 16:20 APTT 31.8 Seconds (25.1-36.5) 11/10/17 16:20 - Constitutional Appears: Cachectic - Head Exam Head Exam: ATRAUMATIC, NORMAL INSPECTION, NORMOCEPHALIC - Eye Exam Eye Exam: Normal appearance, PERRL Pupil Exam: NORMAL ACCOMODATION - ENT Exam ENT Exam: Mucous Membranes Dry - Respiratory Exam Respiratory Exam: Clear to Ausculation Bilateral, NORMAL BREATHING PATTERN. absent: Rales, Rhonchi, Wheezes - Cardiovascular Exam Cardiovascular Exam: REGULAR RHYTHM, +S1, +S2. absent: Gallop, Rubs, Murmur - GI/Abdominal Exam GI & Abdominal Exam: Soft, Normal Bowel Sounds. absent: Rigid, Tenderness, Mass, Rebound - Extremities Exam Extremities Exam: absent: Calf Tenderness, Pedal Edema - Neurological Exam Neurological Exam: Alert, CN II-XII Intact. absent: Awake, Oriented x3 (A&O x 2) - Skin Skin Exam: Dry, Warm Assessment and Plan - Assessment and Plan (Free Text) Assessment: This is a 62yo female with past medical history of HTN, NIDDM, CVA, HLD, depression/anxiety, spinal stenosis, peripheral neuropathy who was admitted for 1. Sepsis - secondary to UTI and HCAP 2. Delirium- slowly improving 3. 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 CVA - previous records from [facility]: - CT Head 09/05/17 showed chronic white matter changes without mass. - MRI of brain 08/2017 showed multifocal signal abnormalities (b/l basal ganglia, L thalamus, L midbrain, R cerebellum) representing mixed subacute/chronic ischemia - MRA head/neck 08/2017 showed mild hypoplasia v. stenosis of A1 segment of R anterior cerebral a. but otherwise unremarkable - Bone scan 09/07/2017 showed degenerative changes without evidence of metastatic disease 4. HLD 5. HTN 6. NIDDM 7. Hx of CVA Plan: Patient is slowly improving. Will continue education and re-orientation. Ativan prn agitation. MRI brain will be done today to re-evaluate mass v. CVA. Neurology and Neurosurgery recs appreciated. Patient passed swallow eval. Will put on puree diet and can take PO meds. Will continue home BP and DM medications. Labs and imaging reviewed. Patient is on IV fluids with additives. ID on consult for Sepsis. Continue Vanc/Zosyn. Continue GI and DVT prophylaxis. Case seen, discussed and reviewed with Dr. Perez. Robe Stone PGY3 <Nakul Perez S - Last Filed: 11/15/17 19:16> Objective - Vital Signs/Intake and Output Vital Signs (last 24 hours): Temp Pulse Resp BP Pulse Ox 97.8 F 86 18 151/70 H 96 11/15/17 07:59 11/15/17 07:59 11/15/17 07:59 11/15/17 07:59 11/15/17 07:59 - Medications Medications: Current Medications Alprazolam (Xanax) 1 mg PO BID [facility]; Protocol Last Admin: 11/15/17 18:40 Dose: Not Given Aspirin (Aspirin Chewable) 81 mg PO Q72 [facility] Last Admin: 11/13/17 10:29 Dose: Not Given Atorvastatin Calcium (Lipitor) 40 mg PO DIN [facility] Last Admin: 11/15/17 18:41 Dose: Not Given Citalopram Hydrobromide (Celexa) 10 mg PO DAILY [facility] Last Admin: 11/15/17 10:12 Dose: 10 mg Clopidogrel Bisulfate (Plavix) 75 mg PO DAILY [facility] Last Admin: 11/15/17 10:11 Dose: 75 mg Duloxetine HCl (Cymbalta) 30 mg PO BID [facility] Last Admin: 11/15/17 18:42 Dose: Not Given Enoxaparin Sodium (Lovenox) 30 mg SC DAILY [facility]; Protocol Last Admin: 11/15/17 10:09 Dose: 30 mg Famotidine (Pepcid) 40 mg PO HS [facility] Last Admin: 11/13/17 21:51 Dose: Not Given Vancomycin HCl (Vancomycin 1gm) 1 gm in 250 mls @ 167 mls/hr IVPB Q12H [facility]; Protocol Last Admin: 11/15/17 10:14 Dose: 167 mls/hr Piperacillin Sod/Tazobactam Sod (Zosyn 3.375 In Ns 100ml) 100 mls @ 200 mls/hr IVPB Q6 [facility]; Protocol Stop: 11/18/17 00:01 Last Admin: 11/15/17 18:40 Dose: 200 mls/hr Potassium Chloride 40 meq/ (Dextrose/Sodium Chloride) 1,020 mls @ 50 mls/hr IV .[id number] [facility] Last Admin: 11/15/17 12:01 Dose: 50 mls/hr Insulin Human Regular (Humulin R Med) 0 units SC ACHS [facility]; Protocol Last Admin: 11/15/17 17:00 Dose: Not Given Lorazepam (Ativan) 0.5 mg IVP Q6H PRN; Protocol PRN Reason: Anxiety Last Admin: 11/15/17 14:48 Dose: 0.5 mg Losartan Potassium (Cozaar) 100 mg PO DAILY [facility] Last Admin: 11/15/17 10:20 Dose: 100 mg Metformin HCl (Glucophage) 500 mg PO DAILY [facility] Last Admin: 11/15/17 10:11 Dose: 500 mg Morphine Sulfate (Morphine) 2 mg IVP Q6H PRN PRN Reason: Pain, severe (8-10) Last Admin: 11/15/17 10:12 Dose: 2 mg Multivitamins/Minerals (Therapeutic-M Tab) 1 tab PO DAILY [facility] Last Admin: 11/15/17 10:12 Dose: 1 tab Polyethylene Glycol (Miralax) 17 gm PO BID [facility] Last Admin: 11/15/17 18:41 Dose: Not Given Pregabalin (Lyrica) 75 mg PO TID [facility] Last Admin: 11/15/17 18:41 Dose: Not Given Zolpidem Tartrate (Ambien) 5 mg PO HS PRN; Protocol PRN Reason: Insomnia - Labs Labs: 11/14/17 06:20 11/15/17 06:15 PT 14.2 SECONDS (9.4-12.5) H 11/10/17 16:20 INR 1.24 11/10/17 16:20 APTT 31.8 Seconds (25.1-36.5) 11/10/17 16:20 Assessment and Plan - Assessment and Plan (Free Text) Plan: Pt seen and examined. I have reviewed the note of the medical records secretary and agree with it. I have discussed the assessment and plan with the resident. I have rev iewed the patient's labs and medications. Pt with improvement on congnition. She is waiting for MRI. I spoke to pt's . She is on IV Vanco and Zosyn. She will need DAMION. She is able to tolerate PO.
[2017-11-15 07:14] LABS: ALBUMIN 3.3 g/dL (3.0-4.8); ALT/SGPT 21 U/L (7-56); AST/SGOT 25 U/L (14-36); BLOOD UREA NITROGEN 4 mg/dL (7-21); CALCIUM 9.7 mg/dL (8.4-10.5); GFR NON-AFRICAN AMERICAN > 60
[2017-11-15] MEDS: Insulin Reg-MEDIUM-Coverage SC SCH ×4 (07:58→21:34)
[2017-11-15] MEDS ORDERED: Potassium Chloride 40 MEQ in Dextrose 5%/0.9% NS 1,000 ML IV SCH (09:12)
[2017-11-15] MEDS: Enoxaparin 30 mg Syringe SC SCH (10:09)
[2017-11-15] MEDS: POLYETHYLENE GLYCOL 3350 17 GM/Dose PACKET PO SCH ×2 (10:09→18:41)
[2017-11-15] MEDS: Morphine 2 mg/ml ISec IVP PRN (10:12)
[2017-11-15] MEDS: Multivitamin With Minerals Tab PO SCH (10:12)
[2017-11-15] MEDS: Vancomycin 1gm in NS 250ml 1 GM/250 ML BAG IVPB SCH ×2 (10:14→21:34)
--- NOTE | 2017-11-15 12:15 | PN ---
DATE: 11/15/2017 SUBJECTIVE: The patient is in bed, in no acute distress, nontoxic. PHYSICAL EXAMINATION: VITAL SIGNS: On exam, temperature is 97, blood pressure is 150/70, respiratory rate of 18. HEENT: Examination of HEENT is unremarkable. NECK: Supple. LUNGS: Have decreased breath sounds. HEART: Normal S1 and S2. ABDOMEN: Soft, nontender. LABORATORY DATA: Laboratory examination reveals a white count of 11,600, hemoglobin of 9 and platelets are noted. Chemistries are reviewed. ASSESSMENT AND PLAN: A 62-year-old female, seen early this morning, who was admitted with sepsis due to coag-negative Staphylococcus bacteremia, source unclear as well as lower lobe pneumonia with Enterococcus faecalis in the urine and thalamic mass, etiology to be determined in a patient with diabetes and history of cerebrovascular accident, anxiety, depression, opiate dependence. On vancomycin and Zosyn, day #5, would complete 7 days. The 2-D echo did not show any vegetations. Repeat blood cultures are reported to be negative. The patient has one bottle of coagulase-negative Staphylococcus, most likely a colonizer contamination. The blood cultures are reported to be negative. Currently, the patient is on vancomycin and Zosyn. Had a CAT scan of the chest, which reveals left lower lobe pneumonia. Should follow the resolution. We will follow closely with you. Bruno Payne MD
--- NOTE | 2017-11-15 12:22 | CP.PCM.CON ---
History of Present Illness - History of Present Illness History of Present Illness: Ms Spicer is a 62 year old female with a history of a CVA in June 2017 with left sided weakness and dysarthria who was admitted as per the with a couple day history of difficulty swallowing. On admission, she had a CT of the head on November 10, 2017 which revealed no intracranial findings. A CT of the abdomen and pelvis was negative for metastases. A MRI of the brain without contrast on October 2017 revealed an incompletely characterized 3.2 x 3.2cm round mass in the right thalamus. There were multifocal periventricular white matter changes as well as abnormal signal in the right cerebral peduncles. A follow up MRI of the brain with and without contrast was recommended for better characterization. Incidentally, her last MRI of the brain without contrast in June 2017 revealed a foci of mild increased signal intensity in the right cerebellar lobe, right middle cerebellar peduncle and right posterior medulla. T here were scattered foci within the white matter suggested of chronic small vessel ischemic disease. There was chronic lacunar infers in the right thalamas, aliyah and right cerebral peduncle. She also had a CT of the chest which revealed infiltrate in the left lower lobe suggestive of pneumonia. She was evaluated by neurosurgery who did not recommend surgical resection. They stated that if the patient warranted a biopsy, she would need to go to a tertiary center. We were asked to see the patient for our input regarding the case Review of Systems - Constitutional Constitutional: Weight Loss - EENT Nose/Mouth/Throat: Dysphagia - Musculoskeletal Musculoskeletal: Muscle Weakness - Neurological Neurological: Focal Weakness Past Patient History - Infectious Disease Hx of Infectious Diseases: None - Tetanus Immunizations Tetanus Immunization: Unknown - Past Social History Smoking Status: Never Smoked Alcohol: None Home Situation {Lives}: With Family - CARDIAC Hx Cardiac Disorders: Yes Hx Hypertension: Yes Hx Peripheral Vascular Disease: Yes - PULMONARY Hx Respiratory Disorders: No - NEUROLOGICAL Hx Neurological Disorder: Yes HX Cerebrovascular Accident: Yes (L. sided) - HEENT Hx HEENT Problems: No - RENAL Hx Chronic Kidney Disease: No - ENDOCRINE/METABOLIC Hx Endocrine Disorders: Yes Hx Diabetes Mellitus Type 2: Yes - HEMATOLOGICAL/ONCOLOGICAL Hx Blood Transfusions: No - INTEGUMENTARY Hx Dermatological Problems: Yes Other/Comment: areas of red skin and red spider veins to ble, rednes both knees, scratch navas r ankle, callous 0.5cm round r great toe, pt refused to turn over to assess back due to c/o pain - MUSCULOSKELETAL/RHEUMATOLOGICAL Hx Falls: No - GASTROINTESTINAL Hx Gastrointestinal Disorders: Yes (constipation) - PSYCHIATRIC Hx Substance Use: No - SURGICAL HISTORY Other/Comment: Left Shoulder Surgery (2012). Left Ankle - ANESTHESIA Hx Anesthesia Reactions: Yes Hx Malignant Hyperthermia: No Meds Allergies/Adverse Reactions: Allergies Allergy/AdvReac Type Severity Reaction Status Date / Time No Known Allergies Allergy Verified 11/10/17 16:13 - Medications Medications: Current Medications Alprazolam (Xanax) 1 mg PO BID [facility]; Protocol Last Admin: 11/15/17 10:12 Dose: 1 mg Aspirin (Aspirin Chewable) 81 mg PO Q72 [facility] Last Admin: 11/13/17 10:29 Dose: Not Given Atorvastatin Calcium (Lipitor) 40 mg PO DIN [facility] Last Admin: 11/14/17 17:19 Dose: Not Given Citalopram Hydrobromide (Celexa) 10 mg PO DAILY [facility] Last Admin: 11/15/17 10:12 Dose: 10 mg Clopidogrel Bisulfate (Plavix) 75 mg PO DAILY [facility] Last Admin: 11/15/17 10:11 Dose: 75 mg Duloxetine HCl (Cymbalta) 30 mg PO BID [facility] Last Admin: 11/15/17 10:11 Dose: 30 mg Enoxaparin Sodium (Lovenox) 30 mg SC DAILY [facility]; Protocol Last Admin: 11/15/17 10:09 Dose: 30 mg Famotidine (Pepcid) 40 mg PO HS [facility] Last Admin: 11/13/17 21:51 Dose: Not Given Vancomycin HCl (Vancomycin 1gm) 1 gm in 250 mls @ 167 mls/hr IVPB Q12H [facility]; Protocol Last Admin: 11/15/17 10:14 Dose: 167 mls/hr Piperacillin Sod/Tazobactam Sod (Zosyn 3.375 In Ns 100ml) 100 mls @ 200 mls/hr IVPB Q6 [facility]; Protocol Stop: 11/18/17 00:01 Last Admin: 11/15/17 12:00 Dose: 200 mls/hr Potassium Chloride 40 meq/ (Dextrose/Sodium Chloride) 1,020 mls @ 50 mls/hr IV .[id number] [facility] Last Admin: 11/15/17 12:01 Dose: 50 mls/hr Insulin Human Regular (Humulin R Med) 0 units SC ACHS [facility]; Protocol Last Admin: 11/15/17 11:58 Dose: Not Given Lorazepam (Ativan) 0.5 mg IVP Q6H PRN; Protocol PRN Reason: Anxiety Last Admin: 11/15/17 05:17 Dose: 0.5 mg Losartan Potassium (Cozaar) 100 mg PO DAILY [facility] Last Admin: 11/14/17 12:25 Dose: Not Given Metformin HCl (Glucophage) 500 mg PO DAILY [facility] Last Admin: 11/15/17 10:11 Dose: 500 mg Morphine Sulfate (Morphine) 2 mg IVP Q6H PRN PRN Reason: Pain, severe (8-10) Last Admin: 11/15/17 10:12 Dose: 2 mg Multivitamins/Minerals (Therapeutic-M Tab) 1 tab PO DAILY [facility] Last Admin: 11/15/17 10:12 Dose: 1 tab Polyethylene Glycol (Miralax) 17 gm PO BID [facility] Last Admin: 11/15/17 10:09 Dose: 17 gm Pregabalin (Lyrica) 75 mg PO TID [facility] Last Admin: 11/15/17 10:11 Dose: 75 mg Zolpidem Tartrate (Ambien) 5 mg PO HS PRN; Protocol PRN Reason: Insomnia Physical Exam - Constitutional Appears: Cachectic - Head Exam Head Exam: NORMAL INSPECTION - ENT Exam ENT Exam: Mucous Membranes Moist - Respiratory Exam Respiratory Exam: Clear to Auscultation Bilateral - Cardiovascular Exam Cardiovascular Exam: REGULAR RHYTHM - GI/Abdominal Exam GI & Abdominal Exam: Normal Bowel Sounds - Neurological Exam Neurological exam: Oriented x3 Additional comments: left sided weakness from her CVA Results - Vital Signs Recent Vital Signs: Last Vital Signs Temp 97.8 F 11/15/17 07:59 Pulse 86 11/15/17 07:59 Resp 18 11/15/17 07:59 BP 151/70 H 11/15/17 07:59 Pulse Ox 96 11/15/17 07:59 - Labs Result Diagrams: 11/14/17 06:20 11/15/17 06:15 Labs: Laboratory Results - last 24 hr 11/14/17 11/14/17 11/15/17 06:20 11:52 06:15 Sodium 148 Potassium 3.8 Chloride 120 H Carbon Dioxide 20 L Anion Gap 12 BUN 4 L Creatinine 0.9 Est GFR ( Amer) > 60 Est GFR (Non-Af Amer) > 60 POC Glucose (mg/dL) 98 Random Glucose 134 H Calcium 9.7 Phosphorus 3.4 Magnesium 1.8 Total Bilirubin 0.5 AST 25 ALT 21 Alkaline Phosphatase 63 Total Protein 6.6 Albumin 3.3 Globulin 3.3 Albumin/Globulin Ratio 1.0 L CA 19-9 Antigen 7.6 CA 125 Antigen 9.9 11/15/17 11/15/17 06:35 07:00 Sodium Potassium Chloride Carbon Dioxide Anion Gap BUN Creatinine Est GFR ( Amer) Est GFR (Non-Af Amer) POC Glucose (mg/dL) 147 H 145 H Random Glucose Calcium Phosphorus Magnesium Total Bilirubin AST ALT Alkaline Phosphatase Total Protein Albumin Globulin Albumin/Globulin Ratio CA 19-9 Antigen CA 125 Antigen Assessment & Plan - Assessment and Plan (Free Text) Assessment: Ms Spicer is a 62 year old female with a history of a CVA with permanent left sided weakness and dysarthria. She had a MRI of the brain without contrast on this admission due to issues with dysphagia. The imaging study was limited due to movement during the exam. We reviewed the imaging studies with the neuroradiologist who stated that it is not clear that there is a definitive mass. He felt that it is possible that this could be related to an infarct. She is getting another MRI of the brain with and without contrast for better characterization of the findings. One would think that if it were metastases, one would be able to identify a primary source. Her CT of the chest, abdomen and pelvis is only significant for a pneumonia. If there was an underlying pulmonary mass, one would expect mediastinal adenopathy or other evidence of metastases which there is not especially if you are assuming there is a brain metastases. A primary brain neoplasm of the thalamus is rare. We will await the MRI of the brain with contrast for further information.
--- NOTE | 2017-11-15 12:47 | CP.PCM.CON ---
History of Present Illness - History of Present Illness History of Present Illness: Palliative consult requested by Reason: Goals of care 62 year old female with history of HTN, DM2, CVA's who presented to ED on with generalized weakness, lethargy, fever and cough. Last admission was in June 2017 for CVA. Labs 11/10/17:Wbc 26.4,Hgb11.3,Plt 527, Na 141, K 3.7, Bun 23, creat 0.5, glucose 132, mag 1.5, Ast22. ALT 21, albumin 4.1. urine + blood, bacteria. CT of head 11/10/17.showed no acute abnormalities CT of ab/pelvis 11/11/17: multiple non obstructing left renal calculi, LLL infiltrate, possible pneumonia, no other abnormality MRI of kush on 11/12/17 showed incompletely characterized 3.2X 3.2 round mass in the right thalamus, multifocal periventricular white matter changes and abnormal signal in the right cerebral peduncle and dentate nuclei of the cerebellar hemisphere, symmetric restricted diffusion in bilateral posterior limbs of internal capsules,lateral cerebral peduncles and in the dentate nuclei. Recommended MRI of brain w/wo contrast for further evaluation.Eco 11/[address] of chest 11/14/17 showed LLL pneumonia,recommended f/u upon clearing to exclude underlying neoplasm PMHX :CVA 07/07 residual left sided weakness, HTN,HLD, DM2, diabetic peripheral neuropathy, anxiety/depression. Social History: Never smoker, no alcohol, positive for opioid use. Lives with spouse Family History: Non contributory. Advance Care Planning: The patient does not have an Advanced Directive. Review of Systems: As per HPI , patient is altered unable to obtain complete review Past Patient History - Infectious Disease Hx of Infectious Diseases: None - Tetanus Immunizations Tetanus Immunization: Unknown - Past Social History Smoking Status: Never Smoked Alcohol: None Home Situation {Lives}: With Family - CARDIAC Hx Cardiac Disorders: Yes Hx Hypertension: Yes Hx Peripheral Vascular Disease: Yes - PULMONARY Hx Respiratory Disorders: No - NEUROLOGICAL Hx Neurological Disorder: Yes HX Cerebrovascular Accident: Yes (L. sided) - HEENT Hx HEENT Problems: No - RENAL Hx Chronic Kidney Disease: No - ENDOCRINE/METABOLIC Hx Endocrine Disorders: Yes Hx Diabetes Mellitus Type 2: Yes - HEMATOLOGICAL/ONCOLOGICAL Hx Blood Transfusions: No - INTEGUMENTARY Hx Dermatological Problems: Yes Other/Comment: areas of red skin and red spider veins to ble, rednes both knees, scratch navas r ankle, callous 0.5cm round r great toe, pt refused to turn over to assess back due to c/o pain - MUSCULOSKELETAL/RHEUMATOLOGICAL Hx Falls: No - GASTROINTESTINAL Hx Gastrointestinal Disorders: Yes (constipation) - PSYCHIATRIC Hx Substance Use: No - SURGICAL HISTORY Other/Comment: Left Shoulder Surgery (2012). Left Ankle - ANESTHESIA Hx Anesthesia Reactions: Yes Hx Malignant Hyperthermia: No Meds Allergies/Adverse Reactions: Allergies Allergy/AdvReac Type Severity Reaction Status Date / Time No Known Allergies Allergy Verified 11/10/17 16:13 - Medications Medications: Current Medications Alprazolam (Xanax) 1 mg PO BID [facility]; Protocol Last Admin: 11/15/17 10:12 Dose: 1 mg Aspirin (Aspirin Chewable) 81 mg PO Q72 [facility] Last Admin: 11/13/17 10:29 Dose: Not Given Atorvastatin Calcium (Lipitor) 40 mg PO DIN [facility] Last Admin: 11/14/17 17:19 Dose: Not Given Citalopram Hydrobromide (Celexa) 10 mg PO DAILY [facility] Last Admin: 11/15/17 10:12 Dose: 10 mg Clopidogrel Bisulfate (Plavix) 75 mg PO DAILY [facility] Last Admin: 11/15/17 10:11 Dose: 75 mg Duloxetine HCl (Cymbalta) 30 mg PO BID [facility] Last Admin: 11/15/17 10:11 Dose: 30 mg Enoxaparin Sodium (Lovenox) 30 mg SC DAILY [facility]; Protocol Last Admin: 11/15/17 10:09 Dose: 30 mg Famotidine (Pepcid) 40 mg PO HS [facility] Last Admin: 11/13/17 21:51 Dose: Not Given Vancomycin HCl (Vancomycin 1gm) 1 gm in 250 mls @ 167 mls/hr IVPB Q12H [facility]; Protocol Last Admin: 11/15/17 10:14 Dose: 167 mls/hr Piperacillin Sod/Tazobactam Sod (Zosyn 3.375 In Ns 100ml) 100 mls @ 200 mls/hr IVPB Q6 [facility]; Protocol Stop: 11/18/17 00:01 Last Admin: 11/15/17 12:00 Dose: 200 mls/hr Potassium Chloride 40 meq/ (Dextrose/Sodium Chloride) 1,020 mls @ 50 mls/hr IV .[id number] [facility] Last Admin: 11/15/17 12:01 Dose: 50 mls/hr Insulin Human Regular (Humulin R Med) 0 units SC ACHS [facility]; Protocol Last Admin: 11/15/17 11:58 Dose: Not Given Lorazepam (Ativan) 0.5 mg IVP Q6H PRN; Protocol PRN Reason: Anxiety Last Admin: 11/15/17 05:17 Dose: 0.5 mg Losartan Potassium (Cozaar) 100 mg PO DAILY [facility] Last Admin: 11/14/17 12:25 Dose: Not Given Metformin HCl (Glucophage) 500 mg PO DAILY [facility] Last Admin: 11/15/17 10:11 Dose: 500 mg Morphine Sulfate (Morphine) 2 mg IVP Q6H PRN PRN Reason: Pain, severe (8-10) Last Admin: 11/15/17 10:12 Dose: 2 mg Multivitamins/Minerals (Therapeutic-M Tab) 1 tab PO DAILY [facility] Last Admin: 11/15/17 10:12 Dose: 1 tab Polyethylene Glycol (Miralax) 17 gm PO BID [facility] Last Admin: 11/15/17 10:09 Dose: 17 gm Pregabalin (Lyrica) 75 mg PO TID [facility] Last Admin: 11/15/17 10:11 Dose: 75 mg Zolpidem Tartrate (Ambien) 5 mg PO HS PRN; Protocol PRN Reason: Insomnia Physical Exam - Constitutional Appears: Chronically Ill - Head Exam Head Exam: NORMOCEPHALIC - Eye Exam Eye Exam: Normal appearance, PERRL - ENT Exam ENT Exam: Mucous Membranes Moist, Normal Oropharynx Additional comments: speech is garbled - Neck Exam Neck exam: Positive for: Normal Inspection - Respiratory Exam Respiratory Exam: Decreased Breath Sounds, Rhonchi, NORMAL BREATHING PATTERN - Cardiovascular Exam Cardiovascular Exam: REGULAR RHYTHM, +S1, +S2 - GI/Abdominal Exam GI & Abdominal Exam: Normal Bowel Sounds, Soft Additional comments: no tenderness - Extremities Exam Additional comments: left sided weakness - Neurological Exam Neurological exam: Altered - Skin Skin Exam: Dry, Pallor, Warm - Additional Findings Additional findings: Palliative performance scale rating 30% Results - Vital Signs Recent Vital Signs: Last Vital Signs Temp 97.8 F 11/15/17 07:59 Pulse 86 11/15/17 07:59 Resp 18 11/15/17 07:59 BP 151/70 H 11/15/17 07:59 Pulse Ox 96 11/15/17 07:59 - Labs Result Diagrams: 11/14/17 06:20 11/15/17 06:15 Labs: Laboratory Results - last 24 hr 11/14/17 11/15/17 11/15/17 11:52 06:15 06:35 Sodium 148 Potassium 3.8 Chloride 120 H Carbon Dioxide 20 L Anion Gap 12 BUN 4 L Creatinine 0.9 Est GFR ( Amer) > 60 Est GFR (Non-Af Amer) > 60 POC Glucose (mg/dL) 98 147 H Random Glucose 134 H Calcium 9.7 Phosphorus 3.4 Magnesium 1.8 Total Bilirubin 0.5 AST 25 ALT 21 Alkaline Phosphatase 63 Total Protein 6.6 Albumin 3.3 Globulin 3.3 Albumin/Globulin Ratio 1.0 L 11/15/17 07:00 Sodium Potassium Chloride Carbon Dioxide Anion Gap BUN Creatinine Est GFR ( Amer) Est GFR (Non-Af Amer) POC Glucose (mg/dL) 145 H Random Glucose Calcium Phosphorus Magnesium Total Bilirubin AST ALT Alkaline Phosphatase Total Protein Albumin Globulin Albumin/Globulin Ratio Assessment & Plan - Assessment and Plan (Free Text) Assessment: 62 year old female with history of HTN, DM, CVA who is admitted with sepsis, LLL infiltrate, UTI, weakness and new findings of mass in right thalamus. The patient is not a candidate for surgery resection or biopsy due to location of mass. Oncology recommending further work up, patient not a candidate for aggressive treatment due to poor performance status. Radiation oncology in agreement for repeat MRI of brain w/wo contrast. Palliative services briefly met with . Explained that palliative services would be following to offer support and initiate discussions regarding goals of care and advance care planning. Patient was being taken to MRI, wanted to accompany her. Will meet with at another time Time spent in discussion regarding palliative services 10 minutes Plan: Goals of care and advance care planning Sepsis/UTI/bacteremia: Continue Zosyn and Vancomycin AMS: Neurology following; MRI of brain with/wo contrast pending. Aspiration/seizure precautions. Thalamic mass: Oncology/ Rad oncology following,further work up pending PT/OT
[2017-11-15] MEDS ORDERED: Gadodiamide 287 MG/ML VIAL (15ML) IV ONE (15:31)
--- NOTE | 2017-11-15 16:23 | MRI ---
Date of service: 11/15/2017 PROCEDURE: MRI BRAIN WITH AND WITHOUT CONTRAST HISTORY: ams, rigth thamalic mass, strokes COMPARISON: Brain MRI without contrast 11/11/2017. TECHNIQUE: Multiplanar, multisequence MR images of the brain were obtained with and without intravenous contrast enhancement. 15 cc of Omniscan was utilized for intravenous contrast. FINDINGS: HEMORRHAGE: None DWI: Restricted diffusion at the right thalamus/cortical spinal tracts from the level of the 5th right external capsule to the right aliyah is appreciated suspicious but not definitive for infarction. The prior increased signal along the same distribution of the left cortical spinal tracts is less apparent currently than previously shown. BRAIN PARENCHYMA: Following intravenous gadolinium striation, enhancement is identified at the lateral right thalamus extending into the right cerebral peduncle in a definitive but [id number] pattern, mildly heterogeneous. Dentate signal abnormality is less apparent currently than previously shown as well. This particularly true on T1 weighted imaging. Motion artifacts degrade this examination significantly once again. No additional abnormal enhancement is seen exclusive of the right thalamus and cerebral peduncle. Given lack of pertinent findings here in the prior brain MRI dated 06/26/2017, primary brain neoplasm is not felt to be the etiology. However the pattern, extending along a white matter tract such as this finding demonstrates, is unusual for metastasis. Consider potential ADEM, infarction, metastasis or ALS. Other etiologies are possible as well. Age-related neuro degenerative changes are reiterated. ENHANCEMENT: No abnormal intracranial enhancement. VENTRICLES: Unremarkable. No hydrocephalus. CRANIUM: Unremarkable. ORBITS: Grossly unremarkable. PARANASAL SINUSES/MASTOIDS: Clear VASCULAR SYSTEM: Skull base flow voids intact. OTHER FINDINGS: None . IMPRESSION: Mild enhancement is appreciated in the distribution of prior abnormal signal changes at the right thalamus and cortical spinal tracts to the level of the right cerebral peduncle. While metastasis or infarction or possible, ADEM or ALS are not excluded either. Primary brain neoplasm is not felt to be the etiology. It is difficult to narrow this pathological finding to a single diagnosis. This study as is the prior brain MRI performed 11/11/2017 is compromised by extensive motion artifact.
[2017-11-16] MEDS: Piperacillin/Tazobact 3.375 gm 100 ML IVPB SCH ×4 (03:37→17:48)
[2017-11-16 07:38] LABS: ALB/GLOB RATIO 0.9 (1.1-1.8); ALBUMIN 2.9 g/dL (3.0-4.8); CALCIUM 9.7 mg/dL (8.4-10.5)
[2017-11-16] MEDS: Insulin Reg-MEDIUM-Coverage SC SCH ×4 (08:01→22:23)
[2017-11-16] MEDS: Vancomycin 1gm in NS 250ml 1 GM/250 ML BAG IVPB SCH ×2 (09:26→21:26)
[2017-11-16] MEDS: Enoxaparin 30 mg Syringe SC SCH (12:08)
[2017-11-16] MEDS: Multivitamin With Minerals Tab PO SCH (12:10)
[2017-11-16] MEDS: POLYETHYLENE GLYCOL 3350 17 GM/Dose PACKET PO SCH ×2 (12:12→17:54)
--- NOTE | 2017-11-16 17:00 | CP.PCM.PN ---
<Celine Stone - Last Filed: 11/16/17 17:18> Subjective - Date & Time of Evaluation Date of Evaluation: 11/16/17 Time of Evaluation: 07:00 - Subjective Subjective: Medicine Progress Note for Robe Taylor PGY3 Patient seen and examined at bedside. There were no acute overnight events as per nursing staff. Patient is resting in bed and only answers to some questions. ROS could not be obtained. Objective - Vital Signs/Intake and Output Vital Signs (last 24 hours): Temp Pulse Resp BP Pulse Ox 97.9 F 80 18 150/88 98 11/16/17 14:00 11/16/17 14:00 11/16/17 14:00 11/16/17 14:00 11/16/17 14:00 Intake and Output: 11/16/17 11/16/17 06:59 18:59 Intake Total 1650 860 Output Total 650 900 Balance 1000 -40 - Medications Medications: Current Medications Alprazolam (Xanax) 1 mg PO BID [facility]; Protocol Last Admin: 11/16/17 12:13 Dose: Not Given Aspirin (Aspirin Chewable) 81 mg PO Q72 [facility] Last Admin: 11/16/17 12:10 Dose: 81 mg Atorvastatin Calcium (Lipitor) 40 mg PO DIN [facility] Last Admin: 11/15/17 18:41 Dose: Not Given Citalopram Hydrobromide (Celexa) 10 mg PO DAILY [facility] Last Admin: 11/16/17 12:10 Dose: 10 mg Clopidogrel Bisulfate (Plavix) 75 mg PO DAILY [facility] Last Admin: 11/16/17 12:11 Dose: 75 mg Duloxetine HCl (Cymbalta) 30 mg PO BID [facility] Last Admin: 11/16/17 12:11 Dose: 30 mg Enoxaparin Sodium (Lovenox) 30 mg SC DAILY [facility]; Protocol Last Admin: 11/16/17 12:08 Dose: 30 mg Famotidine (Pepcid) 40 mg PO HS [facility] Last Admin: 11/15/17 21:34 Dose: Not Given Vancomycin HCl (Vancomycin 1gm) 1 gm in 250 mls @ 167 mls/hr IVPB Q12H [facility]; Protocol Last Admin: 11/16/17 09:26 Dose: 167 mls/hr Piperacillin Sod/Tazobactam Sod (Zosyn 3.375 In Ns 100ml) 100 mls @ 200 mls/hr IVPB Q6 [facility]; Protocol Stop: 11/18/17 00:01 Last Admin: 11/16/17 12:07 Dose: 200 mls/hr Potassium Chloride 40 meq/ (Dextrose/Sodium Chloride) 1,020 mls @ 50 mls/hr IV .[id number] [facility] Last Admin: 11/15/17 12:01 Dose: 50 mls/hr Insulin Human Regular (Humulin R Med) 0 units SC ACHS [facility]; Protocol Last Admin: 11/16/17 12:03 Dose: Not Given Lorazepam (Ativan) 0.5 mg IVP Q6H PRN; Protocol PRN Reason: Anxiety Last Admin: 11/15/17 14:48 Dose: 0.5 mg Losartan Potassium (Cozaar) 100 mg PO DAILY [facility] Last Admin: 11/16/17 12:11 Dose: 100 mg Metformin HCl (Glucophage) 500 mg PO DAILY [facility] Last Admin: 11/16/17 12:11 Dose: 500 mg Morphine Sulfate (Morphine) 2 mg IVP Q6H PRN PRN Reason: Pain, severe (8-10) Last Admin: 11/15/17 10:12 Dose: 2 mg Multivitamins/Minerals (Therapeutic-M Tab) 1 tab PO DAILY [facility] Last Admin: 11/16/17 12:10 Dose: 1 tab Polyethylene Glycol (Miralax) 17 gm PO BID [facility] Last Admin: 11/16/17 12:12 Dose: 17 gm Pregabalin (Lyrica) 75 mg PO TID [facility] Last Admin: 11/16/17 12:11 Dose: 75 mg Zolpidem Tartrate (Ambien) 5 mg PO HS PRN; Protocol PRN Reason: Insomnia - Labs Labs: 11/14/17 06:20 11/16/17 07:00 PT 14.2 SECONDS (9.4-12.5) H 11/10/17 16:20 INR 1.24 11/10/17 16:20 APTT 31.8 Seconds (25.1-36.5) 11/10/17 16:20 - Constitutional Appears: No Acute Distress - Head Exam Head Exam: ATRAUMATIC, NORMAL INSPECTION, NORMOCEPHALIC - Eye Exam Eye Exam: Normal appearance, PERRL Pupil Exam: NORMAL ACCOMODATION - ENT Exam ENT Exam: Mucous Membranes Dry - Respiratory Exam Respiratory Exam: Clear to Ausculation Bilateral, NORMAL BREATHING PATTERN. ab sent: Rales, Rhonchi, Wheezes - Cardiovascular Exam Cardiovascular Exam: REGULAR RHYTHM, +S1, +S2. absent: Gallop, Rubs, Murmur - GI/Abdominal Exam GI & Abdominal Exam: Soft, Normal Bowel Sounds. absent: Rigid, Tenderness, Mass, Rebound - Extremities Exam Extremities Exam: Normal Inspection. absent: Calf Tenderness, Pedal Edema - Neurological Exam Neurological Exam: Awake, CN II-XII Intact - Skin Skin Exam: Dry, Warm Assessment and Plan - Assessment and Plan (Free Text) Assessment: This is a 62yo female with past medical history of HTN, NIDDM, CVA, HLD, depression/anxiety, spinal stenosis, peripheral neuropathy who was admitted for 1. Sepsis - secondary to UTI and HCAP 2. RAQUEL - can be secondary to dehydration and poor PO intake 2. Delirium- slowly improving 3. 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 CVA - previous records from [facility]: - CT Head 09/05/17 showed chronic white matter changes without mass. - MRI of brain 08/2017 showed multifocal signal abnormalities (b/l basal ganglia, L thalamus, L midbrain, R cerebellum) representing mixed subacute/chronic ischemia - MRA head/neck 08/2017 showed mild hypoplasia v. stenosis of A1 segment of R anterior cerebral a. but otherwise unremarkable - Bone scan 09/07/2017 showed degenerative changes without evidence of metastatic disease 4. HLD 5. HTN 6. NIDDM 7. Hx of CVA Plan: Will do urine studies. Continue IV fluids with additives. Continue home meds. MRI brain reviewed. Discussed case with neurology. ID recommendations appreciated. Patient on Vanc/Zosyn. Continue medications for BP, DM and depression. Discussed case with patient's POA. Case seen, discussed and reviewed with Dr. Perez. Robe Stone PGY3 <Nakul Perez - Last Filed: 11/16/17 18:22> Objective - Vital Signs/Intake and Output Vital Signs (last 24 hours): Temp Pulse Resp BP Pulse Ox 97.9 F 80 18 150/88 98 11/16/17 14:00 11/16/17 14:00 11/16/17 14:00 11/16/17 14:00 11/16/17 14:00 Intake and Output: 11/16/17 11/16/17 06:59 18:59 Intake Total 1650 860 Output Total 650 900 Balance 1000 -40 - Medications Medications: Current Medications Aspirin (Aspirin Chewable) 81 mg PO Q72 [facility] Last Admin: 11/16/17 12:10 Dose: 81 mg Atorvastatin Calcium (Lipitor) 40 mg PO DIN [facility] Last Admin: 11/16/17 17:49 Dose: 40 mg Citalopram Hydrobromide (Celexa) 10 mg PO DAILY [facility] Last Admin: 11/16/17 12:10 Dose: 10 mg Clopidogrel Bisulfate (Plavix) 75 mg PO DAILY [facility] Last Admin: 11/16/17 12:11 Dose: 75 mg Duloxetine HCl (Cymbalta) 30 mg PO BID [facility] Last Admin: 11/16/17 17:50 Dose: 30 mg Famotidine (Pepcid) 40 mg PO HS [facility] Last Admin: 11/15/17 21:34 Dose: Not Given Heparin Sodium (Porcine) (Heparin) 5,000 units SC Q12 [facility]; Protocol Vancomycin HCl (Vancomycin 1gm) 1 gm in 250 mls @ 167 mls/hr IVPB Q12H [facility]; Protocol Last Admin: 11/16/17 09:26 Dose: 167 mls/hr Piperacillin Sod/Tazobactam Sod (Zosyn 3.375 In Ns 100ml) 100 mls @ 200 mls/hr IVPB Q6 [facility]; Protocol Stop: 11/18/17 00:01 Last Admin: 11/16/17 17:48 Dose: 200 mls/hr Potassium Chloride 40 meq/ (Dextrose/Sodium Chloride) 1,020 mls @ 65 mls/hr IV .[id number] [facility] Insulin Human Regular (Humulin R Med) 0 units SC ACHS [facility]; Protocol Last Admin: 11/16/17 17:50 Dose: Not Given Losartan Potassium (Cozaar) 100 mg PO DAILY [facility] Last Admin: 11/16/17 12:11 Dose: 100 mg Morphine Sulfate (Morphine) 2 mg IVP Q6H PRN PRN Reason: Pain, severe (8-10) Last Admin: 11/15/17 10:12 Dose: 2 mg Multivitamins/Minerals (Therapeutic-M Tab) 1 tab PO DAILY [facility] Last Admin: 11/16/17 12:10 Dose: 1 tab Polyethylene Glycol (Miralax) 17 gm PO BID [facility] Last Admin: 11/16/17 17:54 Dose: Not Given Pregabalin (Lyrica) 75 mg PO TID [facility] Last Admin: 11/16/17 17:54 Dose: 75 mg - Labs Labs: 11/14/17 06:20 11/16/17 07:00 PT 14.2 SECONDS (9.4-12.5) H 11/10/17 16:20 INR 1.24 11/10/17 16:20 APTT 31.8 Seconds (25.1-36.5) 11/10/17 16:20 Assessment and Plan - Assessment and Plan (Free Text) Plan: Pt seen and examined. I have reviewed the note of the medical dosimetrist and agree with it. I have discussed the assessment and plan with the resident. I have reviewed the patient's labs and medications. Pt with sepsis that is improving. She is close to finishing her medication. Spoke to HERNAN (sister- Prabha) to give her an update for 20 min. The prognosis for her recovery is guarded. She will need DAMION. She is interested in going to [facility]. She has been declining for the past 6 months.
--- NOTE | 2017-11-16 18:15 | PN ---
DATE: 11/16/2017 NEUROLOGY FOLLOWUP CHIEF COMPLAINT: Followup for altered mental status. SUBJECTIVE: The patient has Enterococcus fecalis and pneumonia, who was on antibiotics. Her repeat MRI of the brain showed mild enhancement appreciated in the distribution of prior abnormal signal in the right thalamus and corticospinal tract to the level of the cerebral peduncle, which could represent a possible underlying infarction or an acute demyelinating encephalomyelitis. I doubt this is any primary brain neoplasm or ALS at all. She is more alert today and following simple commands. 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 REVIEW OF SYSTEMS: Fourteen-point review of systems is negative except as per the HPI. ALLERGIES: NO KNOWN DRUG ALLERGIES. FAMILY HISTORY: Noncontributory. MEDICATIONS: Reviewed by nurse per reconciliation sheet. LABORATORY DATA: Sodium is 151, potassium 2.6, chloride of 123, carbon dioxide 20. BUN of 8, creatinine 1.7. Random glucose 114. PHYSICAL EXAMINATION: GENERAL: The patient is seen up in bed. Speech is hypophonic. No aphasia noted. Mildly nephrotic. HEENT: Atraumatic, normocephalic. PERRLA. Extraocular muscles intact. NECK: Supple. No JVD, no adenopathy noted. LUNGS: Decreased breath sounds bilaterally. No adventitious sounds. HEART: S1, S2. Normal rate and rhythm. No murmurs, rubs, or gallops. ABDOMEN: Soft, nontender, and nondistended. Bowel sounds are present. EXTREMITIES: No clubbing. No cyanosis. Peripheral pulses 2+ felt bilaterally. NEUROLOGIC: The patient is mildly lethargic, follows simple commands. Speech is hypophonic. No aphasia noted. Difficult to assess true mental status at this point in terms of cognitive aspect. Cranial nerves II through XII are intact. Motor exam: Left side is more weaker in terms of 4/5 when compared to the right. Toes are downgoing bilaterally. Sensory exam: Decreased light touch and pinprick up to the calves bilaterally. Decreased vibration of the toes. DTRs are 2+ throughout and 1 at both knees and absent at the ankles. Coordination has dysmetria of [id number]-[id number]-nrly on the right more than the left, which likely represents her prior infarcts. No fasciculation seen. Gait is deferred for now. ASSESSMENT AND PLAN: This is a 62-year-old woman with past medical history of hypertension; dyslipidemia; type 2 diabetes mellitus; diabetic peripheral neuropathy, on Lyrica and Cymbalta; history of anxiety; history of depression; history of prior infarction in the right cerebellar, right middle cerebral peduncle, right posterior medulla, right thalamus, aliyah as well as right cerebral peduncle as well as new infarction in 08/2017, which was scattered, which was positive for underlying weakness as well as disequilibrium. She also has underlying diabetic sensorimotor peripheral neuropathy in addition. She came in for altered mental status, found to have toxic metabolic encephalopathy from underlying severe sepsis from Enterococcus fecalis urinary tract infection and underlying pneumonia. In addition, her MRI of the brain now has been done with and without contrast, which shows some mild enhancement appreciated in the distribution of the abnormal signal in the right thalamus and corticospinal tract to the level of cerebral peduncle, which could represent chronic infarct versus possible acute demyelinating encephalomyelitis. I doubt this is a primary neoplasm or amyotrophic lateral sclerosis and there is no evidence of fasciculations in her body. At this time, we recommend; 1. Aspirin 81, Plavix 75, Lipitor for stroke prevention. 2. Keep her blood sugars between 140 to 180. 3. Keep her blood pressure between 130s to 140s systolic and diastolic 70s to 80s. 4. Could consider 1 g of IV Solu-Medrol x1 dose to see if it helps improve her symptoms even more, though need to keep an eye on her blood sugars given that it could be possibly acute demyelinating encephalomyelitis, but I highly doubt. At this time go more about palliative and supportive care approach. Continue current present medical management. Continue monitoring her underlying sepsis. Federico Figueroa MD
[2017-11-16 18:52] LABS: CREATININE,RANDOM URINE 26 mg/dL
[2017-11-16 18:58] LABS: URINE BILIRUBIN NEGATIVE (NEGATIVE); URINE BLOOD TRACE-LYSED (NEGATIVE); URINE GLUCOSE (UA) NEGATIVE (NEGATIVE); URINE LEUKOCYTE ESTERASE NEGATIVE Leu/uL (NEGATIVE); URINE PROTEIN NEGATIVE mg/dL (<30 mg/dL); URINE UROBILINOGEN 0.2 E.U./dL (<1 E.U./dL)
[2017-11-16 18:59] LABS: URINE APPEARANCE CLEAR (CLEAR); URINE COLOR LIGHT YELLOW (YELLOW)
[2017-11-16 19:07] LABS: URINE BACTERIA TRACE (NEG); URINE RBC 0 - 2 /hpf (0-2); URINE WBC 0 - 2 /hpf (0-6)
[2017-11-16] MEDS: Potassium Chloride 40 MEQ in Dextrose 5%/0.9% NS 1,000 ML IV SCH (19:08)
--- NOTE | 2017-11-16 22:01 | PN ---
DATE: 11/16/2017 SUBJECTIVE: The patient is in bed, in no acute distress, nontoxic. PHYSICAL EXAMINATION: VITAL SIGNS: Temperature is 98, blood pressure is 150/80, respiratory rate of 18, heart rate of 85. HEENT: Examination of HEENT is unremarkable. NECK: Supple. LUNGS: Have decreased breath sounds. HEART: Normal S1 and S2. ABDOMEN: Soft, nontender. LABORATORY DATA: Laboratory examination reveals a white count of 11,600, hemoglobin of 9, platelets of 463. Chemistries reveals a BUN of 8, creatinine of 1.7, procalcitonin is noted. Microbiology reveals the blood culture has coag-negative Staph. The urine culture has Enterococcus fecalis. MRI of the brain is noted. ASSESSMENT AND PLAN: A 62-year-old female, admitted with sepsis, coagulase-negative Staphylococcus bacteremia as above, lower lobe pneumonia, Enterococcus fecalis in the urine and thalamic mass, etiology to be determined. The patient with diabetes, history of cerebrovascular accident, anxiety, depression. On vancomycin and Zosyn, day #6, would complete 7 days. The echo did not show any vegetations. The repeat blood cultures are negative. Bruno Payne MD
[2017-11-17] MEDS: Piperacillin/Tazobact 3.375 gm 100 ML IVPB SCH ×4 (00:07→18:01)
[2017-11-17 07:58] VITALS: RESP 20
[2017-11-17 09:57] LABS: CALCIUM 9.5 mg/dL (8.4-10.5)
[2017-11-17] MEDS: Insulin Reg-MEDIUM-Coverage SC SCH ×2 (10:13→12:23)
[2017-11-17] MEDS: Vancomycin 1gm in NS 250ml 1 GM/250 ML BAG IVPB SCH (10:14)
[2017-11-17] MEDS: POLYETHYLENE GLYCOL 3350 17 GM/Dose PACKET PO SCH ×2 (10:20→18:00)
[2017-11-17] MEDS: Morphine 2 mg/ml ISec IVP PRN (10:21)
[2017-11-17] MEDS: Multivitamin With Minerals Tab PO SCH (10:23)
--- NOTE | 2017-11-17 13:34 | CP.PCM.PN ---
Subjective - Date & Time of Evaluation Date of Evaluation: 11/17/17 Time of Evaluation: 11:00 - Subjective Subjective: Awake, offers no complaints Objective - Vital Signs/Intake and Output Vital Signs (last 24 hours): Temp Pulse Resp BP Pulse Ox 98.4 F 93 H 20 153/92 H 99 11/17/17 06:00 11/17/17 06:00 11/17/17 06:00 11/17/17 06:00 11/17/17 06:00 - Medications Medications: Current Medications Aspirin (Aspirin Chewable) 81 mg PO Q72 [facility] Last Admin: 11/16/17 12:10 Dose: 81 mg Atorvastatin Calcium (Lipitor) 40 mg PO DIN [facility] Last Admin: 11/16/17 17:49 Dose: 40 mg Citalopram Hydrobromide (Celexa) 10 mg PO DAILY [facility] Last Admin: 11/17/17 10:22 Dose: 10 mg Clopidogrel Bisulfate (Plavix) 75 mg PO DAILY [facility] Last Admin: 11/17/17 10:22 Dose: 75 mg Duloxetine HCl (Cymbalta) 30 mg PO BID [facility] Last Admin: 11/17/17 10:22 Dose: 30 mg Famotidine (Pepcid) 40 mg PO HS [facility] Last Admin: 11/16/17 21:25 Dose: 40 mg Heparin Sodium (Porcine) (Heparin) 5,000 units SC Q12 [facility]; Protocol Last Admin: 11/17/17 10:20 Dose: 5,000 units Piperacillin Sod/Tazobactam Sod (Zosyn 3.375 In Ns 100ml) 100 mls @ 200 mls/hr IVPB Q6 [facility]; Protocol Stop: 11/18/17 00:01 Last Admin: 11/17/17 12:24 Dose: 200 mls/hr Potassium Chloride 40 meq/ (Dextrose/Sodium Chloride) 1,020 mls @ 65 mls/hr IV .[id number] [facility] Last Admin: 11/16/17 19:08 Dose: 65 mls/hr Insulin Human Regular (Humulin R Med) 0 units SC ACHS [facility]; Protocol Last Admin: 11/17/17 12:23 Dose: Not Given Losartan Potassium (Cozaar) 100 mg PO DAILY [facility] Last Admin: 11/17/17 10:25 Dose: 100 mg Morphine Sulfate (Morphine) 2 mg IVP Q6H PRN PRN Reason: Pain, severe (8-10) Last Admin: 11/17/17 10:21 Dose: 2 mg Multivitamins/Minerals (Therapeutic-M Tab) 1 tab PO DAILY [facility] Last Admin: 11/17/17 10:23 Dose: 1 tab Polyethylene Glycol (Miralax) 17 gm PO BID [facility] Last Admin: 11/17/17 10:20 Dose: 17 gm Pregabalin (Lyrica) 75 mg PO TID [facility] Last Admin: 11/17/17 10:22 Dose: 75 mg - Labs Labs: 11/14/17 06:20 11/17/17 09:30 PT 14.2 SECONDS (9.4-12.5) H 11/10/17 16:20 INR 1.24 11/10/17 16:20 APTT 31.8 Seconds (25.1-36.5) 11/10/17 16:20 - Constitutional Appears: Cachectic, Chronically Ill - Eye Exam Eye Exam: Normal appearance, PERRL - Respiratory Exam Respiratory Exam: Clear to Ausculation Bilateral, NORMAL BREATHING PATTERN - Cardiovascular Exam Cardiovascular Exam: REGULAR RHYTHM, +S1, +S2 - Extremities Exam Additional comments: right hemiparesis - Neurological Exam Neurological Exam: Motor Sensory Deficit Neuro motor strength exam: Left Upper Extremity: 3, Right Upper Extremity: 2/1, Left Lower Extremity: 3, Right Lower Extremity: 2/1 - Skin Skin Exam: Dry, Pallor Assessment and Plan - Assessment and Plan (Free Text) Assessment: 62 edis old female with history of multiple DM, HTN HLD, CVA's and right hemiparesis who is admitted with bacteremia, sepsis, LLL pneumonia and abnormal brain MRI Received POA paperwork in which patient's sister, Prabha Reid is appointed as her health care /financial POA The patient confirms that her sister Prabha Reid is POA. Patient does not want to talk about initiating an advance directive or resuscitation wishes at this time. Plan: Transfer to [facility] POA paperwork in chart Continue ASA, Lipitor, Plavix. Follow up with neurology as an out patient
[2017-11-17 14:33] VITALS: BP 142/86; PULSE 82; TEMP 98; O2SAT 96
[2017-11-17] MEDS: Potassium Chloride 40 MEQ in Dextrose 5%/0.9% NS 1,000 ML IV SCH (15:04)
--- NOTE | 2017-11-17 18:04 | CP.PCM.PN ---
Subjective - Date & Time of Evaluation Date of Evaluation: 11/17/17 Time of Evaluation: 11:10 - Subjective Subjective: Afebrile, comfortable. Objective - Vital Signs/Intake and Output Vital Signs (last 24 hours): Temp Pulse Resp BP Pulse Ox 97.2 F L 78 18 142/81 97 11/16/17 23:10 11/16/17 23:10 11/16/17 23:10 11/16/17 23:10 11/16/17 23:10 Intake and Output: 11/16/17 11/17/17 18:59 06:59 Intake Total 860 Output Total 900 Balance -40 - Medications Medications: Current Medications Aspirin (Aspirin Chewable) 81 mg PO Q72 [facility] Last Admin: 11/16/17 12:10 Dose: 81 mg Atorvastatin Calcium (Lipitor) 40 mg PO DIN [facility] Last Admin: 11/16/17 17:49 Dose: 40 mg Citalopram Hydrobromide (Celexa) 10 mg PO DAILY [facility] Last Admin: 11/16/17 12:10 Dose: 10 mg Clopidogrel Bisulfate (Plavix) 75 mg PO DAILY [facility] Last Admin: 11/16/17 12:11 Dose: 75 mg Duloxetine HCl (Cymbalta) 30 mg PO BID [facility] Last Admin: 11/16/17 17:50 Dose: 30 mg Famotidine (Pepcid) 40 mg PO HS [facility] Last Admin: 11/16/17 21:25 Dose: 40 mg Heparin Sodium (Porcine) (Heparin) 5,000 units SC Q12 [facility]; Protocol Last Admin: 11/16/17 21:24 Dose: 5,000 units Vancomycin HCl (Vancomycin 1gm) 1 gm in 250 mls @ 167 mls/hr IVPB Q12H [facility]; Protocol Last Admin: 11/16/17 21:26 Dose: 167 mls/hr Piperacillin Sod/Tazobactam Sod (Zosyn 3.375 In Ns 100ml) 100 mls @ 200 mls/hr IVPB Q6 [facility]; Protocol Stop: 11/18/17 00:01 Last Admin: 11/17/17 04:58 Dose: 200 mls/hr Potassium Chloride 40 meq/ (Dextrose/Sodium Chloride) 1,020 mls @ 65 mls/hr IV .[id number] [facility] Last Admin: 11/16/17 19:08 Dose: 65 mls/hr Insulin Human Regular (Humulin R Med) 0 units SC ACHS [facility]; Protocol Last Admin: 11/16/17 22:23 Dose: Not Given Losartan Potassium (Cozaar) 100 mg PO DAILY [facility] Last Admin: 11/16/17 12:11 Dose: 100 mg Morphine Sulfate (Morphine) 2 mg IVP Q6H PRN PRN Reason: Pain, severe (8-10) Last Admin: 11/15/17 10:12 Dose: 2 mg Multivitamins/Minerals (Therapeutic-M Tab) 1 tab PO DAILY [facility] Last Admin: 11/16/17 12:10 Dose: 1 tab Polyethylene Glycol (Miralax) 17 gm PO BID [facility] Last Admin: 11/16/17 17:54 Dose: Not Given Pregabalin (Lyrica) 75 mg PO TID [facility] Last Admin: 11/16/17 17:54 Dose: 75 mg - Labs Labs: 11/14/17 06:20 11/16/17 07:00 PT 14.2 SECONDS (9.4-12.5) H 11/10/17 16:20 INR 1.24 11/10/17 16:20 APTT 31.8 Seconds (25.1-36.5) 11/10/17 16:20 - Constitutional Appears: Chronically Ill - Head Exam Head Exam: NORMAL INSPECTION - Respiratory Exam Respiratory Exam: Decreased Breath Sounds - Cardiovascular Exam Cardiovascular Exam: +S1, +S2 - GI/Abdominal Exam GI & Abdominal Exam: Soft. 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
--- NOTE | 2017-11-18 06:52 | DS ---
HISTORY OF PRESENT ILLNESS: The patient is a 62-year-old female who came to the hospital because of pneumonia and UTI. The patient was placed on IV antibiotics. She had an MRI done because of an abnormal MRI. There was a small lesion that was seen in the thalamic area. It is hard to ascertain what exactly the cause of this is. I had spoken to Neurology and Oncology. We will do conservative management. The patient's POA has asked for her to be discharged to [place] for rehab. I did advise her that the patient has been declining and her prognosis is guarded. PHYSICAL EXAMINATION: VITAL SIGNS: Temperature is 98.4, pulse of 93, blood pressure is 153/92, respirations 20. GENERAL: The patient is lying in bed, flat, comfortable. HEENT: No oral lesion. Anicteric sclerae. Moist mucosa. NECK: No JVD, adenopathy, or thyromegaly. CARDIOVASCULAR: S1 and S2, regular. No murmurs, rubs, or gallops. LUNGS: Clear to auscultation bilaterally. No wheeze, rales, or rhonchi. ABDOMEN: Bowel sounds are positive, soft, nontender and nondistended. EXTREMITIES: No cyanosis, clubbing or edema. ASSESSMENT: 1. Sepsis secondary to urinary tract infection and hospital-acquired pneumonia. 2. Acute kidney injury, improving. 3. Delirium. 4. Dyslipidemia. 5. Hypertension. 6. Diabetes mellitus type 2. PLAN: The patient is on aspirin. She is going to continue on Losartan. The patient's sodium is mildly elevated secondary to not being able to take on fluids. The patient is on morphine as needed. She is on Plavix. She is on dysphagia modified diet. CONDITION: Stable. ACTIVITY: Increase as tolerated. Nakul Perez MD
== END 2017-11-17 19:30 | DRG 871 ==
LOC: ED 16:07 → ERH 18:20 → 2RSO 21:51 → 5RSO 11-14 13:30
PROVIDERS: ADMIT Internal Medicine Nephrology; ATTEND Internal Medicine Nephrology
DX: A41.9 Sepsis, unspecified organism (principal); J18.9 Pneumonia, unspecified organism; G92 Toxic encephalopathy; N39.0 Urinary tract infection, site not specified; N17.9 Acute kidney failure, unspecified; F11.20 Opioid dependence, uncomplicated; I69.354 Hemiplegia and hemiparesis following cerebral infarction affecting left non-dominant side; R65.20 Severe sepsis without septic shock; B95.2 Enterococcus as the cause of diseases classified elsewhere; E11.42 Type 2 diabetes mellitus with diabetic polyneuropathy; E78.5 Hyperlipidemia, unspecified; E83.42 Hypomagnesemia; E87.6 Hypokalemia; E11.51 Type 2 diabetes mellitus with diabetic peripheral angiopathy without gangrene; F32.9 Major depressive disorder, single episode, unspecified; F41.9 Anxiety disorder, unspecified; I10 Essential (primary) hypertension; E11.610 Type 2 diabetes mellitus with diabetic neuropathic arthropathy; N20.0 Calculus of kidney; Y95 Nosocomial condition; Z79.84 Long term (current) use of oral hypoglycemic drugs

== ENCOUNTER 2017-12-15 22:30 | Inpatient (IN) | payer MEDICARE ==
--- NOTE | 2017-12-15 23:10 | ED PDOC ---
Arrival/HPI - General Chief Complaint: Altered Mental Status Time Seen by Provider: 12/15/17 22:45 Historian: Family, Residential - History of Present Illness Narrative History of Present Illness (Text): 12/15/17 23:05 Shima Spicer is a 62 year old female, whose past medical history includes hypertension, diabetes, CVA with residual left-sided weakness, anxiety, depression, and opiate dependence, who presents to the Emergency department transferred from long term for altered mental status. As per long term documentation, patient has been experiencing decreased appetite and decreased oral intake. Sister present at bedside notes patient is aphasic at baseline. Sister states recent MRI performed in 10/2017 shows a right-sided brain lesion. Limited HPI and ROS secondary to patient's chronic aphasia/acuity of condition. Symptom Onset: Gradual Symptom Course: Unchanged Activities at Onset: Light Context: Home (shelter) Past Medical History - Provider Review Nursing Documentation Reviewed: Yes - Infectious Disease Hx of Infectious Diseases: None - Tetanus Immunization Tetanus Immunization: Unknown - Reproductive Menopause: Yes - Cardiac Hx Cardiac Disorders: Yes Hx Hypertension: Yes - Pulmonary Hx Respiratory Disorders: No - Neurological HX Cerebrovascular Accident: Yes (L. sided) - HEENT Hx HEENT Disorder: No - Renal Hx Renal Disorder: No - Endocrine/Metabolic Hx Diabetes Mellitus Type 2: Yes - Hematological/Oncological Hx Blood Transfusions: No - Integumentary Hx Dermatological Disorder: Yes Other/Comment: areas of red skin and red spider veins to ble, rednes both knees, scratch navas r ankle, callous 0.5cm round r great toe, pt refused to turn over to assess back due to c/o pain - Musculoskeletal/Rheumatological Hx Falls: No - Gastrointestinal Hx Gastrointestinal Disorders: Yes (constipation) - Psychiatric Hx Psychophysiologic Disorder: No Hx Substance Use: No - Surgical History Other/Comment: Left Shoulder Surgery (2012). Left Ankle - Anesthesia Hx Anesthesia Reactions: Yes Hx Malignant Hyperthermia: No Family/Social History - Physician Review Nursing Documentation Reviewed: Yes Family/Social History: Unknown Family HX Smoking Status: Never Smoked Hx Alcohol Use: No Hx Substance Use: No Allergies/Home Meds Allergies/Adverse Reactions: Allergies No Known Allergies Allergy (Verified 12/15/17 22:47) Home Medications: Home Meds Medication Instructions Recorded Confirmed Aspirin [Aspirin Chewable] 1 tab PO DAILY 09/25/16 12/15/17 Citalopram Hydrobromide [Celexa] 1 tab PO DAILY 09/25/16 12/15/17 DULoxetine [Cymbalta] 1 cap PO BID 09/25/16 12/15/17 Multivitamin/Iron/Folic Acid 1 tab PO DAILY 09/25/16 12/15/17 [Centrum Adults Tablet] Pregabalin [Lyrica] 1 cap PO TID 09/25/16 12/15/17 Insulin Human Regular [Novolin R] 0 units SQ ACHS 12/15/17 12/15/17 Multivitamin [Daily Crystal] 1 tab PO DAILY 12/15/17 12/15/17 metFORMIN [glucOPHAGE] 500 mg PO DAILY 12/15/17 12/15/17 Review of Systems - Review of Systems Systems not reviewed;Unavailable: Acuity of Condition Physical Exam Vital Signs Reviewed: Yes Vital Signs Temp Pulse Resp BP Pulse Ox 12/15/17 22:40 97.8 F 81 18 102/66 96 Temperature: Afebrile Blood Pressure: Normal Pulse: Regular Respiratory Rate: Normal Appearance: Positive for: Well-Appearing, Non-Toxic, Comfortable Pain Distress: None Mental Status: Positive for: other (Drowsy but arousable) Finger Stick Blood Glucose: 93 - Systems Exam Head: Present: Atraumatic, Normocephalic Pupils: Present: PERRL Extroacular Muscles: Present: EOMI Conjunctiva: Present: Normal Mouth: Present: Dry (Dry mucous membranes) Respiratory/Chest: Present: Clear to Auscultation, Good Air Exchange. No: Respiratory Distress, Accessory Muscle Use Cardiovascular: Present: Regular Rate and Rhythm, Normal S1, S2. No: Murmurs Abdomen: No: Tenderness, Distention, Peritoneal Signs Upper Extremity: No: Cyanosis, Edema, Tenderness, Swelling, Erythema, Temperature Abnormalties Lower Extremity: No: Edema, Tenderness, Swelling, Erythema, Temperature Abnormalties Neurological: No: Speech Normal (Chronic aphasia), Motor Func Grossly Intact (Left-sided hemiparesis) Skin: Present: Warm, Dry, Normal Color. No: Rashes Psychiatric: Present: Other (Drowsy but arousbale) Medical Decision Making ED Course and Treatment: 12/15/17 23:05 Impression: 62 year old female sent from long term for altered mental status, decreased PO intake, decreased appetite. Plan: -- CT Head w/o contrast -- EKG -- Chest X-ray -- Labs, cardiac enzymes -- UA -- Reassess and disposition Prior Visits: Notes and results from previous visits were reviewed. Progress Notes: Reviewed EKG, NSR at [address]-segment elevations or depressions, no T-wave inversions, normal intervals. 12/16/17 01:35 Reviewed radiology, Chest X-ray shows no acute processes. CT Head shows: The ventricles and sulci are symmetric but prominent in size bilaterally. There are periventricular areas of low attenuation throughout the deep white matter. There is no evidence of acute hemorrhage or infarct. There is no midline shift, mass effect, or extra-axial fluid collection. The osseous structures are unremarkable. There is an air fluid level in the left maxillary sinus. The other visualized paranasal sinuses and mastoid air cells are clear. Impression: 1. No acute hemorrhage or infarct. Findings are consistent with age-related atrophy and chronic small vessel ischemic disease. There is further clinical concern, MRI could be performed. 2. Left maxillary sinusitis. Electronically signed on Dec 16, 2017 1:08:19 AM EDT by: Kwame Alvarenga M.D., Certified by ABR, MSK, Neuroradiology 12/16/17 03:[address] Perez, who is aware and agrees with plan. Accepts pt in to his service. Pt will go to [facility] observation for AMS and UTI. - Lab Interpretations I have reviewed the lab results: Yes - RAD Interpretation Radiology Orders: 12/15/17 22:47 HEAD W/O CONTRAST [CT] Stat CHEST PORTABLE [RAD] Stat Strategic Debriefing Officer: ED Physician, Radiologist - EKG Interpretation Interpreted by ED Physician: Yes Type: 12 lead EKG - Scribe Statement The provider has reviewed the documentation as recorded by the Kojo Martinez Provider Scribe Attestation: All medical record entries made by the Scribe were at my direction and personally dictated by me. I have reviewed the chart and agree that the record accurately reflects my personal performance of the history, physical exam, medical decision making, and the department course for this patient. I have also personally directed, reviewed, and agree with the discharge instructions and disposition. Disposition/Present on Arrival - Present on Arrival Any Indicators Present on Arrival: No History of DVT/PE: No History of Uncontrolled Diabetes: Yes Urinary Catheter: No History of Decub. Ulcer: No History Surgical Site Infection Following: None - Disposition Have Diagnosis and Disposition been Completed?: Yes Diagnosis: Altered mental status, UTI (urinary tract infection) Disposition: HOSPITALIZED Disposition Time: 03:33 Condition: STABLE Referrals: Nakul Perez MD [Primary Care Provider] - Follow up with primary Forms: [employer] (Swedish)
[2017-12-15 23:43] LABS: MEAN CELL VOLUME 85.5 fl (80.0-105.0); MEAN CORPUSCULAR HEMOGLOBIN 26.5 pg (25.0-35.0); RBC 3.39 10^6/uL (3.5-6.1); WHITE BLOOD COUNT 14.7 10^3/uL (4.5-11.0)
[2017-12-16 00:03] LABS: INR 1.24; PARTIAL THROMBOPLASTIN TIME 30.7 Seconds (25.1-36.5); PROTHROMBIN TIME 14.2 SECONDS (9.4-12.5)
[2017-12-16] MEDS ORDERED: Sodium Chloride 0.9% 1,000 ML IV STA ×3 (00:10→04:11)
[2017-12-16 00:14] LABS: TROPONIN I < 0.01 ng/mL
[2017-12-16 00:28] LABS: ALBUMIN 3.3 g/dL (3.0-4.8); ALT/SGPT 18 U/L (7-56); AST/SGOT 18 U/L (14-36); BLOOD UREA NITROGEN 18 mg/dL (7-21); CALCIUM 9.7 mg/dL (8.4-10.5); GFR NON-AFRICAN AMERICAN > 60
[2017-12-16] MEDS ORDERED: cefTRIAXone 1 gm 1 GM/100 ML BAG IV STA (02:35)
[2017-12-16 02:45] LABS: URINE BILIRUBIN NEGATIVE (NEGATIVE); URINE BLOOD MODERATE (NEGATIVE); URINE GLUCOSE (UA) NEGATIVE (NEGATIVE); URINE LEUKOCYTE ESTERASE MODERATE Leu/uL (NEGATIVE); URINE PROTEIN 100 mg/dL (<30 mg/dL); URINE UROBILINOGEN 0.2 E.U./dL (<1 E.U./dL)
[2017-12-16 02:52] LABS: URINE APPEARANCE CLOUDY (CLEAR); URINE COLOR LIGHT YELLOW (YELLOW)
[2017-12-16 03:50] LABS: URINE BACTERIA MANY (NEG); URINE CALCIUM OXALATE CRYSTALS SMALL /hpf; URINE WBC 20 - 25 /hpf (0-6)
--- NOTE | 2017-12-16 05:16 | CT ---
Date of service: 12/16/2017 PROCEDURE: CT HEAD WITHOUT CONTRAST. HISTORY: Altered mental status COMPARISON: MRI brain without and with contrast from 11/15/2017. TECHNIQUE: Axial computed tomography images were obtained through the head/brain without intravenous contrast. Radiation dose: Total exam DLP = 798.43 mGy-cm. This CT exam was performed using one or more of the following dose reduction techniques: Automated exposure control, adjustment of the mA and/or kV according to patient size, and/or use of iterative reconstruction technique. FINDINGS: HEMORRHAGE: No intracranial hemorrhage. BRAIN: There are confluent low-attenuation areas in the periventricular and subcortical white matter. There is no mass, mass effect or abnormal extra-axial fluid collection. There is no territorial infarction. The midline sagittal structures are normal. VENTRICLES: There is mild age advanced global parenchymal volume loss and proportionate enlargement of the ventricles and cortical sulci. CALVARIUM: There is no calvarial fracture or extracranial soft tissue swelling. PARANASAL SINUSES: There is mild polypoid mucosal thickening in the left maxillary sinus. The remaining included paranasal sinuses are clear. MASTOID AIR CELLS: Predominantly clear. OTHER FINDINGS: None. IMPRESSION: Little interval change in confluent subcortical and periventricular abnormality, the differential considerations include chronic microangiopathic changes however these appear advanced for the patient's age. The other considerations include demyelination and leukoencephalopathy. If clinically indicated, correlation with MRI may be performed. Chronic left maxillary sinusitis. No significant interval change. A preliminary report was provided by [facility].
[2017-12-16 05:42] LABS: VENOUS BLOOD GAS BASE EXCESS -3.8 mmol/L (0.0-2.0); VENOUS BLOOD GAS PO2 246 mm/Hg (30-55); VENOUS BLOOD PH 7.44 (7.32-7.43)
--- NOTE | 2017-12-16 05:55 | RAD ---
Date of service: 12/15/2017 HISTORY: Altered mental status COMPARISON: 11/10/2017. FINDINGS: LUNGS: The lungs are well inflated and clear. PLEURA: No pleural effusions or pneumothorax. CARDIOVASCULAR: The heart is normal in size. No aortic atherosclerotic calcification present. OSSEOUS STRUCTURES: There is severe degenerative osteoarthrosis in the glenohumeral joints. VISUALIZED UPPER ABDOMEN: Normal. OTHER FINDINGS: None. IMPRESSION: No active pulmonary disease.
[2017-12-16 07:18] VITALS: BMI 19.7
--- NOTE | 2017-12-16 10:41 | CARD ---
APPROVED REPORT Date of service: 12/15/2017 EKG Measurement Heart [id number] <Conclusion> Normal sinus rhythm NSSTW changes
[2017-12-16] MEDS ORDERED: Morphine 2 mg/ml ISec IVP PRN (11:19)
[2017-12-16] MEDS ORDERED: Morphine 2 mg/ml ISec IVP ONE (11:20)
[2017-12-16] MEDS: Enoxaparin 40 mg Syringe SC SCH (13:18)
[2017-12-16] MEDS: Cefepime 1gm in NS 100ml 1 GM/100 ML BAG IVPB SCH ×2 (13:21→21:30)
--- NOTE | 2017-12-16 19:07 | HP ---
DATE OF EXAM: 12/16/2017 CHIEF COMPLAINT AND HISTORY OF PRESENT ILLNESS: This is a 62-year-old female who is coming in to the hospital with change in her mental status. The patient has a history of hypertension, CVA with left-sided residual weakness. She has a history of anxiety and depression. She is at [facility] rehab, and she is not improved much. She was admitted to the hospital because the patient is aphasic and was having changes in her mental status. She had an MRI in October that showed a brain lesion. The patient is not able to give any information. REVIEW OF SYSTEMS: Review of symptoms is limited because the patient is not able to communicate. PAST MEDICAL HISTORY: As above. Also hypertension, diabetes type 2, peripheral neuropathy, osteoarthritis, chronic pain. SURGICAL HISTORY: Surgery of left foot for Charcot joint. MEDICATIONS: Medications have been reviewed on the APR. ALLERGIES: NO KNOWN DRUG ALLERGIES. SOCIAL HISTORY: She does not drink or use drugs. She was using a walker at home before her stroke. FAMILY HISTORY: There is no history of CA, CVA, or cancer in the family from her history. PHYSICAL EXAMINATION VITAL SIGNS: Temperature is 98.5, pulse is 74, blood pressure is 90/56, respirations 18, O2 saturation is 100%. Height is 5 feet 4 inches, weight is 115 pounds, BMI is 19.7. GENERAL: The patient lying in bed, uncomfortable, and in no acute distress. HEENT: Atraumatic and normocephalic. Anicteric sclerae. Moist mucosa. [place] conjunctivae. No oral lesions. NECK: No JVD, anterior and posterior adenopathy, thyromegaly, or bruits. CARDIOVASCULAR: S1 and S2 regular. No murmur, rubs, or gallop. LUNGS: Clear to auscultation bilaterally. No wheezes, rales, or rhonchi. ABDOMEN: Bowel sounds are positive. Soft, nontender and nondistended. No hepatosplenomegaly. No rebound and no guarding EXTREMITIES: No cyanosis, clubbing, or edema. NEUROLOGIC: The patient has 0/5 power in the left arm and in the left leg. She has 5/5 power in the right arm, but difficult to assess for the right leg. It does move, so at least 3/5 power. She opens her eyes. She is not able to communicate, limited neurological exam. PSYCHIATRIC: Unable to assess. GENITOURINARY: No CVA tenderness. VASCULAR: 2+ pulses in the carotid pulses and pedal pulses. SKIN: No erythema or nodules SPINE: Shows normal curvature. LABORATORY DATA: White count of 14.7, hemoglobin 9.0, platelet count is 356. INR is 1.2. Chemistry shows sodium is 140, potassium is 3.4, creatinine is 0.9. Troponin is 0.01. Urine shows blood that is moderate, nitrites are negative, bilirubin is negative, and esterase moderate. Chest x-ray done shows no active disease. EKG shows sinus rhythm at 82. CT of the head done shows little interval change in the confluent subcortical and periventricular abnormalities. There is chronic left maxillary sinusitis. ASSESSMENT: 1. Urinary tract infection. 2. Dyslipidemia. 3. Hypertension. 4. Diabetes type 2. 5. Cerebrovascular accident with left-sided residual weakness, chronic. 6. Dysphagia. PLAN: The patient has a positive esterase. Most likely the patient has UTI. She has a history of urinary tract infections. I will get ID to evaluate the patient. She is not able take her oral medications. The patient will have her medications on hold. I will put her on DVT prophylaxis with Lovenox. I did speak to the patient's at the bedside to give him an update along with the patient's stepson. The patient has been placed on IV fluids. The patient is n.p.o. Overall prognosis is guarded. Nakul Perez MD
--- NOTE | 2017-12-16 22:18 | CON ---
DATE: 12/16/2017 LOCATION: The patient is seen in room 577, bed 1. CHIEF COMPLAINT Change in mental status x1 day. HISTORY OF PRESENT ILLNESS: This is a 62-year-old female with cerebrovascular accident and left-sided weakness with hypertension, history of coagulase negative Staph bacteremia with diabetes mellitus, depression, opiate dependence, had Enterococcus urinary tract infection in 10/2017, had Klebsiella which was sensitive, urinary tract infection in 06/2017 who is now admitted with a change in mental status from the prison. REVIEW OF SYSTEMS: A 12-point review systems is performed. No fevers have been documented. The patient is unable to communicate well. No chest pain or shortness of breath. No abdominal pain, diarrhea, or constipation. PAST MEDICAL HISTORY: Significant for hypertension, diabetes, depression, cerebrovascular accident with left-sided weakness, urinary tract infections, and opiate dependence. PAST SURGICAL HISTORY: Significant for a midline the right arm. ALLERGIES: THE PATIENT HAS NO KNOWN ALLERGIES. MEDICATIONS: Medications at the prison are reviewed. PHYSICAL EXAMINATION: GENERAL: She is in bed, in no acute distress, chronically ill, debilitated, cachectic, contracted, bedridden, nonverbal. VITAL SIGNS: With a temperature of 98.2, heart rate of 82, blood pressure is 105/50, respiratory rate of 17. HEENT: Unremarkable. NECK: Supple. LUNGS: Decreased breath sounds. HEART: Normal S1 and S2. ABDOMEN: Soft and nontender. No organomegaly. No rebound or guarding. No masses. LABORATORY EXAMINATION: Reveals a white count of 14,700, hemoglobin of 9, platelets of 356. Chemistries reveal a BUN of 18, creatinine of 0.9. LDH is 292. Urinalysis is noted with wbc's of 20 to 25, and microbiology is reviewed. Chest x-ray is negative. CAT scan is noted. Urinalysis is noted. ER chart is reviewed. ASSESSMENT AND PLAN: This is a 62-year-old female, admitted with change in mental status with source of urinary tract infection but no fevers; however, the patient does have leukocytosis with white count of 14,700. We will treat the patient with Maxipime 1 g intravenously every 8 hours, discontinue ceftriaxone and then check on the blood cultures, urine cultures. Overall prognosis is quite poor for this patient who is chronically ill, debilitated, cachectic with a body mass index of only 19. We will follow with you. Bruno Payne MD
[2017-12-17] MEDS: Cefepime 1gm in NS 100ml 1 GM/100 ML BAG IVPB SCH ×3 (05:47→22:10)
[2017-12-17] MEDS: POLYETHYLENE GLYCOL 3350 17 GM/Dose PACKET PO SCH ×2 (10:26→18:20)
[2017-12-17] MEDS: Enoxaparin 40 mg Syringe SC SCH (10:27)
[2017-12-17 12:38] LABS: HEMOGLOBIN 8.6 g/dL (12.0-16.0); MEAN CELL VOLUME 84.3 fl (80.0-105.0); MEAN CORPUSCULAR HGB CONC 32.1 g/dl (31.0-37.0); MEAN PLATELET VOLUME 9.9 fl (7.0-11.0); RBC 3.18 10^6/uL (3.5-6.1); RED CELL DISTRIBUTION WIDTH 14.7 % (11.5-14.5); WHITE BLOOD COUNT 9.2 10^3/uL (4.5-11.0)
--- NOTE | 2017-12-17 13:29 | PN ---
DATE: 12/17/2017 SUBJECTIVE: The patient does not communicate, she opens her eyes. PHYSICAL EXAMINATION: VITAL SIGNS: Temperature is 98.5, pulse is 76, blood pressure 136/91, and respirations are 18. GENERAL: The patient is lying in bed, flat, comfortable. HEENT: No oral lesion. Anicteric sclerae. Moist mucosa. NECK: No JVD, adenopathy, or thyromegaly. CARDIOVASCULAR: S1 and S2, regular. No murmurs, rubs, or gallops. LUNGS: Clear to auscultation bilaterally. No wheeze, rales, or rhonchi. ABDOMEN: Bowel sounds are positive, soft, nontender and nondistended. EXTREMITIES: No cyanosis, clubbing or edema. NEUROLOGIC: Left-sided weakness with 0/5 power in the left arm and leg. LABORATORY DATA: White count of 14.7 and hemoglobin 9. Potassium 3.4. ASSESSMENT: 1. Urinary tract infection. 2. Dyslipidemia. 3. Hypertension. 4. Diabetes type 2. 5. Cerebrovascular accident with left-sided residual weakness, chronic. 6. Dysphasia. PLAN: The patient is currently on morphine for pain. She is on Lovenox for DVT prophylaxis. The patient is going to continue with cefepime. Urine cultures are pending. She is on a liquid diet. We will place her back on her aspirin. She was getting Celexa for anxiety. She is on losartan for her hypertension. She gets Lipitor for dyslipidemia. She will also be on MiraLax for constipation. I did speak to the patient's yesterday to give an update on the patient diagnosis and plan of care. The patient had been DNR at [facility]. We will need to speak to the patient's POA, which is, Prabha, her sister to confirm the DNR and also give her an update on the patient's diagnoses and plan of care. Nakul Perez MD
--- NOTE | 2017-12-17 14:24 | PN ---
DATE: 12/17/2017 SUBJECTIVE: The patient is in bed in no acute distress. PHYSICAL EXAMINATION: VITAL SIGNS: Temperature is 98, blood pressure is 130/90, respiratory rate of 18, heart rate of 76. HEENT: Unremarkable. NECK: Supple. LUNGS: Have decreased breath sounds. HEART: Normal S1, S2. ABDOMEN: Soft. LABORATORY EXAMINATION: Reveals a white count of 14,000, hemoglobin of 9, platelets of 356. Chemistries reveals the patient has a BUN of 18, creatinine of 0.9. Urinalysis is noted and microbiology reveals the blood cultures are no growth. ASSESSMENT AND PLAN: This is a 62-year-old female admitted with a change in mental status, source is the urine and on Maxipime 1 g q.8 hours. Today is day #2 . Urine culture results which were pending. Blood cultures are no growth so far and we will check on the repeat white count which will be ordered today. Bruno Payne MD
--- NOTE | 2017-12-17 17:17 | CON ---
DATE: 12/17/2017 CHIEF COMPLAINT: Altered mental status, history of CVA. HISTORY OF PRESENTING ILLNESS: This is a 62-year-old woman well known to me from previous admission in 11/2017 with past medical history of hypertension, dyslipidemia, type 2 diabetes mellitus, diabetic peripheral neuropathy, on Lyrica and Cymbalta, history of anxiety, history of depression, history of prior infarction in the right cerebellar, right middle cerebral peduncle, right posterior medulla, right thalamus, aliyah as well as a new infarction in 08/2017, which affected underlying speech, has aphasia, more of a left sided weakness in addition to generalized weakness, had a recent MRI of the brain in her last admission, which showed mild enhancement in the distribution of abnormal signal in the right thalamus, corticospinal to the level of the cerebral peduncle, which could represent a chronic infection rather than the neoplasm. He is currently on aspirin, Plavix for stroke prevention and came from underlying rehabilitation for worsening mental status, prior having urinary tract infection with a recent history of Enterococcus faecalis infection in urine and elevated leucocytosis. Currently, she is still aphasic. There was residual left side weakness. Discussed at bedside condition with her . PAST MEDICAL HISTORY: As above. SOCIAL HISTORY: No illicit drug use, smoking or EtOH abuse. REVIEW OF SYSTEMS: Fourteen-point review of systems is negative except as per the HPI. MEDICATIONS: Reviewed by nurses' reconciliation, ALLERGIES: NO KNOWN DRUG ALLERGIES. LABORATORY DATA: No new labs done today. PHYSICAL EXAMINATION GENERAL: The patient is sitting up in bed, in no acute distress. VITAL SIGNS: Temperature 98.5, pulse rate 86, blood pressure 136/91, respiration 18, oxygen sat 97% on room air. HEENT: Atraumatic, normocephalic. PERRLA. Extraocular muscles intact. NECK: Supple. No JVD, no adenopathy noted. LUNGS: Clear to auscultation. No adventitious sounds. HEART: S1, S2. Normal rate and rhythm. No murmurs, rubs or gallops. ABDOMEN: Soft, nontender and nondistended. Bowel sounds are present. EXTREMITIES: No clubbing. No cyanosis. Peripheral pulses 2+ felt bilaterally. NEUROLOGIC: The patient is mildly lethargic, follows simple commands. He is aphasic. Intermittently dysarthric. Speech is hypophonic. Cranial nerves II through XII intact. Has poor cognitive skills. Motor: Left side is more weak in terms of 4/5 when compared to the right. Toes are downgoing bilaterally. Sensory exam: Decreased light touch and pinprick up to the calves bilaterally. Decreased vibration of the toes. DTRs are 2+ throughout and 1 at both knees and absent at the ankles. Coordination has dysmetria of [id number] on the right more than the left, which likely represents her prior infarcts. No fasciculation seen. Gait is deferred for now. ASSESSMENT AND PLAN: A 62-year-old woman with past medical history of hyperlipidemia and type 2 diabetes mellitus, dyslipidemia, hypertension, diabetic peripheral neuropathy, on neuropathic agents, history of anxiety, depression, history of prior infarctions scattered in the right cerebellar, right middle cerebral peduncle, right posterior medulla, right thalamus, aliyah as well as right cerebral peduncle with left side weakness residual and as well as dysarthria, came in for worsening mental status, found to have an elevated leucocytosis and possibly urinary tract infection, on cefepime and is on losartan for hypertension. As soon as she came from the rehab due to worsening mental status, she has an underlying urinary tract infection causing worsening mental status, superimposed underlying cognitive impairment from vascular type, dementia given her multiple CVAs. At this time; 1. Continue aspirin 81 mg, Plavix 75 mg, Lipitor for stroke prevention. 2. Keep blood sugars between 140 to 180. 3. Keep blood pressure between 130s to 140s systolic and diastolic 70s to 80s and continue with antibiotic therapy, PT/OT revaluation, void any sedative meds and at this time prognosis is guarded, spoke to the and recommend once stabilized can go back to rehab. Federico Figueroa MD MARISEL
[2017-12-18] MEDS: Cefepime 1gm in NS 100ml 1 GM/100 ML BAG IVPB SCH ×2 (05:35→19:14)
[2017-12-18] MEDS: POLYETHYLENE GLYCOL 3350 17 GM/Dose PACKET PO SCH ×2 (10:24→19:15)
[2017-12-18] MEDS: Enoxaparin 40 mg Syringe SC SCH (10:27)
--- NOTE | 2017-12-18 11:12 | PN ---
DATE: 12/18/2017 SUBJECTIVE: The patient is in bed, in no acute distress, nontoxic. PHYSICAL EXAMINATION: VITAL SIGNS: Temperature is 98, blood pressure is 150/80, respiratory rate of 20. HEENT: Unremarkable. NECK: Supple. HEART: Normal S1, S2. LUNGS: Have decreased breath sounds. ABDOMEN: Soft. LABORATORY EXAMINATION: Reveals the white count is down to 9.2, hemoglobin is noted, BUN of 18, creatinine of 0.9. Urinalysis is noted. Microbiology reveals the blood cultures are negative. ASSESSMENT AND PLAN: A 62-year-old female who was seen earlier this morning with a change in mental status, urine as the source, on Maxipime, day #3 of Maxipime and blood cultures are reported to be no growth, and urine culture is pending. White count has improved from 14,700 to 9.2, urine was collected on 12/16. We will make further recommendations, urine culture should be available later today. Bruno Payne MD
[2017-12-18 11:32] LABS: HEMOGLOBIN 9.8 g/dL (12.0-16.0); MEAN CELL VOLUME 83.1 fl (80.0-105.0); MEAN CORPUSCULAR HEMOGLOBIN 26.3 pg (25.0-35.0); MEAN CORPUSCULAR HGB CONC 31.7 g/dl (31.0-37.0); PLATELET COUNT 414 10^3/uL (120.0-450.0); RBC 3.72 10^6/uL (3.5-6.1); RED CELL DISTRIBUTION WIDTH 14.6 % (11.5-14.5); WHITE BLOOD COUNT 11.9 10^3/uL (4.5-11.0)
[2017-12-18 11:39] LABS: IRON 28 ug/dL (45-180)
[2017-12-18 11:45] LABS: BLOOD UREA NITROGEN 10 mg/dL (7-21); CALCIUM 9.4 mg/dL (8.4-10.5); GFR NON-AFRICAN AMERICAN > 60
[2017-12-18 11:48] LABS: % IRON SATURATION 11 % (20-55); TOTAL IRON BINDING CAPACITY 257 ug/dL (265-497)
[2017-12-18] MEDS ORDERED: Potassium Chloride 40 mEq/30 ml LIQ UD NG ONE (16:35)
--- NOTE | 2017-12-18 17:24 | CP.PCM.PN ---
<Carlos Enrique Leach - Last Filed: 12/18/17 17:17> Subjective - Date & Time of Evaluation Date of Evaluation: 12/18/17 Time of Evaluation: 07:17 - Subjective Subjective: Carlos Enrique Leach PGY2 IM Progress Note for Dr. Perez Patient was seen and examined at bedside. She is aphasic, due to her history of CVA. There were no acute overnight events. The patient has been afebrile, but remains on cefepime empirically. ID is following the patient, and neurology team has seen her. Nursing notes and chart were reviewed. I discussed with dietitian and nursing staff regarding the patient's p.o. intake, and we will obtain a caloric count, and attempt NG tube insertion for increased caloric supply. Objective - Vital Signs/Intake and Output Vital Signs (last 24 hours): Temp Pulse Resp BP Pulse Ox 99 F 77 20 134/81 100 12/18/17 14:00 12/18/17 14:00 12/18/17 14:00 12/18/17 14:00 12/18/17 14:00 Intake and Output: 12/18/17 12/18/17 06:59 18:59 Intake Total 300 Output Total 650 Balance -350 - Medications Medications: Current Medications Aspirin (Aspirin Chewable) 81 mg PO DAILY [facility] Last Admin: 12/18/17 10:25 Dose: Not Given Citalopram Hydrobromide (Celexa) 10 mg PO DAILY [facility] Last Admin: 12/18/17 10:24 Dose: Not Given Enoxaparin Sodium (Lovenox) 40 mg SC DAILY [facility]; Protocol Last Admin: 12/18/17 10:27 Dose: 40 mg Cefepime HCl (Maxipime 1gm) 1 gm in 100 mls @ 100 mls/hr IVPB Q8 [facility]; Protocol Stop: 12/25/17 14:01 Last Admin: 12/18/17 05:35 Dose: 100 mls/hr Potassium Chloride (Potassium Chloride 10 Meq/100 Ml) 10 meq in 100 mls @ 50 mls/hr IVPB Q2H [facility] Stop: 12/18/17 20:44 Losartan Potassium (Cozaar) 100 mg PO DAILY [facility] Last Admin: 12/18/17 10:24 Dose: Not Given Morphine Sulfate (Morphine) 2 mg IVP Q4H PRN PRN Reason: Pain, moderate (4-7) Polyethylene Glycol (Miralax) 17 gm PO BID [facility] Last Admin: 12/18/17 10:24 Dose: Not Given - Labs Labs: 12/18/17 11:00 12/18/17 11:00 PT 14.2 SECONDS (9.4-12.5) H 12/15/17 23:31 INR 1.24 12/15/17 23:31 APTT 30.7 Seconds (25.1-36.5) 12/15/17 23:31 - Constitutional Appears: Non-toxic, No Acute Distress, Cachectic, Chronically Ill - Head Exam Head Exam: ATRAUMATIC, NORMAL INSPECTION - Eye Exam Eye Exam: Normal appearance, PERRL - ENT Exam ENT Exam: Mucous Membranes Dry - Neck Exam Neck Exam: Normal Inspection. absent: Meningismus, Tenderness - Respiratory Exam Respiratory Exam: NORMAL BREATHING PATTERN. absent: Rales, Rhonchi, Wheezes, Respiratory Distress - Cardiovascular Exam Cardiovascular Exam: RRR, +S1, +S2. absent: Murmur - GI/Abdominal Exam GI & Abdominal Exam: Soft, Normal Bowel Sounds. 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 intake and lethargy. Suspected etiology is UTI, and patient is on cefepime empirically. She should be aspirin, Plavix and Lipitor for stroke prevention, however, there's an issue with dysphagia as patient is at high risk for aspiration. CXR and head CT were reviewed and are unremarkable. We are addressing the issue of her decreased p.o. intake and malnutrition. Anemia also noted. Plan: - After discussion with dietitian, will attempt to place NG tube for parenteral nutrition - CLD with honey thick liquids for dysphagia diet - Dietitian referral ordered - Calorie count ordered - Supplement potassium - Continue aspirin for stroke prevention - Continue Lovenox for DVT PPX - Continue cefepime empirically for UTI - Continue Celexa - Continue losartan for HTN - Morphine as needed for pain - Anemia workup ordered - ID and neurology following, recs appreciated - PT recommending [facility], patient will return to [facility] when cleared - Further recs per Dr. Perez Case was reviewed and discussed with attending, Dr. Chris Leach PGY2 <Nakul Perez - Last Filed: 12/18/17 20:41> Objective - Vital Signs/Intake and Output Vital Signs (last 24 hours): Temp Pulse Resp BP Pulse Ox 99 F 77 20 134/81 100 12/18/17 14:00 12/18/17 14:00 12/18/17 14:00 12/18/17 14:00 12/18/17 14:00 - Medications Medications: Current Medications Aspirin (Aspirin Chewable) 81 mg PO DAILY [facility] Last Admin: 12/18/17 10:25 Dose: Not Given Citalopram Hydrobromide (Celexa) 10 mg PO DAILY [facility] Last Admin: 12/18/17 10:24 Dose: Not Given Enoxaparin Sodium (Lovenox) 40 mg SC DAILY [facility]; Protocol Last Admin: 12/18/17 10:27 Dose: 40 mg Cefepime HCl (Maxipime 1gm) 1 gm in 100 mls @ 100 mls/hr IVPB Q8 [facility]; Protocol Stop: 12/25/17 14:01 Last Admin: 12/18/17 19:14 Dose: 100 mls/hr Potassium Chloride (Potassium Chloride 10 Meq/100 Ml) 10 meq in 100 mls @ 50 mls/hr IVPB Q2H [facility] Stop: 12/18/17 20:44 Last Admin: 12/18/17 19:53 Dose: 50 mls/hr Losartan Potassium (Cozaar) 100 mg PO DAILY [facility] Last Admin: 12/18/17 10:24 Dose: Not Given Morphine Sulfate (Morphine) 2 mg IVP Q4H PRN PRN Reason: Pain, moderate (4-7) Polyethylene Glycol (Miralax) 17 gm PO BID [facility] Last Admin: 12/18/17 19:15 Dose: Not Given - Labs Labs: 12/18/17 11:00 12/18/17 11:00 PT 14.2 SECONDS (9.4-12.5) H 12/15/17 23:31 INR 1.24 12/15/17 23:31 APTT 30.7 Seconds (25.1-36.5) 12/15/17 23:31 Assessment and Plan - Assessment and Plan (Free Text) Plan: Pt seen and examined by me. I have reviewed the note by the bilingual medical receptionist. The case was discussed and reviewed with the resident. I reviewed the medications and labs.Pt with UTI being treated with Cefepime. Awaiting final UCx results. Pt on Losartan for HTN. She is not ready to be discharged. The pt sena Morphine for pain prn. Reviewed the note of the swallowing evaluation that was done. ID followng the pt. She is DNR/DNR. Will send to [facility] when UCx identified. Check iron studies for def.
[2017-12-18 18:25] LABS: FOLATE > 20.0 ng/mL
[2017-12-19] MEDS: Cefepime 1gm in NS 100ml 1 GM/100 ML BAG IVPB SCH ×2 (02:01→07:54)
[2017-12-19 08:04] VITALS: RESP 18
--- NOTE | 2017-12-19 09:40 | CP.PCM.DIS ---
<Carlos Enrique Leach - Last Filed: 12/19/17 17:41> Provider - Provider Date of Admission: 12/16/17 21:51 Attending physician: Nakul Perez MD Primary care physician: Nakul Perez MD Time Spent in preparation of Discharge (in minutes): 35 Diagnosis - Discharge Diagnosis (1) Generalized weakness Status: Acute (2) Aphasia as late effect of cerebrovascular accident (CVA) Status: Chronic Hospital Course - Lab Results Lab Results: Micro Results 12/16/17 03:27 Blood Blood Culture - Preliminary NO GROWTH AFTER 3 DAYS 12/16/17 02:35 Blood Blood Culture - Preliminary NO GROWTH AFTER 3 DAYS 12/16/17 02:07 Urine,Clean Catch Urine Culture - Final Yeast Species Most Recent Lab Values WBC 11.9 10^3/uL (4.5-11.0) H D 12/18/17 11:00 RBC 3.72 10^6/uL (3.5-6.1) 12/18/17 11:00 Hgb 9.8 g/dL (12.0-16.0) L 12/18/17 11:00 Hct 30.9 % (36.0-48.0) L 12/18/17 11:00 MCV 83.1 fl (80.0-105.0) 12/18/17 11:00 MCH 26.3 pg (25.0-35.0) 12/18/17 11:00 MCHC 31.7 g/dl (31.0-37.0) 12/18/17 11:00 RDW 14.6 % (11.5-14.5) H 12/18/17 11:00 Plt Count 414 10^3/uL (120.0-450.0) 12/18/17 11:00 MPV 10.0 fl (7.0-11.0) 12/18/17 11:00 Retic Count 0.86 % (0.5-1.5) 12/18/17 11:00 PT 14.2 SECONDS (9.4-12.5) H 12/15/17 23:31 INR 1.24 12/15/17 23:31 APTT 30.7 Seconds (25.1-36.5) 12/15/17 23:31 pO2 246 mm/Hg (30-55) H 12/16/17 05:15 VBG pH 7.44 (7.32-7.43) H 12/16/17 05:15 VBG pCO2 28.0 (40-60) L 12/16/17 05:15 VBG HCO3 19.0 mmol/l (21-28) L 12/16/17 05:15 VBG Total CO2 19.9 mmol.L (22-28) L 12/16/17 05:15 VBG O2 Sat (Calc) 100.3 % (40-65) H 12/16/17 05:15 VBG Base Excess -3.8 mmol/L (0.0-2.0) L 12/16/17 05:15 VBG Potassium 3.3 mmol/L (3.6-5.2) L 12/16/17 05:15 Sodium 142.0 mmol/L (132-148) 12/16/17 05:15 Chloride 116.0 mmol/L (98-107) H 12/16/17 05:15 Glucose 103 mg/dl (65-105) 12/16/17 05:15 Lactate 0.6 mmol/L (0.7-2.1) L 12/16/17 05:15 FiO2 21.0 % 12/16/17 05:15 Sodium 141 mmol/L (132-148) 12/18/17 11:00 Potassium 2.9 mmol/L (3.6-5.0) L* 12/18/17 11:00 Chloride 112 mmol/L (98-107) H 12/18/17 11:00 Carbon Dioxide 16 mmol/L (21-33) L 12/18/17 11:00 Anion Gap 16 (10-20) 12/18/17 11:00 BUN 10 mg/dL (7-21) 12/18/17 11:00 Creatinine 0.7 mg/dl (0.7-1.2) 12/18/17 11:00 Est GFR ( Amer) > 60 12/18/17 11:00 Est GFR (Non-Af Amer) > 60 12/18/17 11:00 POC Glucose (mg/dL) 93 mg/dL (65-110) 12/15/17 22:37 Random Glucose 105 mg/dL (70-110) 12/18/17 11:00 Calcium 9.4 mg/dL (8.4-10.5) 12/18/17 11:00 Iron 28 ug/dL (45-180) L 12/18/17 11:00 TIBC 257 ug/dL (265-497) L 12/18/17 11:00 % Saturation 11 % (20-55) L 12/18/17 11:00 Transferrin 174.13 mg/dL (206-381) L 12/18/17 11:00 Ferritin 145.0 ng/mL 12/18/17 11:00 Total Bilirubin 0.4 mg/dL (0.2-1.3) 12/15/17 23:31 AST 18 U/L (14-36) 12/15/17 23:31 ALT 18 U/L (7-56) 12/15/17 23:31 Alkaline Phosphatase 69 U/L (38-126) 12/15/17 23:31 Lactate Dehydrogenase 292 U/L (333-699) L 12/15/17 23:31 Total Creatine Kinase 32 U/L (35-230) L 12/15/17 23:31 Troponin I < 0.01 ng/mL 12/15/17 23:31 Total Protein 6.6 g/dL (5.8-8.3) 12/15/17 23:31 Albumin 3.3 g/dL (3.0-4.8) 12/15/17 23:31 Globulin 3.2 gm/dL 12/15/17 23:31 Albumin/Globulin Ratio 1.0 (1.1-1.8) L 12/15/17 23:31 Vitamin B12 443 pg/mL (239-931) 12/18/17 11:00 Folate > 20.0 ng/mL 12/18/17 11:00 Venous Blood Potassium 3.3 mmol/L (3.6-5.2) L 12/16/17 05:15 Urine Color Light yellow (YELLOW) 12/16/17 02:07 Urine Appearance Cloudy (CLEAR) 12/16/17 02:07 Urine pH 6.0 (4.7-8.0) 12/16/17 02:07 Ur Specific [place] >= 1.030 (1.005-1.035) 12/16/17 02:07 Urine Protein 100 mg/dL (<30 mg/dL) H 12/16/17 02:07 Urine Glucose (UA) Negative mg/dL (NEGATIVE) 12/16/17 02:07 Urine Ketones Negative mg/dL (NEGATIVE) 12/16/17 02:07 Urine Blood Moderate (NEGATIVE) H 12/16/17 02:07 Urine Nitrate Negative (NEGATIVE) 12/16/17 02:07 Urine Bilirubin Negative (NEGATIVE) 12/16/17 02:07 Urine Urobilinogen 0.2 E.U./dL (<1 E.U./dL) 12/16/17 02:07 Ur Leukocyte Esterase Moderate Traci/uL (NEGATIVE) H 12/16/17 02:07 Urine RBC 10 - 15 /hpf (0-2) 12/16/17 02:07 Urine WBC 20 - 25 /hpf (0-6) 12/16/17 02:07 Ur Epithelial Cells 4 - 5 /hpf (0-5) 12/16/17 02:07 Calcium Oxalate Crystal Small /hpf 12/16/17 02:07 Urine Bacteria Many (NEG) 12/16/17 02:07 - Hospital Course Hospital Course: 62-year-old female with a PMH of 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 Patient was started on cefepime empirically for UTI, but urine culture came back positive only for yeast. ID was consulted for the patient and recommend Diflucan 100 mg daily for [address] head were also reviewed and were unremarkable. Neurology was consulted and recommended continuing aspirin, Plavix and Lipitor for stroke prevention. The patient does have an issue of dysphagia due to her stroke residual symptoms. After discussion with the family and Dr. Perez, no oral or NG tube were placed. Registered dietitian did follow the patient while in-house to make recommendations regarding nutritional needs and supplements. Physical therapy evaluated the patient, and recommended DAMION. Patient is being discharged to [facility]. Discharge Exam - Head Exam Head Exam: ATRAUMATIC, NORMAL INSPECTION - Eye Exam Eye Exam: EOMI, Normal appearance, PERRL - ENT Exam ENT Exam: Mucous Membranes Dry - Neck Exam Neck exam: Normal Inspection - Respiratory Exam Respiratory Exam: NORMAL BREATHING PATTERN. absent: Rhonchi, Wheezes, Respiratory Distress - Cardiovascular Exam Cardiovascular Exam: RRR, +S1, +S2 - GI/Abdominal Exam GI & Abdominal Exam: Soft. absent: Distended, Tenderness - Extremities Exam Additional comments: muscle atrophy contracted - Back Exam Back exam: NORMAL INSPECTION - Neurological Exam Neurological exam: Altered Additional comments: not following commands left sided weakness - Skin Skin Exam: Dry Discharge Plan - Discharge Medications Prescriptions: Fluconazole [Diflucan] 100 mg PO DAILY #3 tab - Follow Up Plan Condition: STABLE Disposition: REHAB FACILITY/REHAB UNIT Instructions: Pressure Sores, Clear Liquid Diet, Peripherally-Inserted Central Catheter, Influenza Virus Vaccine (Recombinant), Pneumococcal Polysaccharide Vaccine (23-Valent), Urinary Tract Infection in Women (DC), Dysuria (GEN), Weakness (GEN), Altered Mental Status (GEN) Additional Instructions: - d/c to [facility] - please continue meds as prescribed - please complete Diflucan daily for 3 days - please use midline for medications and nutrition - patient is DNR/DNI Referrals: Nakul Perez MD [Primary Care Provider] - <Nakul Perez - Last Filed: 12/19/17 20:03> Provider - Provider Date of Admission: 12/16/17 21:51 Attending physician: Nakul Perez MD Primary care physician: Nakul Perez MD Hospital Course - Lab Results Lab Results: Micro Results 12/16/17 03:27 Blood Blood Culture - Preliminary NO GROWTH AFTER 3 DAYS 12/16/17 02:35 Blood Blood Culture - Preliminary NO GROWTH AFTER 3 DAYS 12/16/17 02:07 Urine,Clean Catch Urine Culture - Final Yeast Species Most Recent Lab Values WBC 11.9 10^3/uL (4.5-11.0) H D 12/18/17 11:00 RBC 3.72 10^6/uL (3.5-6.1) 12/18/17 11:00 Hgb 9.8 g/dL (12.0-16.0) L 12/18/17 11:00 Hct 30.9 % (36.0-48.0) L 12/18/17 11:00 MCV 83.1 fl (80.0-105.0) 12/18/17 11:00 MCH 26.3 pg (25.0-35.0) 12/18/17 11:00 MCHC 31.7 g/dl (31.0-37.0) 12/18/17 11:00 RDW 14.6 % (11.5-14.5) H 12/18/17 11:00 Plt Count 414 10^3/uL (120.0-450.0) 12/18/17 11:00 MPV 10.0 fl (7.0-11.0) 12/18/17 11:00 Retic Count 0.86 % (0.5-1.5) 12/18/17 11:00 PT 14.2 SECONDS (9.4-12.5) H 12/15/17 23:31 INR 1.24 12/15/17 23:31 APTT 30.7 Seconds (25.1-36.5) 12/15/17 23:31 pO2 246 mm/Hg (30-55) H 12/16/17 05:15 VBG pH 7.44 (7.32-7.43) H 12/16/17 05:15 VBG pCO2 28.0 (40-60) L 12/16/17 05:15 VBG HCO3 19.0 mmol/l (21-28) L 12/16/17 05:15 VBG Total CO2 19.9 mmol.L (22-28) L 12/16/17 05:15 VBG O2 Sat (Calc) 100.3 % (40-65) H 12/16/17 05:15 VBG Base Excess -3.8 mmol/L (0.0-2.0) L 12/16/17 05:15 VBG Potassium 3.3 mmol/L (3.6-5.2) L 12/16/17 05:15 Sodium 142.0 mmol/L (132-148) 12/16/17 05:15 Chloride 116.0 mmol/L (98-107) H 12/16/17 05:15 Glucose 103 mg/dl (65-105) 12/16/17 05:15 Lactate 0.6 mmol/L (0.7-2.1) L 12/16/17 05:15 FiO2 21.0 % 12/16/17 05:15 Sodium 143 mmol/L (132-148) 12/19/17 10:30 Potassium 3.3 mmol/L (3.6-5.0) L 12/19/17 10:30 Chloride 114 mmol/L (98-107) H 12/19/17 10:30 Carbon Dioxide 15 mmol/L (21-33) L 12/19/17 10:30 Anion Gap 17 (10-20) 12/19/17 10:30 BUN 12 mg/dL (7-21) 12/19/17 10:30 Creatinine 0.7 mg/dl (0.7-1.2) 12/19/17 10:30 Est GFR ( Amer) > 60 12/19/17 10:30 Est GFR (Non-Af Amer) > 60 12/19/17 10:30 POC Glucose (mg/dL) 93 mg/dL (65-110) 12/15/17 22:37 Random Glucose 91 mg/dL (70-110) 12/19/17 10:30 Calcium 9.7 mg/dL (8.4-10.5) 12/19/17 10:30 Phosphorus 2.9 mg/dL (2.5-4.5) 12/19/17 10:30 Magnesium 1.6 mg/dL (1.7-2.2) L 12/19/17 10:30 Iron 28 ug/dL (45-180) L 12/18/17 11:00 TIBC 257 ug/dL (265-497) L 12/18/17 11:00 % Saturation 11 % (20-55) L 12/18/17 11:00 Transferrin 174.13 mg/dL (206-381) L 12/18/17 11:00 Ferritin 145.0 ng/mL 12/18/17 11:00 Total Bilirubin 0.5 mg/dL (0.2-1.3) 12/19/17 10:30 AST 13 U/L (14-36) L D 12/19/17 10:30 ALT 20 U/L (7-56) 12/19/17 10:30 Alkaline Phosphatase 74 U/L (38-126) 12/19/17 10:30 Lactate Dehydrogenase 292 U/L (333-699) L 12/15/17 23:31 Total Creatine Kinase 32 U/L (35-230) L 12/15/17 23:31 Troponin I < 0.01 ng/mL 12/15/17 23:31 Total Protein 6.8 g/dL (5.8-8.3) 12/19/17 10:30 Albumin 3.4 g/dL (3.0-4.8) 12/19/17 10:30 Globulin 3.3 gm/dL 12/19/17 10:30 Albumin/Globulin Ratio 1.0 (1.1-1.8) L 12/19/17 10:30 Vitamin B12 443 pg/mL (239-931) 12/18/17 11:00 Folate > 20.0 ng/mL 12/18/17 11:00 Venous Blood Potassium 3.3 mmol/L (3.6-5.2) L 12/16/17 05:15 Urine Color Light yellow (YELLOW) 12/16/17 02:07 Urine Appearance Cloudy (CLEAR) 12/16/17 02:07 Urine pH 6.0 (4.7-8.0) 12/16/17 02:07 Ur Specific [place] >= 1.030 (1.005-1.035) 12/16/17 02:07 Urine Protein 100 mg/dL (<30 mg/dL) H 12/16/17 02:07 Urine Glucose (UA) Negative mg/dL (NEGATIVE) 12/16/17 02:07 Urine Ketones Negative mg/dL (NEGATIVE) 12/16/17 02:07 Urine Blood Moderate (NEGATIVE) H 12/16/17 02:07 Urine Nitrate Negative (NEGATIVE) 12/16/17 02:07 Urine Bilirubin Negative (NEGATIVE) 12/16/17 02:07 Urine Urobilinogen 0.2 E.U./dL (<1 E.U./dL) 12/16/17 02:07 Ur Leukocyte Esterase Moderate Traci/uL (NEGATIVE) H 12/16/17 02:07 Urine RBC 10 - 15 /hpf (0-2) 12/16/17 02:07 Urine WBC 20 - 25 /hpf (0-6) 12/16/17 02:07 Ur Epithelial Cells 4 - 5 /hpf (0-5) 12/16/17 02:07 Calcium Oxalate Crystal Small /hpf 12/16/17 02:07 Urine Bacteria Many (NEG) 12/16/17 02:07 - Hospital Course Hospital Course: Pt seen and examined. I have reviewed the note of the medical collections and agree with it. I have discussed the assessment and plan with the resident. I have reviewed the patient's labs and medications. Pt with UTI and has improved. She will be placed on Diflucan and sent back to [facility] for DAMION. I did inform her POA regarding the discharge. Her prognosis is guarded. She is more awake at today then in the past few days.
[2017-12-19] MEDS: POLYETHYLENE GLYCOL 3350 17 GM/Dose PACKET PO SCH ×2 (10:03→17:19)
[2017-12-19] MEDS: Enoxaparin 40 mg Syringe SC SCH (10:11)
[2017-12-19 11:27] LABS: ALBUMIN 3.4 g/dL (3.0-4.8); ALT/SGPT 20 U/L (7-56); AST/SGOT 13 U/L (14-36); BLOOD UREA NITROGEN 12 mg/dL (7-21); CALCIUM 9.7 mg/dL (8.4-10.5); GFR NON-AFRICAN AMERICAN > 60
[2017-12-19] MEDS ORDERED: Magnesium Sulfate 1 gm in D5W 1 GM/100 ML BAG IVPB ONE (13:14)
--- NOTE | 2017-12-19 16:11 | PN ---
DATE: 12/19/2017 SUBJECTIVE: The patient is in bed, in no acute distress, nontoxic. PHYSICAL EXAMINATION: VITAL SIGNS: On exam, temperature is 98, blood pressure is 117/60, respiratory rate of 18. HEENT: Examination of HEENT is unremarkable. NECK: Supple. LUNGS: Have decreased breath sounds. HEART: Normal S1, S2. ABDOMEN: Soft, nontender. LABORATORY DATA: Laboratory examination reveals the white count is down to 11,900. Chemistries are noted and the urinalysis is noted. Microbiology reveals the urine culture has yeast. The blood cultures are no growth. ASSESSMENT AND PLAN: A 62-year-old female with change in mental status, urine as the source, on Maxipime day #4 and cultures no growth. Urine culture has yeast. We will add Diflucan 100 mg p.o. once daily x3 days and discontinue the cefepime. Bruno Payne MD
[2017-12-19 18:12] VITALS: BP 126/69; PULSE 72; TEMP 98.1; O2SAT 100
--- NOTE | 2017-12-22 13:36 | PQF ---
PROVIDER RESPONSE TEXT: Pt with malnutrition mild REVIEWER QUERY TEXT: Malnutrition Severity Malnutrition is documented in the Medical Record. Please specify the severity Such as: -- Mild - first degree -- Moderate - second degree -- Severe - third degree -- Severe malnutrition with marasmus -- Other, please specify The patient's Clinical Indicators include: 12/18 PN " addressing the issue of decreased p.o. intake and malnutrition". Pt with BMI=19.7, please specify the severity of malnutrition. Query created by: Celia Olivares on 12/20/2017 9:47 AM Electronically signed by: Nakul Perez MD 12/22/2017 1:32 PM
== END 2017-12-19 20:02 | DRG 690 ==
LOC: ED 22:30 → ERH 12-16 03:43 → 5RSO 12-16 05:26 → ERH 12-16 06:29 → 5RSO 12-16 06:30 → OBSVTOIN 12-16 21:51 → 5RSO 12-18 21:12
PROVIDERS: ADMIT Internal Medicine Nephrology; ATTEND Internal Medicine Nephrology
DX: N39.0 Urinary tract infection, site not specified (principal); I69.354 Hemiplegia and hemiparesis following cerebral infarction affecting left non-dominant side; E44.1 Mild protein-calorie malnutrition; R64 Cachexia; Z68.1 Body mass index [BMI] 19.9 or less, adult; E11.42 Type 2 diabetes mellitus with diabetic polyneuropathy; I10 Essential (primary) hypertension; F32.9 Major depressive disorder, single episode, unspecified; F41.9 Anxiety disorder, unspecified; M19.90 Unspecified osteoarthritis, unspecified site; R13.10 Dysphagia, unspecified; D64.9 Anemia, unspecified; J32.0 Chronic maxillary sinusitis; Z66 Do not resuscitate; E78.5 Hyperlipidemia, unspecified; F01.50 Vascular dementia, unspecified severity, without behavioral disturbance, psychotic disturbance, mood disturbance, and anxiety; I69.318 Other symptoms and signs involving cognitive functions following cerebral infarction; I69.391 Dysphagia following cerebral infarction; I69.320 Aphasia following cerebral infarction; I69.321 Dysphasia following cerebral infarction; Z79.4 Long term (current) use of insulin; Z79.82 Long term (current) use of aspirin